=== PATIENT | male | born 1955 | race Hispanic/Latino ===

== ENCOUNTER 2022-07-20 08:41 | Inpatient (IN) | payer BC, OTHER, SELFPAY ==
[2022-07-20] MEDS ORDERED: ONDANSETRON 4 MG/2 ML VIAL ONE ×2 (09:17→18:50)
[2022-07-20] MEDS ORDERED: NA CHLORIDE 0.9% 1,000 ML ONE ×2 (09:17→15:22)
[2022-07-20 09:20] LABS: Absolute Lymphocytes (CBC) 0.5 K/uL (0.7-4.9); Hematocrit 33.8 % (39.6-49.0); Lymphocytes % 5.3 % (15.3-44.8); MCV 87.6 fL (80-100); MPV 8.5 fL (7.6-11.3); RBC Red Blood Cell Count 3.86 M/uL (4.33-5.43)
[2022-07-20 09:36] LABS: Bilirubin Total 0.7 mg/dL (0.2-1.0); Potassium 5.1 mmol/L (3.5-5.1); Protein, Total 5.8 g/dL (6.4-8.2)
[2022-07-20] MEDS ORDERED: NA CHLORIDE 0.9% 500 ML ONE (09:49)
[2022-07-20] MEDS ORDERED: AMLODIPINE 10 MG TAB ONE (10:11)
--- NOTE | 2022-07-20 10:21 | RAD REPORT ---
EXAM DESCRIPTION: CTChest Abd Pelvis Wo Con - 07/20/2022 10:02 am CLINICAL HISTORY: fall, rib pain, back pain COMPARISON: CT CHEST ABD PELVIS WO CONT dated 09/20/2007 TECHNIQUE: CT of the chest, abdomen, and pelvis was performed. All CT scans are performed using dose optimization technique as appropriate and may include automated exposure control or mA/KV adjustment according to patient size. FINDINGS: Thorax: Chest Wall: No abnormal mass Lungs: Nodular airspace disease in the superior segment of the left lower lobe. Likely atelectasis as a result of the fusion. Pleura: Small to moderate right pleural effusion. Kari/Mediastinum: No lymphadenopathy. Aorta/Pulmonary Arteries: Unremarkable Heart: Normal size. Multi-vessel coronary artery disease. Small pericardial effusion. Abdomen/Pelvis: Liver: No acute abnormality or suspicious lesions. Biliary: Cholelithiasis. Distended gallbladder. Stomach: No significant focal abnormality. Duodenum: No significant focal abnormality. Pancreas: No significant abnormality. Spleen: No significant abnormality. Adrenal: No suspicious lesions. Kidney/ureter: No hydronephrosis. No renal calculi. Atrophic igiugig kidneys. Right upper pole renal l esion which is likely a cyst. Right iliac fossa renal transplant. No hydronephrosis. Retroperitoneum: No retroperitoneal adenopathy. Vascular: No aneurysm. Advanced atherosclerosis. Bowel: Liquid contents within the rectum.. Peritoneum: No ascites or free air. Bladder: Grossly unremarkable. Reproductive: No masses identified. Bones: No acute fracture. Other: n/a IMPRESSION: 1. No evidence of significant trauma to the chest abdomen, or pelvis. 2. Small to moderate right pleural effusion and likely underlying atelectasis. Very mild nodularity i n the superior segment of the left lower lobe could reflect mild pneumonia or pneumonitis. 3. Distended gallbladder with cholelithiasis but no definite evidence of acute cholecystitis. Could c orrelate with LFTs.
[2022-07-20 10:22] LABS: SARS-COV-2 RT PCR NEGATIVE (NEGATIVE)
--- NOTE | 2022-07-20 11:59 | EDPHYS ---
Physician Documentation [facility] Name: Rg Benavides Jr Age: 66 yrs Sex: Male : 1955 Arrival Date: 07/20/2022 Time: 08:47 Bed 6 Private MD: ED Physician Jeison Rodriguez HPI: 07/20 08:54 This 66 yrs old Male presents to ER via Unassigned with complaints of Diarrhea.rn 08:54 The patient presents to the emergency department with diarrhea. Onset: The rn symptoms/episode began/occurred last night. Possible causes: bowel prep for colonoscopy today. The symptoms are aggravated by bowel prep The symptoms are alleviated by nothing. Associated signs and symptoms: Pertinent positives: diarrhea, nausea, weakness. Severity of symptoms: At their worst the symptoms were moderate in the emergency department the symptoms are unchanged. The patient has not experienced similar symptoms in the past. The patient has not recently seen a physician. Pt reports diarrhea that began last night after starting bowel prep, generalized weakness and fatigue. Denies feeling ill prior to starting bowel prep. NO blood in stool. States was scheduled for colonoscopy today at [facility], was being done for anemia of unknown origin. Pt with hx of kidney cancer and kidney transplant. . Historical: - Allergies: 08:55 PENICILLINS; kc6 08:55 Vancomycin; kc6 - Home Meds: 09:56 pantoprazole 40 mg oral TbEC [Active]; insulin aspart [Active]; tresiba [Active]; kc6 acyclovir 200 mg oral cap [Active]; allopurinol 100 mg oral tab [Active]; amlodipine 10 mg oral tab [Active]; atorvastatin 10 mg oral tab [Active]; furosemide 40 mg oral tab [Active]; mycophenolate [Active]; prednisone 5 mg oral tab [Active]; tacrolimus 1 mg oral cap [Active]; - PMHx: 08:55 Diabetes mellitus; kc6 09:56 Hypertensive disorder; hyperlipidemia; kc6 - PSHx: 09:56 right kidney removal; kc6 - Immunization history:: Client reports receiving the 2nd dose of the Covid vaccine, Flu vaccine is not up to date. - Social history:: Smoking status: Patient denies any tobacco usage or history of. - Family history:: not pertinent. - Hospitalizations: : No recent hospitalization is reported. ROS: 08:54 Constitutional: Negative for fever, chills, and weight loss, Eyes: Negative for injury, rn pain, redness, and discharge, Cardiovascular: Negative for chest pain, palpitations, and edema, Respiratory: Negative for shortness of breath, cough, wheezing, and pleuritic chest pain, Abdomen/GI: + nausea and diarrhea Back: Negative for injury and pain, MS/Extremity: Negative for injury and deformity, Skin: Negative for injury, rash, and discoloration, Neuro: + generalized weakness Exam: 08:54 Constitutional: Thin male, tremulous Head/Face: Normocephalic, atraumatic. ENT: dry rn MM Cardiovascular: Regular rate and rhythm. No pulse deficits. Respiratory: + mild tachypnea, no retractions Abdomen/GI: soft, non-tender, non-distended Skin: Warm, dry MS/ Extremity: Pulses equal, no cyanosis. Stool down left leg. Neuro: Awake and alert, GCS 15 15:39 ECG was reviewed by the Attending Physician. rn Vital Signs: 08:52 BP 213 / 96; Pulse 81; Resp 22 S; Temp 97.9(O); Pulse Ox 97% on R/A; Weight 63.5 kg kc6 (R); Height 5 ft. 10 in. (177.80 cm) (R); Pain 0/10; 09:15 BP 220 / 80; Pulse 71; Resp 15 S; Pulse Ox 94% on R/A; Pain 0/10; kc6 10:15 BP 196 / 74; Pulse 69; Resp 18 S; Pulse Ox 92% on R/A; kc6 11:37 BP 219 / 100; Pulse 76; Resp 25; Pulse Ox 95% on R/A; ld1 12:37 BP 183 / 68; Pulse 69; Resp 17 S; Pulse Ox 96% on R/A; kc6 13:30 BP 182 / 69; Pulse 67; Resp 18 S; Pulse Ox 96% on R/A; kc6 08:52 Body Mass Index 20.09 (63.50 kg, 177.80 cm) kc6 MDM: 08:47 Patient medically screened. rn 11:05 ED course: states was vomiting last week, CT shows questionable pneumonitis. 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 They are speaking with his doctors at [facility] and we will discuss again. . 11:56 Differential diagnosis: viral gastroenteritis, gastroenteritis, diarrhea from colon rn prep, volume depletion, aspiration, pneumonia, covid, flu, kidney failure. Data reviewed: vital signs, nurses notes, lab test result(s). 11:57 Consideration of Admission/Observation Patient was admitted/placed on observation. rn Escalation of care including admission/observation considered. Independent interpretation of the following test(s) in the Emergency Department. Historians other than the Patient: Spouse/Significant Other: Most of history from spouse and family. Counseling: I had a detailed discussion with the patient and/or guardian regarding: the historical points, exam findings, and any diagnostic results supporting the discharge/admit diagnosis, lab results, radiology results, the need for further work-up and treatment in the hospital. Response to treatment: the patient's symptoms have mildly improved after treatment, and as a result, I will admit patient. ED course: Pt still very weak, spouse spoke with kidney doctor at [facility], does not want patient transferred to [facility], recommends admission with abx for possible aspiration, fluids, and then can f/u for another colonoscopy and EGD.. 17:12 ED course: Pt since arrival has been awake, answering all of my questions was alert and rn oriented to person/place/situation. Pt dehydrated and somnolent but answering all of my questions entire visit.. 07/20 08:48 Order name: CBC with Diff rn 07/20 08:48 Order name: CMP rn 07/20 08:48 Order name: Lipase rn 07/20 08:48 Order name: COVID-19/FLU A+B rn 07/20 09:22 Order name: CBC with Automated Diff; Complete Time: 09:32 EDMS 07/20 09:36 Order name: Comprehensive Metabolic Panel; Complete Time: 09:43 EDMS 07/20 09:36 Order name: Lipase; Complete Time: 09:43 EDMS 07/20 10:22 Order name: COVID-19/FLU A+B; Complete Time: 10:40 EDMS 07/20 15:38 Order name: Phosphorus; Complete Time: 17:11 EDMS 07/20 15:38 Order name: Creatine Phosphokinase; Complete Time: 17:11 EDMS 07/20 15:38 Order name: NT PRO-BNP; Complete Time: 17:11 EDMS 14 15:38 Order name: T4 Free; Complete Time: 17:11 EDMS 14 15:38 Order name: Magnesium; Complete Time: 17:11 EDMS 14 15:38 Order name: Thyroid Stimulating Hormone; Complete Time: 17:11 EDMS 14 08:48 Order name: IV Saline Lock; Complete Time: 08:58 rn 07/20 09:44 Order name: CT Chest Abdomen Pelvis W/O Contrast rn 07/20 10:12 Order name: Diet Ada 1800 García; Complete Time: 10:12 aa5 07/20 10:21 Order name: CT; Complete Time: 10:40 EDMS 02 11:57 Order name: EKG; Complete Time: 11:57 rn 07/20 15:23 Order name: CT; Complete Time: 17:11 EDMS 07/20 16:40 Order name: Ammonia; Complete Time: 17:11 EDMS 07/20 17:06 Order name: Glucose, Ancillary Testing; Complete Time: 17:11 EDMS 07/20 21:41 Order name: Glucose, Ancillary Testing EDMS 07/20 23:45 Order name: ABG Arterial Blood Gas EDMS 07/20 08:48 Order name: Labs collected and sent; Complete Time: 09:12 rn 14 08:48 Order name: Cardiac monitoring; Complete Time: 08:58 rn 14 08:48 Order name: O2 Sat Monitoring; Complete Time: 08:58 rn 07/20 11:57 Order name: EKG - Nurse/Tech; Complete Time: 12:24 rn EC:39 Rate is 70 beats/min. Rhythm is regular. QRS [place] is Normal. TN interval is prolonged rn at 250 msec. QRS interval is normal. QT interval is normal. No Q waves. T waves are Normal. No ST changes noted. Clinical impression: 1st degree heart block. Interpreted by me. Reviewed by me. Administered Medications: 09:18 Drug: Zofran (Ondansetron) 4 mg Route: IVP; Site: right antecubital; kc6 10:18 Follow up: Response: No adverse reaction; Nausea is decreased kc6 09:19 Drug: NS 0.9% 1000 ml Route: IV; Rate: 1 bolus; Site: right antecubital; kc6 10:19 Follow up: Response: No adverse reaction; IV Status: Completed infusion; IV Intake: kc6 1000ml 09:47 Drug: NS 0.9% 500 ml Route: IV; Rate: bolus; Site: right antecubital; ld1 10:47 Follow up: Response: No adverse reaction; IV Status: Completed infusion; IV Intake: kc6 500ml 10:09 Drug: amLODIPine 10 mg Route: PO; kc6 11:09 Follow up: Response: No adverse reaction kc6 12:39 Drug: Clindamycin 600 mg Route: IVPB; Infused Over: 30 mins; Site: right antecubital; kc6 13:00 Follow up: Response: No adverse reaction; IV Status: Completed infusion; IV Intake: [id number] 13:38 Drug: LevaQUIN (levofloxacin) 500 mg Volume: 100 ml; Route: IVPB; Infused Over: 60 kc6 mins; Site: right antecubital; 07/21 07:35 Follow up: Response: No adverse reaction; IV Status: Completed infusion; IV Intake: kc6 100ml Disposition Summary: 07/20/22 11:59 Hospitalization Ordered Hospitalization Status: Observation rn Provider: Jacob Mercedes rn Condition: Stable rn Problem: new rn Symptoms: have improved rn Bed/Room Type: Standard rn Location: Telemetry/MedSurg (observation)(07/21/22 00:19) cg Room Assignment: [facility](07/21/22 00:19) Diagnosis - Diarrhea, unspecified rn - Muscle weakness (generalized) rn - Dehydration rn - Acute interstitial pneumonitis rn Forms: - Medication Reconciliation Form rn - SBAR form rn Signatures: Dispatcher [employer] EDJeison Myrick MD MD rn Garcia, Cindy RN RN Olivia Cota RN RN [id number] Camilla Tanner RN RN Rosy Good, RN RN kc6 Corrections: (The following items were deleted from the chart) 07/20 14:20 11:59 Telemetry/MedSurg (observation) lala turcios 14:20 11:59 rn karolina 07/21 00:19 07/20 14:20 [facility] ER HOLD [email or web address] cg 07/21 00:19 07/20 14:20 ERHOLD- jlMaegan cg
--- NOTE | 2022-07-20 11:59 | ER ---
Nurse's Notes [facility] Name: Rg Benavides Jr Age: 66 yrs Sex: Male : 1955 Arrival Date: 07/20/2022 Time: 08:47 Bed 6 Private MD: Diagnosis: Diarrhea, unspecified;Muscle weakness (generalized);Dehydration;Acute interstitial pneumonitis Presentation: 07/20 08:52 Chief complaint: EMS states: client [facility] this morning at kc6 1030 for a colonoscopy. stated diarrhea with the bowel prep and has just not "felt right". Coronavirus screen: Vaccine status: Patient reports receiving the 2nd dose of the covid vaccine. At this time, the client does not indicate any symptoms associated with coronavirus-19. Ebola Screen: No symptoms or risks identified at this time. Initial Sepsis Screen: Does the patient meet any 2 criteria? No. Patient's initial sepsis screen is negative. Does the patient have a suspected source of infection? No. Patient's initial sepsis screen is negative. Risk Assessment: Do you want to hurt yourself or someone else? Patient reports no desire to harm self or others. Onset of symptoms was July 20, 2022. 08:52 Method Of Arrival: EMS: [facility] 08:52 Acuity: EVARISTO 3 kc6 Triage Assessment: 08:55 General: Appears in no apparent distress. uncomfortable, Behavior is calm, cooperative, kc6 appropriate for age. Pain: Denies pain. EENT: No signs and/or symptoms were reported regarding the EENT system. Neuro: Asif Agitation-Sedation Scale (RASS): 0 - Alert and Calm Level of Consciousness is awake, alert, obeys commands, Oriented to person, place, Appropriate for age. Cardiovascular: Capillary refill < 3 seconds. Respiratory: Airway is patent Trachea midline Respiratory effort is even, unlabored, Respiratory pattern is regular, symmetrical. GI: Abdomen is flat, non-distended, Bowel sounds present X 4 quads. Reports diarrhea, nausea, vomiting, Patient currently denies abdominal pain. : No signs and/or symptoms were reported regarding the genitourinary system. Derm: No signs and/or symptoms reported regarding the dermatologic system. Skin is intact, Skin is dry, Skin is pale, Skin temperature is warm. Musculoskeletal: No signs and/or symptoms reported regarding the musculoskeletal system. Circulation, motion, and sensation intact. Capillary refill < 3 seconds, Range of motion: intact in all extremities. Historical: - Allergies: 08:55 PENICILLINS; kc6 08:55 Vancomycin; kc6 - Home Meds: 09:56 pantoprazole 40 mg oral TbEC [Active]; insulin aspart [Active]; tresiba [Active]; kc6 acyclovir 200 mg oral cap [Active]; allopurinol 100 mg oral tab [Active]; amlodipine 10 mg oral tab [Active]; atorvastatin 10 mg oral tab [Active]; furosemide 40 mg oral tab [Active]; mycophenolate [Active]; prednisone 5 mg oral tab [Active]; tacrolimus 1 mg oral cap [Active]; - PMHx: 08:55 Diabetes mellitus; kc6 09:56 Hypertensive disorder; hyperlipidemia; kc6 - PSHx: 09:56 right kidney removal; kc6 - Immunization history:: Client reports receiving the 2nd dose of the Covid vaccine, Flu vaccine is not up to date. - Social history:: Smoking status: Patient denies any tobacco usage or history of. - Family history:: not pertinent. - Hospitalizations: : No recent hospitalization is reported. Screenin:58 [facility] ED Fall Risk Assessment (Adult) History of falling in the last 3 months, kc6 including since admission No falls in past 3 months (0 pts) Confusion or Disorientation No (0 pts) Intoxicated or Sedated No (0 pts) Impaired Gait No (0 pts) Mobility Assist Device Used No (0 pt) Altered Elimination No (0 pt) Score/Fall Risk Level 0 - 2 = Low Risk Oriented to surroundings, Maintained a safe environment, Educated pt \\T\\ family on fall prevention, incl call for assistance when getting out of bed, Assessed \\T\\ reinforced patient's understanding of fall precautions, Hourly rounding (assess needs \\T\\ fall precautionary measures) done. Abuse screen: Denies threats or abuse. Denies injuries from another. Nutritional screening: No deficits noted. Tuberculosis screening: No symptoms or risk factors identified. Assessment: 08:52 Reassessment: please see triage assessment. [facility] 09:52 Reassessment: Patient appears in no apparent distress at this time. No changes from [facility] previously documented assessment. Patient and/or family updated on plan of care and expected duration. Pain level reassessed. 10:52 Reassessment: Patient appears in no apparent distress at this time. No changes from kc6 previously documented assessment. Patient and/or family updated on plan of care and expected duration. Pain level reassessed. 11:52 Reassessment: Patient appears in no apparent distress at this time. Patient and/or kc6 family updated on plan of care and expected duration. Pain level reassessed. 12:52 Reassessment: Patient appears in no apparent distress at this time. No changes from kc6 previously documented assessment. Patient and/or family updated on plan of care and expected duration. Pain level reassessed. 13:00 Reassessment: please see [facility] for further charting. kc6 17:00 Reassessment: Pt family reporting pt is altered - "not normal for him, he doesn't know ld1 who we are or what is going on. He woke up this morning different and extremely confused. He stopped taking eliquis on Tuesday prior to the bowel prep." Called Dr. Mercedes, ordered MRI. Dr. Mercedes aware of situation. 17:15 Reassessment: Pt displaying confusion, incontinent, unable to answer orientation ld1 questions, does not recognize family. Notified Dr. Mercedes of confusion. 17:15 General: Appears in no apparent distress. comfortable, slender, Behavior is calm. ld1 Neuro: Level of Consciousness is awake, confused, Oriented to none. Cardiovascular: Capillary refill < 3 seconds Patient's skin is warm and dry. Rhythm is sinus rhythm. Respiratory: Airway is patent Respiratory effort is even, unlabored. GI: Last BM at 18:43. Vital Signs: 08:52 BP 213 / 96; Pulse 81; Resp 22 S; Temp 97.9(O); Pulse Ox 97% on R/A; Weight 63.5 kg kc6 (R); Height 5 ft. 10 in. (177.80 cm) (R); Pain 0/10; 09:15 BP 220 / 80; Pulse 71; Resp 15 S; Pulse Ox 94% on R/A; Pain 0/10; kc6 10:15 BP 196 / 74; Pulse 69; Resp 18 S; Pulse Ox 92% on R/A; kc6 11:37 BP 219 / 100; Pulse 76; Resp 25; Pulse Ox 95% on R/A; ld1 12:37 BP 183 / 68; Pulse 69; Resp 17 S; Pulse Ox 96% on R/A; kc6 13:30 BP 182 / 69; Pulse 67; Resp 18 S; Pulse Ox 96% on R/A; kc6 08:52 Body Mass Index 20.09 (63.50 kg, 177.80 cm) kc6 ED Course: 08:47 Patient arrived in ED. rn 08:47 Jeison Rodriguez MD is Attending Physician. rn 08:52 Rsoy Levy RN is Primary Nurse. kc6 08:55 Triage completed. kc6 08:55 Arm band placed on. kc6 08:58 Patient has correct armband on for positive identification. Bed in low position. Call kc6 light in reach. Side rails up X2. Adult w/ patient. 08:58 Maintain EMS IV. Dressing intact. Good blood return noted. Site clean \\T\\ dry. Gauge \\T\\ larry 6 site: 20G LAC. 09:18 CBC with Diff Sent. kc6 09:18 COVID-19/FLU A+B Sent. kc6 09:18 CMP Sent. kc6 09:18 Lipase Sent. kc6 09:19 Inserted saline lock: 20 gauge in right antecubital area, using aseptic technique. kc6 Blood collected. 11:58 Jacob Mercedes MD is Hospitalizing Provider. rn 12:32 EKG done, by ED staff. tm3 14:18 No provider procedures requiring assistance completed. Patient admitted, IV remains in kc6 place. 18:37 Cleaned of incontinence. Linen changed. ld1 19:22 Primary Nurse role handed off by Rosy Levy, NAJMA mw2 Administered Medications: 09:18 Drug: Zofran (Ondansetron) 4 mg Route: IVP; Site: right antecubital; kc6 10:18 Follow up: Response: No adverse reaction; Nausea is decreased kc6 09:19 Drug: NS 0.9% 1000 ml Route: IV; Rate: 1 bolus; Site: right antecubital; kc6 10:19 Follow up: Response: No adverse reaction; IV Status: Completed infusion; IV Intake: kc6 1000ml 09:47 Drug: NS 0.9% 500 ml Route: IV; Rate: bolus; Site: right antecubital; ld1 10:47 Follow up: Response: No adverse reaction; IV Status: Completed infusion; IV Intake: kc6 500ml 10:09 Drug: amLODIPine 10 mg Route: PO; kc6 11:09 Follow up: Response: No adverse reaction kc6 12:39 Drug: Clindamycin 600 mg Route: IVPB; Infused Over: 30 mins; Site: right antecubital; kc6 13:00 Follow up: Response: No adverse reaction; IV Status: Completed infusion; IV Intake: [id number] 13:38 Drug: LevaQUIN (levofloxacin) 500 mg Volume: 100 ml; Route: IVPB; Infused Over: 60 kc6 mins; Site: right antecubital; 07/21 07:35 Follow up: Response: No adverse reaction; IV Status: Completed infusion; IV Intake: kc6 100ml Medication: 07/20 14:19 VIS not applicable for this client. kc6 Intake: 10:19 IV: 1000ml; Total: 1000ml. kc6 10:47 IV: 500ml; Total: 1500ml. kc6 13:00 IV: 50ml; Total: 1550ml. kc6 07/21 07:35 IV: 100ml; Total: 1650ml. kc6 Outcome: 07/20 11:59 Decision to Hospitalize by Provider. rn 14:18 Admitted to ER Hold. Please see [facility] for further documentation. kc6 14:18 Condition: stable 14:18 Instructed on the need for admit. 07/21 02:29 Patient left the ED. jb4 Signatures: Luiz Rodgers tm3 Jeison Rodriguez MD MD rn Bryson, James, RN RN jb4 Ana Rosa Rodríguez mw2 Camilla Tanner RN RN ld1 Rosy Levy RN RN kc6 Corrections: (The following items were deleted from the chart) 07/20 09:53 08:55 GI: Abdomen is flat, non-distended, Bowel sounds present X 4 quads. Reports kc6 diarrhea, Patient currently denies abdominal pain, nausea, vomiting, kc6 09:53 08:55 Derm: No signs and/or symptoms reported regarding the dermatologic system. Skin kc6 is intact, Skin is pink, warm \\T\\ dry. kc6
[2022-07-20] MEDS ORDERED: CLINDAMYCIN 600MG/D5W 50 ML IV ONE (12:30)
[2022-07-20] MEDS ORDERED: Levofloxacin500mg IV 500 MG/100 ML BAG IV ONE (12:31)
[2022-07-20] MEDS ORDERED: ALBUTEROL 2.5 MG/3 ML NEB SOL NEB PRN (14:24)
[2022-07-20] MEDS ORDERED: SODIUM CHLORIDE 0.9% 10ML INJ IV PRN (14:29)
[2022-07-20] MEDS ORDERED: GLUCAGON 1 MG/VIAL IM PRN (14:30)
--- NOTE | 2022-07-20 14:31 | P.HP ---
Certification for Inpatient Patient admitted to: Inpatient With expected LOS: >2 Midnights Patient will require the following post-hospital care: None Practitioner: I am a practitioner with admitting privileges, knowledge of patient current condition, hospital course, and medical plan of care. Services: Services provided to patient in accordance with Admission requirements found in Title 42 Section 412.3 of the Code of Federal Regulations <Liliana Arizmendi - Last Filed: 07/20/22 18:31> Patient History Date of Service: 07/20/22 Reason for admission: N\V\D, AMS History of Present Illness: Patient is a 66-year-old male with a past medical history significant for DM 2, GERD, gout, HLD, kidney transplant, hypertension who presents with complaint of nausea, vomiting and diarrhea. Patient is currently alert and oriented x1, confused and unable to provide any history. Per family report patient has been having symptoms of intermittent nausea, vomiting and diarrhea for a long time now.. 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 Recently patient started having poor appetite and has lost significant amount of weight. His hemoglobin also dropped and patient's GI doctor wanted to perform a colonoscopy for further assessment. Family reported that patient started bowel prep 2 days ago and was unable to complete the regimen due to nausea, vomiting and diarrhea. Patient was also noted to be very weak and fatigued. Family also reported that patient has been having iron infusion in the last couple of months. No other signs and symptoms reported. Symptoms are aggravated or relieved by nothing. Patient was brought to the hospital for medical evaluation. - Past Medical/Surgical History -: DM 2 -: History of kidney transplant -: GERD -: HLD -: HTN -: GOUT Past Surgical History: Unable to obtain - Family History Family History: Reviewed- Non-Contributory - Social History Smoking Status: Unknown if ever smoked Alcohol use: No CD- Drugs: No Caffeine use: No Place of Residence: Home <IsrachadLiliana matute Jared - Last Filed: 07/20/22 18:31> Date of Service: 07/20/22 <Jacob Mercedes - Last Filed: 07/20/22 22:14> Allergies Penicillins Allergy (Verified 07/20/22 14:24) Itching/Hives/Rash vancomycin Allergy (Verified 07/20/22 14:24) Itching/Hives/Rash Review of Systems is unable to be obtained (Unable to obtain. Patient confused.) <KyleighLiliana Jared - Last Filed: 07/20/22 18:31> Physical Examination - Physical Exam General: Alert, Oriented x1, Cooperative, Mild distress, Confused HEENT: Atraumatic, PERRLA, Mucous membr. moist/pink, EOMI, Sclerae nonicteric Neck: Supple, 2+ carotid pulse no bruit, No LAD, Without JVD or thyroid abnormality Respiratory: Diminished Cardiovascular: No edema, Regular rate/rhythm, Normal S1 S2 Capillary refill: <2 Seconds Gastrointestinal: Hypoactive, Non-distended, No tenderness Musculoskeletal: No clubbing, No swelling, No contractures, No tenderness Integumentary: No rashes, No breakdown, No significant lesion Neurological: Normal speech, Normal tone, Normal affect Lymphatics: No axilla or inguinal lymphadenopathy - Studies Laboratory Data (last 24 hrs) 07/20/22 09:10: Sodium 137, Potassium 5.1, BUN 47 H, Creatinine 3.31 H, Glucose 131 H, Total Bilirubin 0.7, AST 10 L, ALT 11 L, Alkaline Phosphatase 111, Lipase 43 L 07/20/22 09:10: WBC 9.10, Hgb 11.0 L, Hct 33.8 L, Plt Count 257 <Liliana Arizmendi - Last Filed: 07/20/22 18:31> - Studies Laboratory Data (last 24 hrs) 07/20/22 09:10: Phosphorus 4.0, Magnesium 2.1 07/20/22 09:10: Sodium 137, Potassium 5.1, BUN 47 H, Creatinine 3.31 H, Glucose 131 H, Total Bilirubin 0.7, AST 10 L, ALT 11 L, Alkaline Phosphatase 111, Lipase 43 L 07/20/22 09:10: WBC 9.10, Hgb 11.0 L, Hct 33.8 L, Plt Count 257 <Jacob Mercedes - Last Filed: 07/20/22 22:14> Assessment and Plan - Plan --ENMA on CKD 3. Nephrology consulted. Further management per equal opportunity assistant. --Acute encephalopathy. Likely secondary to pneumonia. CT head unremarkable for any acute intracranial abnormality. MRI brain pending for further evaluation. -- Pneumonia. Continue antibiotics, neb treatment with albuterol \Atrovent and O2 therapy as needed. --Dehydration. Likely secondary to fluid losses. Further management per equal opportunity assistant. --DM2. BS monitoring with sliding scale insulin. --History of kidney transplant. Continue home medications. --Hypertension. Poorly controlled. We will allow permissive hypertension pending resolution of MRI Brain. Continue hydralazine as needed for SBP greater than 180 mmHg. --Nausea\vomiting. Antiemetics on board. Continue supportive care. --Diarrhea. Family reports longstanding intermittent diarrhea. Stool studies pending to rule out any infectious process. Continue supportive care. -- Gout. Continue home medication. --GERD. Continue Protonix. --DVT prophylaxis with heparin subQ Discharge Plan: Home Plan to discharge in: Greater than 2 days - Advance Directives Does patient have a Living Will: No Does patient have a Durable POA for Healthcare: No - Code Status/Comfort Care Code Status Assessed: Yes Physician Review: Patient Assessed, Agree with Above Assessment and Plan Critical Care: No <Liliana Arizmendi - Last Filed: 07/20/22 18:31> Physician Review: Patient Assessed, Agree with Above Assessment and Plan Physician Review Additional Text: Correction - CKD IV not ENMA. Has multiple outpatient creatinine readings of 4+. Also, tacrolimus level ordered to evaluate other causes of encephalopathy. <Jacob Mercedes - Last Filed: 07/20/22 22:14>
[2022-07-20] MEDS ORDERED: D10W 250 ML BAG IV PRN (14:34)
[2022-07-20] MEDS ORDERED: ALBUTEROL 2.5 MG/3 ML NEB SOL NEB SCH (15:00)
[2022-07-20] MEDS: ASPIRIN 81 MG CHEWABLE TABLET PO SCH (15:00)
[2022-07-20] MEDS ORDERED: NA CHLORIDE 0.9% 1,000 ML IV SCH (15:00)
[2022-07-20] MEDS ORDERED: predniSONE 10 MG TAB ONE (15:22)
[2022-07-20] MEDS ORDERED: ASPIRIN 81 MG CHEWABLE TABLET ONE (15:22)
--- NOTE | 2022-07-20 15:22 | RAD REPORT ---
EXAM DESCRIPTION: CT - Head Brain Wo Cont - 07/20/2022 3:14 pm CLINICAL HISTORY: AMS Fall, trauma, head injury COMPARISON: No comparisons TECHNIQUE: All CT scans are performed using dose optimization technique as appropriate and may inclu de automated exposure control or mA/KV adjustment according to patient size. FINDINGS: No intracranial hemorrhage, hydrocephalus or extra-axial fluid collection.Mild brain atrop hy is present.No areas of brain edema or evidence of midline shift. Vertebral atherosclerosis. The paranasal sinuses and mastoids are clear. The calvarium is intact. IMPRESSION: No acute intracranial abnormality.
[2022-07-20] MEDS: predniSONE 5 MG TAB PO SCH (15:30)
[2022-07-20 15:37] LABS: Magnesium 2.1 mg/dL (1.6-2.4)
[2022-07-20 15:38] LABS: Thyroid Stimulating Hormone 6.46 uIU/mL (0.358-3.740)
[2022-07-20] MEDS ORDERED: HYDROCODONE/APAP 5/325 MG TAB ONE (16:04)
[2022-07-20] MEDS: HYDROCODONE/APAP 5/325 MG TAB PO PRN (16:04)
[2022-07-20] MEDS: INSULIN -REGULAR HUMAN 50 UNIT/0.5 ML ML SQ SCH ×2 (16:30→21:00)
[2022-07-20] MEDS: PANTOPRAZOLE 40 MG INJ IVP SCH (17:00)
[2022-07-20] MEDS: AZITHROMYCIN IV 500 MG in NA CHLORIDE 0.9% 250 ML IVPB SCH (17:00)
--- NOTE | 2022-07-20 17:14 | P.CNS ---
Date of Consult: 07/20/22 Reason for Consult: CKD Requesting Physician: Jacob Mercedes Chief Complaint: AMS History of Present Illness: 66 yo HM CKD presented to the ER with moderate to severe, worsening AMS with associated weakness. He started a bowel prep on Tuesday for a colonoscopy that was scheduled for today. He had a fall yesterday afternoon at home but then seemed to be reasonably well the rest of the evening. He did not take his Eliquis yesterday. His found him this morning in a contracted and weakened state soiled with diarrhea. He was seen and examined in the ER. He is unable to proved an adequate HPI/ ROS. His family states that he is not himself and usually knows his medications well. +Urine output He had a kidney transplant in 2008. His current renal transplant is slowly failing but he has plans for another kidney transplant. The colonoscopy was in preparation for another renal transplant. The patient's daughter reports his serum creatinine has been running in the 4s. 08:54 This 66 yrs old Male presents to ER via Unassigned with complaints of Diarrhea.rn 08:54 The patient presents to the emergency department with diarrhea. Onset: The rn symptoms/episode began/occurred last night. Possible causes: bowel prep for colonoscopy today. The symptoms are aggravated by bowel prep The symptoms are alleviated by nothing. Associated signs and symptoms: Pertinent positives: diarrhea, nausea, weakness. Severity of symptoms: At their worst the symptoms were moderate in the emergency department the symptoms are unchanged. The patient has not experienced similar symptoms in the past. The patient has not recently seen a physician. Pt reports diarrhea that began last night after starting bowel prep, generalized weakness and fatigue. Denies feeling ill prior to starting bowel prep. NO blood in stool. States was scheduled for colonoscopy today at [facility] [place], was being done for anemia of unknown origin. Pt with hx of kidney cancer and kidney transplant. . Allergies Penicillins Allergy (Verified 07/20/22 14:24) Itching/Hives/Rash vancomycin Allergy (Verified 07/20/22 14:24) Itching/Hives/Rash Home medications list reviewed: Yes - Past Medical/Surgical History Diabetic: Yes -: CKD IV -: Kidney Transplant 2008 -: HTN -: DM II -: CAD/ PAD -: Afib - Social History Place of Residence: Home Review of Systems 10-point ROS is otherwise unremarkable General: Weakness Gastrointestinal: No Distention Neurological: Confusion Physical Examination Temp Pulse Resp BP Pulse Ox 65 16 184/75 H 97 07/20/22 16:00 07/20/22 16:00 07/20/22 16:00 07/20/22 16:00 General: In no apparent distress, Cooperative HEENT: Atraumatic Neck: Supple Respiratory: Clear to auscultation bilaterally Cardiovascular: No edema, Regular rate/rhythm Gastrointestinal: Soft and benign, Non-distended Musculoskeletal: No clubbing, No contractures Integumentary: No rashes, No cyanosis Neurological: Abnormal speech, Abnormal affect Laboratory Data (last 24 hrs) 07/20/22 09:10: Phosphorus 4.0, Magnesium 2.1 07/20/22 09:10: Sodium 137, Potassium 5.1, BUN 47 H, Creatinine 3.31 H, Glucose 131 H, Total Bilirubin 0.7, AST 10 L, ALT 11 L, Alkaline Phosphatase 111, Lipase 43 L 07/20/22 09:10: WBC 9.10, Hgb 11.0 L, Hct 33.8 L, Plt Count 257 Imagings Data: EXAM DESCRIPTION: CT - Head Brain Wo Cont - 07/20/2022 3:14 pm CLINICAL HISTORY: AMS Fall, trauma, head injury COMPARISON: No comparisons TECHNIQUE: All CT scans are performed using dose optimization technique as appropriate and may include automated exposure control or mA/KV adjustment according to patient size. FINDINGS: No intracranial hemorrhage, hydrocephalus or extra-axial fluid collection.Mild brain atrophy is present.No areas of brain edema or evidence of midline shift. Vertebral atherosclerosis. The paranasal sinuses and mastoids are clear. The calvarium is intact. IMPRESSION: No acute intracranial abnormality. EXAM DESCRIPTION: CTChest Abd Pelvis Wo Con - 07/20/2022 10:02 am CLINICAL HISTORY: fall, rib pain, back pain COMPARISON: CT CHEST ABD PELVIS WO CONT dated 09/20/2007 TECHNIQUE: CT of the chest, abdomen, and pelvis was performed. All CT scans are performed using dose optimization technique as appropriate and may include automated exposure control or mA/KV adjustment according to patient size. FINDINGS: Thorax: Chest Wall: No abnormal mass Lungs: Nodular airspace disease in the superior segment of the left lower lobe. Likely atelectasis as a result of the fusion. Pleura: Small to moderate right pleural effusion. Kari/Mediastinum: No lymphadenopathy. Aorta/Pulmonary Arteries: Unremarkable Heart: Normal size. Multi-vessel coronary artery disease. Small pericardial e ffusion. Abdomen/Pelvis: Liver: No acute abnormality or suspicious lesions. Biliary: Cholelithiasis. Distended gallbladder. Stomach: No significant focal abnormality. Duodenum: No significant focal abnormality. Pancreas: No significant abnormality. Spleen: No significant abnormality. Adrenal: No suspicious lesions. Kidney/ureter: No hydronephrosis. No renal calculi. Atrophic [place] kidneys. Right upper pole renal lesion which is likely a cyst. Right iliac fossa renal transplant. No hydronephrosis. Retroperitoneum: No retroperitoneal adenopathy. Vascular: No aneurysm. Advanced atherosclerosis. Bowel: Liquid contents within the rectum.. Peritoneum: No ascites or free air. Bladder: Grossly unremarkable. Reproductive: No masses identified. Bones: No acute fracture. Other: n/a IMPRESSION: 1. No evidence of significant trauma to the chest abdomen, or pelvis. 2. Small to moderate right pleural effusion and likely underlying atelectasis. Very mild nodularity in the superior segment of the left lower lobe could reflect mild pneumonia or pneumonitis. 3. Distended gallbladder with cholelithiasis but no definite evidence of acute cholecystitis. Could correlate with LFTs. Conclusions/Impression: CKD IV Renal Transplant 2008 -No NSAIDs -Start gentle IVF -Check tacrolimus level -Check UA -Restart Prednisone and Mycophenolate Hyperkalemia -Gentle IVF -Renal diet HTN with CKD -Hydralazine IV prn -Start Amlodipine 5mg BID DM II with CKD -RISS Anemia in chronic illness -Monitor H&H Toxic Metabolic Encephalopathy -CT Head negative for acute change -Brain MRI pending CAD PAD/ Atherosclerosis of aorta Paroxysmal Afib -Restart Eliquis -Check echocardiogram Thank you kindly for the consultation
[2022-07-20] MEDS ORDERED: PANTOPRAZOLE 40 MG INJ ONE (18:20)
[2022-07-20] MEDS ORDERED: AZITHROMYCIN 500 MG INJ IVPB ONE (18:20)
[2022-07-20] MEDS ORDERED: NA CHLORIDE 0.9% 250 ML ONE (18:21)
[2022-07-20] MEDS ORDERED: HYDRALAZINE HCL 20 MG/ML VIAL IV PRN ×2 (18:22→18:25)
[2022-07-20] MEDS: ONDANSETRON 4 MG/2 ML VIAL IV PRN (18:47)
[2022-07-20] MEDS: IPRATROPIUM BROM 0.5MG/2.5ML NEB SCH (20:00)
[2022-07-20] MEDS: NACHLORIDE 0.45% 1,000 ML IV SCH (20:00)
[2022-07-20] MEDS: ALBUTEROL 2.5 MG/3 ML NEB SOL NEB SCH (20:00)
[2022-07-20] MEDS: CEFTRIAXONE 1,000 MG in NA CHLORIDE 0.9% 50 ML IVPB SCH (20:00)
[2022-07-20] MEDS: HEPARIN 5000 UNIT/ML 1 ML VIAL SQ SCH (21:00)
[2022-07-20] MEDS: AMLODIPINE 5 MG TAB PO SCH (21:00)
[2022-07-20] MEDS ORDERED: HEPARIN 5000 UNIT/ML 1 ML VIAL ONE (21:38)
[2022-07-20] MEDS ORDERED: CEFTRIAXONE 1000 MG/VIAL ONE (21:38)
[2022-07-20] MEDS ORDERED: NA CHLORIDE 0.9% 100 ML ONE (21:39)
[2022-07-20] MEDS ORDERED: NACHLORIDE 0.45% 1,000 ML IV ONE (21:43)
--- NOTE | 2022-07-20 22:43 | P.PN ---
Date of Service: 07/20/22 Planned on starting mycophenolate 250 mg p.o. twice daily tonight as recommended by nephrology although patient still with encephalopathy, is disoriented and failed bedside swallow screen. We will need to hold oral medications tonight. Tacrolimus level sent off. Patient may require Dobbhoff if mentation does not improve overnight. MRI brain ordered. Neurological exam nonfocal.
[2022-07-20 23:42] LABS: Blood Gas Oxyhemoglobin 82.7 % (94-97); Blood O2 Saturation 85.6 % (92-98.5)
[2022-07-21] MEDS: ALBUTEROL 2.5 MG/3 ML NEB SOL NEB SCH ×2 (02:00→08:00)
[2022-07-21] MEDS ORDERED: levETIRAcetam 1,000 MG in NA CHLORIDE 0.9% 100 ML IV ONE (02:41)
[2022-07-21] MEDS ORDERED: NA CHLORIDE 0.9% 100 ML ONE (02:58)
[2022-07-21] MEDS ORDERED: LEVETIRACETAM 500 MG/5 ML VIAL IV ONE (03:02)
[2022-07-21] MEDS: IPRATROPIUM BROM 0.5MG/2.5ML NEB SCH ×2 (03:10→08:00)
[2022-07-21 04:10] LABS: Absolute Lymphocytes (CBC) 0.3 K/uL (0.7-4.9); Hematocrit 31.3 % (39.6-49.0); Lymphocytes % 3.8 % (15.3-44.8); MCV 88.4 fL (80-100); MPV 9.1 fL (7.6-11.3); RBC Red Blood Cell Count 3.54 M/uL (4.33-5.43)
[2022-07-21 04:48] LABS: Potassium 5.3 mmol/L (3.5-5.1); Thyroid Stimulating Hormone 3.66 uIU/mL (0.358-3.740)
[2022-07-21 04:57] LABS: Blood Morphology Comment NOTED (NOT SEEN); Platelet Estimate ADEQ
[2022-07-21 05:07] LABS: Arterial Blood Carboxyhemoglob 1.7 % (0-1.5); Blood Gas Oxyhemoglobin 85.3 % (94-97); Blood O2 Saturation 88.1 % (92-98.5)
[2022-07-21] MEDS: INSULIN -REGULAR HUMAN 50 UNIT/0.5 ML ML SQ SCH ×4 (07:30→21:00)
--- NOTE | 2022-07-21 07:52 | RAD REPORT ---
EXAM DESCRIPTION: RADChest Single View07/21/2022 5:40 am CLINICAL HISTORY: eval poss pneumonia/aspiration COMPARISON: CHEST PA AND LAT 2 VIEW dated 09/20/2007; Chest Abd Pelvis Wo Con dated 07/20/2022 TECHNIQUE: Single AP view of the chest. FINDINGS: Developing retrocardiac consolidative opacity, as well as patchy opacification in the righ t basal lung. Mildly prominent central interstitium. Right costophrenic angle is not well evaluated g iven superimposition of an extracorporeal structure. No pneumothorax or effusion. The cardiomediastin al contours are unremarkable. IMPRESSION: Bibasilar airspace opacities as above, concerning for underlying pneumonia. Prominence o f the central interstitium could reflect a component of pulmonary edema as well.
[2022-07-21] MEDS: ASPIRIN 81 MG CHEWABLE TABLET PO SCH (07:59)
[2022-07-21] MEDS: AMLODIPINE 5 MG TAB PO SCH ×3 (07:59→22:42)
[2022-07-21] MEDS: predniSONE 5 MG TAB PO SCH (07:59)
[2022-07-21] MEDS ORDERED: LORazepam 2 MG/ML VIAL IV ONE (08:00)
[2022-07-21] MEDS: AZITHROMYCIN IV 500 MG in NA CHLORIDE 0.9% 250 ML IVPB SCH (08:15)
[2022-07-21] MEDS: HEPARIN 5000 UNIT/ML 1 ML VIAL SQ SCH ×2 (08:16→20:46)
[2022-07-21] MEDS: PANTOPRAZOLE 40 MG INJ IVP SCH (08:16)
[2022-07-21] MEDS: CEFTRIAXONE 1,000 MG in NA CHLORIDE 0.9% 50 ML IVPB SCH (08:16)
[2022-07-21] MEDS: NACHLORIDE 0.45% 1,000 ML IV SCH (08:17)
[2022-07-21] MEDS: levETIRAcetam 500 MG in NA CHLORIDE 0.9% 100 ML IV SCH ×2 (08:59→20:45)
[2022-07-21] MEDS ORDERED: ALBUTEROL 2.5 MG/3 ML NEB SOL NEB PRN (09:06)
--- NOTE | 2022-07-21 09:07 | P.PN ---
Subjective Date of Service: 07/21/22 Chief Complaint: AMS Overnight, he had a witnessed tonic-clonic seizure, which lasted for about 4 minutes, with a post-ictal state. He appears more confused this morning compared to yesterday. He has no prior history of seizures. Per family, he was last known normal about 2 days ago. Review of Systems Unremarkable Physical Examination - Vital Signs Temperature: 97.0 F Blood Pressure: 171/78 Pulse: 98 Respirations: 18 Pulse Ox (%): 100 - Physical Exam General: In no apparent distress, Confused HEENT: Atraumatic, Sclerae nonicteric Neck: JVD not distended Respiratory: Diminished, Rhonchi/gurgles Cardiovascular: No edema, Normal pulses, Regular rate/rhythm, No gallops, No rubs, No murmurs Gastrointestinal: Normal bowel sounds, Soft and benign, Non-distended, No tenderness, No rebound, No guarding Musculoskeletal: No clubbing Integumentary: No rashes Neurological: Other (obtunded - unable to perform reliable neurologic exam) - Studies Laboratory Data (last 24 hrs) 07/20/22 09:10: Phosphorus 4.0, Magnesium 2.1 07/20/22 09:10: Sodium 137, Potassium 5.1, BUN 47 H, Creatinine 3.31 H, Glucose 131 H, Total Bilirubin 0.7, AST 10 L, ALT 11 L, Alkaline Phosphatase 111, Lipase 43 L 07/20/22 09:10: WBC 9.10, Hgb 11.0 L, Hct 33.8 L, Plt Count 257 Assessment And Plan - Plan # Acute Toxic Metabolic Encephalopathy with Acute Seizure # Hypertensive Emergency with Acute Encephalopathy Differential diagnoses include, but are not limited to, posterior reversible encephalopathy syndrome (PRES), cerebrovascular accident, and tacrolimus toxicity. - Evaluation thus far: - Labs = Na+ 136, Ca2+ 8.3, CO2 21, Glucose 162, Ammonia 34, BUN 47, Vitamin B12 928, TSH 3.66 - ABG = pH 7.33, PCO2 40.6, PO2 60.2 - Tacrolimus level pending - Blood cultures x 2 drawn - Urinalysis = pending - CT head = " No acute intracranial abnormality." - MRI brain ordered - EEG = pending - Management plan: - Consulted Neurology and spoke with Dr. Arreola - recommendations appreciated - Consulted Nephrology and spoke with Dr. Oneil - recommendations appreciated - Per discussions with Dr. Arreola and Dr. Oneil - will transfer to the ICU and start him on nicardipine drip - Goal SBP 160-180 mmHg, drip to be discontinued if SBP drops <150 mmHg - q4hr neurochecks - Continue levetiracetam for now # Community Acquired Pneumonia - Evaluation thus far: - Does not meet sepsis criteria - Procalcitonin = pending - ABG = pH 7.33, PCO2 40.6, PO2 60.2 - Chest x-ray = "bibasilar airspace opacities as above, concerning for underlying pneumonia. Prominence of the central interstitium could reflect a component of pulmonary edema as well." - CT chest/abdomen/pelvis = "1. No evidence of significant trauma to the chest abdomen, or pelvis. 2. Small to moderate right pleural effusion and likely underlying atelectasis. Very mild nodularity in the superior segment of the left lower lobe could reflect mild pneumonia or pneumonitis. 3. Distended gallbladder with cholelithiasis but no definite evidence of acute cholecystitis. Could correlate with LFTs." - RUQ ultrasound pending - Management plan: - Consulted Respiratory Therapy - Supplemental oxygen to maintain SpO2 > 92% - Ceftriaxone 1 g IV q24hr - Azithromycin 500 mg IV q24hr - Incentive spirometry as tolerated # Chronic Kidney Disease Stage IV of Transplanted Kidney - Nephrology consutled and spoke with Dr. Oneil - recommendations appreciated - Immunosuppressants per Neph - Creatinine = near baseline - Urinalysis = pending - Monitor creatinine and urine output - If worsening, obtain renal ultrasound - Renally dose medications # Type II Diabetes Mellitus - Continue correction scale insulin # Gastroesophageal Reflux Disease - Continue pantoprazole Jacob Mercedes M.D.
--- NOTE | 2022-07-21 10:35 | P.PN ---
Nephrology note (S) Pt remains obtunded, daughters at bedside, report pt last seen in [facility] on Mon. Pt may have had a reported seizure episode overnight. EEG pending. CT head done on admission with no acute intra cranial process reported then. BP have been elevated. (O) Vitals reviewed in the EMR General: Obtunded, chronically ill appearing HEENT: Atraumatic, sclera anicteric, NC present, poor oral dentition Neck: Supple Respiratory: b/l air entry on anterior auscultation, no rhonchi Cardiovascular: No edema, Regular rate/rhythm Gastrointestinal: Soft and benign, Non-distended Musculoskeletal: Muscle mass loss Integumentary: No rashes Neurological: Obtunded, briefly opens eyes partially to physical stimuli, does not follow commands, on tremors or myoclonus noted, no increased spasticity Laboratory Data (last 24 hrs) Reviewed in the EMR Conclusions/Impression: Hx of kidney transplant remotely Transplant CKD IV, progressive it appears since 2014 (prior labs in the EMR) -Will stop IVF as pt hypertensive and chest imaging shows some congestion, PO intake is impaired but will monitor for any signs of water deficit developing Cont home IS regimen until tacrolimus level reported. Urine studies pending. Accelerated HTN -Stop IVF, will diurese gently, will place on Hydralazine IV PRN for SBP > 160 mmHg and employ other IV meds or drips if needed AMS. Seizure unspecified Unclear if related to hypertensive PRES encephalopathy vs other, pt is immunocompromised with his anti rejection regimen. Further w/u per Hospitalist team Hyperkalemia Monitor closely, will employ loop diuretics. Hiram Oneil MD, JOSE
[2022-07-21] MEDS: LABETALOL 20 MG/4ML SYRINGE IV PRN ×2 (11:48→19:50)
[2022-07-21] MEDS: FUROSEMIDE 20 MG/ 2ML VIAL IV SCH ×2 (11:48→20:46)
[2022-07-21] MEDS ORDERED: IPRATROPIUM BROM 0.5MG/2.5ML NEB PRN (12:10)
[2022-07-21] MEDS ORDERED: NICARDIPINE HCL 25 MG in NA CHLORIDE 0.9% 240 ML IV PRN (12:46)
--- NOTE | 2022-07-21 12:59 | EEG ---
CHART: [id number] TEST ID#: [id number] DATE OF STUDY: 07/21/2022 THE EEG WAS RECORDED PORTABLE IN THE PATIENT'S ROOM ON A 17 CHANNEL MACHINE. ELECTRODES WERE APPLIED IN THE USUAL MANNER USING THE INTERNATIONAL 10-20 SYSTEM. THE WAKING BACKGROUND RHYTHM IN THIS RECORD CONSISTS OF POORLY DEVELOPED AND POORLY ORGANIZED WAVES OF 5 HZ., IN A WIDE DISTRIBUTION WHICH DO NOT ATTENUATE NORMALLY WITH EYE OPENING. THERE ARE NO FOCAL OR LATERALIZING FEATURES. NO EPILEPTIFORM ACTIVITY APPEARS. SLEEP DID NOT OCCUR. HYPERVENTILATION WAS NOT PERFORMED. PHOTIC STIMULATION PRODUCED NO DRIVING BILATERALLY. IMPRESSION: THIS IS A MODERATELY ABNORMAL ROUTINE EEG DUE TO THE PRESENCE OF A MODERATELY SLOW AND POORLY EXPRESS BACKGROUND ACTIVITY. THIS IS A NON-SPECIFIC FINDING INDICATING THE PRESENCE OF A MODERATE DIFFUSE DISTURBANCE IN CEREBRAL ACTIVITY. NO EPILEPTIFORM ACTIVITY WAS RECORDED.
[2022-07-21] MEDS ORDERED: Nicardipine in Saline, Iso-Osm 20 MG/200 ML IV.SOLN. IV SCH (13:00)
--- NOTE | 2022-07-21 13:01 | EKG ---
Test Date: 2022-07-20 Test Time: 12:29:48 Timber Sizer: OLIVER MEASUREMENT RESULTS: Intervals: Rate: 70 CA: 250 QRSD: 86 QT: 412 QTc: 444 [place]: P: 82 CA: 250 QRS: 89 T: 58 INTERPRETIVE STATEMENTS: Sinus rhythm with 1st degree AV block Septal infarct, age undetermined Abnormal ECG Compared to ECG 08/24/2006 16:28:17 First degree AV block now present Myocardial infarct finding now present Left ventricular hypertrophy no longer present T-wave abnormality no longer present Possible ischemia no longer present Prolonged QT interval no longer present Electronically Signed On 07-21-22 12:58:59 EVP OPERATIONS by Navi Parmar
--- NOTE | 2022-07-21 13:28 | RAD REPORT ---
EXAM DESCRIPTION: US - Abdomen Exam Limited - 07/21/2022 1:18 pm CLINICAL HISTORY: gallbladder distention on CT COMPARISON: ABDOMINAL EXAM LIMITED dated 09/20/2007; Chest Abd Pelvis Wo Con dated 07/20/2022 FINDINGS: The gallbladder demonstrates shadowing gallstones. The gallbladder is distended. Trace per icholecystic fluid identified. No gallbladder wall thickening. A right pleural effusion is present. T he common bile duct is within normal limits measuring 6 mm. The liver demonstrates no findings of intrahepatic biliary dilatation. IMPRESSION: Cholelithiasis without convincing sonographic evidence of acute cholecystitis. Trace per icholecystic fluid favored to represent ascites rather than as a result of inflammation. Right-sided pleural effusion.
--- NOTE | 2022-07-21 15:06 | RAD REPORT ---
EXAM DESCRIPTION: MRI - Brain Wo Cont - 07/21/2022 2:27 pm CLINICAL HISTORY: AMS - CVA? COMPARISON: No comparisons TECHNIQUE: Sagittal T1-weighted images were obtained along with PD/heavily T2-weighted and T2-FLAIR images. Axial DWI and ADC mapping sequences were also obtained along with coronal heavily T2-weighted images were obtained. FINDINGS: No intracranial hemorrhage, mass or acute infarction. There is no edema or shift of midlin e structures. No extra-axial fluid collections. Signal voids are seen as a normal finding in the steve r intracranial vessels. Mild chronic small vessel ischemic changes. Mastoid air cells and paranasal sinuses are clear. IMPRESSION: No acute intracranial abnormality. Specifically, no evidence of acute infarct.
--- NOTE | 2022-07-21 16:34 | RAD REPORT ---
EXAM DESCRIPTION: CT - Head Brain Wo Cont - 07/21/2022 5:30 am CLINICAL HISTORY: Seizure, Decreased LOC COMPARISON: 07/20/2022 TECHNIQUE: Axial CT of the head obtained from the skull apex to the skull base without contrast. Thi s exam was performed according to our departmental dose-optimization program, which includes automate d exposure control, adjustment of the mA and/or kV according to patient size and/or use of iterative reconstruction technique. Motion artifact. FINDINGS: No acute intracranial hemorrhage identified. No mass, mass effect, shift of the midline, a bnormal extra-axial fluid collection or CT evidence of acute ischemic change identified. The ventricu lar system and sulcal spaces are mildly enlarged compatible with mild cerebral atrophy. Scattered a reas of hypodensity throughout the supratentorial white matter are nonspecific and may be related to chronic small vessel ischemic change. The visualized paranasal sinuses and mastoid air cells are well aerated. No skull fracture identifi ed. Visualized orbits and globes are unremarkable. Atherosclerotic calcification of the intracranial internal carotid and vertebral arteries. IMPRESSION: 1. No definite acute intracranial abnormality by CT criteria. Motion artifact. Electronically signed by: Gavin Soria 07/21/2022 4:47 AM DIVIDEND DEPOSIT VOUCHER CLERK Due to temporary technical issues with the PACS/Fluency reporting system, reports are being signed by the in house radiologists without review as a courtesy to insure prompt reporting. The interpreting radiologist is fully responsible for the content of the report.
--- NOTE | 2022-07-21 22:18 | RAD REPORT ---
EXAM DESCRIPTION: RAD - Abdomen 1 View (KUB) - 07/21/2022 10:10 pm CLINICAL HISTORY: placement COMPARISON: None FINDINGS/IMPRESSION: Weighted feeding tube tip overlies the stomach. Distended small bowel in the up per abdomen. Lung bases are clear. .
--- NOTE | 2022-07-21 22:49 | CON ---
Reason For Consultation: Consultation called because of new-onset seizures. History Of Present Illness: Mr. Benavides is a 66-year-old patient with multiple medical problems inclu ding diabetes mellitus type 1, gastroesophageal reflux disease, gout, chronic kidney failure, hyperte nsion who was admitted to [facility] on 07/20/2022 with nausea, vomiting, diarrhea, and conf usion. The patient's and daughters provided the history. He was somewhat somnolent and difficu lt to arouse. His noted that prior to coming into the hospital, actually the morning before his found him on the floor, as they sleep in separate rooms. His found him apparently on the floor with his arms above the head. He had urinated on himself and he was poorly responsive. Prior to that, the day before he was in his usual state, walking, ambulating without difficulty and communi cating with no problems. He reportedly had ongoing nausea, vomiting, and diarrhea, however. He did have a GI surgery removing part of his duodenum a year previously. Also, he had significant weight l oss and chronic poor appetite. The patient was undergoing bowel prep for further colonoscopy. While in hospital, his said he was brought up to the room and this was last night or early in the mor bhargav. He was observed to suddenly become unresponsive. His head extended, eyes rolled back, and his arms and legs were stiff, and he was making some gurgling sounds. She says that continued for sever al minutes, and he remained very poorly responsive since. However, his daughter has gotten him to op en the eyes and he would say baby doll to her and not much more. He did track her visually, but most of the time would remain in positive verbal stimulation with eyes closed. He would move the right a rm and left leg more spontaneously than the right leg and the left arm. His head CT scan showed no acute ischemic or hemorrhagic change. His brain MRI ruled out the presenc e of any acute ischemic or hemorrhagic findings. A repeat head CT scan also showed no acute intracra nial abnormalities. His electroencephalogram showed moderately slow background without epileptiform discharges. He was given Keppra intravenously and is maintained on 500 mg twice daily. He has not h ad recurrent seizure-like episodes. Past Medical History: As indicated including kidney transplant; gastroesophageal reflux disease; gou t; hypertension; diabetes mellitus which his says is type 1, although notes say type 2. Family History: No history of seizures. Social History: No alcohol, tobacco, or IV drug use. Review of Systems: Cannot be reliably obtained. Allergies: PENICILLIN AND VANCOMYCIN. Physical Examination: Vital Signs: Blood pressure 149/77, pulse 80, respiratory rate 15, temperature 97, oxygen saturation 93-100% on 2 L oxygen via nasal cannula. Weight 143 pounds, height 5 feet 10 inches, BMI 20. Neurologic: Mr. Benavides is lying in bed with eyes closed, but with gentle stimulation of face, the ey es do either open or he forces them close more forcefully by stimulating the face. He did open the e yes and again did say to his daughter, baby doll as he is looking at her. He did move the right arm more to stimulation. The left, not much, but there was a board with an IV in place. He did move his left leg more than the right leg and to light stimulation. His face appears to have a slight decrea se of the right side compared to the left at the nasolabial fold. However, unable to get him to do a smile to assess excursion. His tone appears normal and reflexes are symmetrically depressed. Unabl e to assess his gait. Laboratory Studies: Complete blood count with differential shows white blood cell count 7.6, hemoglo bin 10.4, platelets 213. Arterial blood gas shows pH 7.33, PCO2 40, PO2 is low at 60.2. Sodium 136, potassium 5.3, chloride 106, carbon dioxide 21, BUN 47, creatinine 3.25. His glucose ranged from 11 6 to 162, calcium 8.3. Procalcitonin elevated to 0.62. Ammonia level of 34. TSH normal at 3.66. A ST is 10, ALT 11, alkaline phosphate is 111, magnesium 2.1. Blood level of tacrolimus is spending. COVID-19, and influenza A and B are negative. Urinalysis results pending. Chest x-ray shows bibasil ar airspace opacities concerning for underlying pneumonia. Prominence of central interstitial could reflect component of pulmonary edema. Assessment: Mr. Benavides is a 66-year-old patient with multiple medical problems as noted above who [place] s new onset seizures possibly 2 episodes. His brain MRI is negative for an acute ischemic stroke. H e has no evidence of bleeding as well. The etiology for the possible seizures is unclear. He potent ially has a pneumonia with elevated procalcitonin and chest x-ray suggestive of pneumonia. He has no t had additional seizure-like episodes since being on Keppra 500 mg twice daily. Plan: He may require monitoring on the EEG to help rule out the presence of intermittent episodes, b ut the current EEG shows no evidence of epileptiform activity, just a slow background consistent with moderate encephalopathy. He has possible pneumonia, is treated with antibiotics per primary team in cluding ceftriaxone and azithromycin. He is now in ICU for close monitoring. He will be followed wh ile in hospital. JOSE/KAREN Voice ID: [id number] Report ID: [id number]
[2022-07-22] MEDS: LABETALOL 20 MG/4ML SYRINGE IV PRN (02:41)
[2022-07-22 05:07] LABS: Specific Gravity 1.008 (1.005-1.030); Urine Bacteria None Seen /HPF (<20); Urine Bilirubin NEGATIVE (Negative); Urine Blood Negative (Negative); Urine Clarity Clear (Clear); Urine Color Light-Yellow (Yellow); Urine Glucose NEGATIVE (Negative); Urine Protein 2+ (Negative); Urine RBC <5 /HPF (None Seen); Urine Urobilinogen Normal (Normal)
[2022-07-22 05:07] LABS: Absolute Lymphocytes (CBC) 0.4 K/uL (0.7-4.9); Hematocrit 27.4 % (39.6-49.0); Lymphocytes % 7.7 % (15.3-44.8); MCV 88.6 fL (80-100); MPV 8.6 fL (7.6-11.3); RBC Red Blood Cell Count 3.09 M/uL (4.33-5.43)
[2022-07-22 05:55] LABS: Urine Protein/Creatinine Ratio 5.66 ratio (<0.15)
[2022-07-22] MEDS: INSULIN -REGULAR HUMAN 50 UNIT/0.5 ML ML SQ SCH ×4 (07:30→20:34)
[2022-07-22] MEDS: AMLODIPINE 5 MG TAB PO SCH ×2 (08:49→20:26)
[2022-07-22] MEDS: ASPIRIN 81 MG CHEWABLE TABLET PO SCH (08:49)
[2022-07-22] MEDS: ATORVASTATIN 10 MG TAB PO SCH (08:49)
[2022-07-22] MEDS: CEFTRIAXONE 1,000 MG in NA CHLORIDE 0.9% 50 ML IVPB SCH (08:50)
[2022-07-22] MEDS: AZITHROMYCIN IV 500 MG in NA CHLORIDE 0.9% 250 ML IVPB SCH (08:50)
[2022-07-22] MEDS: PANTOPRAZOLE 40 MG INJ IVP SCH (08:50)
[2022-07-22] MEDS: FUROSEMIDE 20 MG/ 2ML VIAL IV SCH ×2 (08:51→20:25)
[2022-07-22] MEDS: predniSONE 5 MG TAB PO SCH (08:51)
[2022-07-22] MEDS: allopurinoL 100 MG TAB PO SCH (08:51)
[2022-07-22] MEDS: ACYCLOVIR 400 MG TABLET PO SCH (08:51)
[2022-07-22] MEDS: HEPARIN 5000 UNIT/ML 1 ML VIAL SQ SCH ×2 (08:52→20:25)
[2022-07-22] MEDS ORDERED: HOME MED 1 EA UNK (Mycophenolate Mofetil [Cellcept] 500 MG Tablet) PO SCH (09:00)
[2022-07-22] MEDS: MYCOPHENOLATE MOFETIL 500 MG PO SCH ×2 (10:26→20:27)
[2022-07-22] MEDS: levETIRAcetam 500 MG in NA CHLORIDE 0.9% 100 ML IV SCH ×2 (10:27→20:26)
--- NOTE | 2022-07-22 13:06 | P.PN ---
Subjective Date of Service: 07/22/22 Chief Complaint: AMS No acute events overnight. He has had no recurrent episodes of seizures. His nicardipine drip was weaned and his mental status has improved significantly. He is now alert and oriented x 4. He does not remember all the details of what transpired yesterday. Review of Systems 10-point ROS is otherwise unremarkable Neurological: Confusion (improved) Physical Examination - Vital Signs Temperature: 97.9 F Blood Pressure: 185/58 Pulse: 80 Respirations: 16 Pulse Ox (%): 100 - Physical Exam General: Alert, In no apparent distress, Oriented x3 HEENT: Atraumatic, Mucous membr. moist/pink, EOMI, Sclerae nonicteric Neck: JVD not distended Respiratory: Diminished, Rhonchi/gurgles Cardiovascular: No edema, Regular rate/rhythm, Normal S1 S2, No gallops, No rubs, No murmurs Gastrointestinal: Normal bowel sounds, Soft and benign, Non-distended, No tenderness, No rebound, No guarding Musculoskeletal: No clubbing Integumentary: No rashes Neurological: Normal speech, Normal strength at 5/5 x4 extr, Normal tone, S ensation intact, Cranial nerves 3-12 intact, Normal affect Assessment And Plan - Plan # Acute Toxic Metabolic Encephalopathy with Acute Seizure - concern for Posterior Reversible Encephalopathy Syndrome (PRES) - improved # Hypertensive Emergency with Acute Encephalopathy Differential diagnoses include, but are not limited to, posterior reversible encephalopathy syndrome (PRES), cerebrovascular accident, and tacrolimus toxicity. - Evaluation thus far: - Labs = Na+ 136, Ca2+ 8.3, CO2 21, Glucose 162, Ammonia 34, BUN 47, Vitamin B12 928, TSH 3.66 - ABG = pH 7.33, PCO2 40.6, PO2 60.2 - Tacrolimus level pending - Blood cultures x 2 drawn - Urinalysis = unremarkable - CT head = " No acute intracranial abnormality." - MRI brain = "No acute intracranial abnormality. Specifically, no evidence of acute infarct." - EEG = pending - Management plan: - Consulted Neurology and spoke with Dr. Arreola - recommendations apprec iated - Consulted Nephrology and spoke with Dr. Oneil - recommendations appreciated - Per discussions with Dr. Arreola and Dr. Oneil - was transferred to the ICU and start him on nicardipine drip - He has been weaned off, with significant improvement in his mental status - goal SBP for today will be 150-170 mmHg - q4hr neurochecks - Continue levetiracetam for now # Community Acquired Pneumonia - Evaluation thus far: - Does not meet sepsis criteria - Procalcitonin = pending - ABG = pH 7.33, PCO2 40.6, PO2 60.2 - Chest x-ray = "bibasilar airspace opacities as above, concerning for underlying pneumonia. Prominence of the central interstitium could reflect a component of pulmonary edema as well." - CT chest/abdomen/pelvis = "1. No evidence of significant trauma to the chest abdomen, or pelvis. 2. Small to moderate right pleural effusion and likely underlying atelectasis. Very mild nodularity in the superior segment of the left lower lobe could reflect mild pneumonia or pneumonitis. 3. Distended gallbladder with cholelithiasis but no definite evidence of acute cholecystitis. Could correlate with LFTs." - RUQ ultrasound = "cholelithiasis without convincing sonographic evidence of acute cholecystitis. Trace pericholecystic fluid favored to represent ascites rather than as a result of inflammation. 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 Oneil - recommendations appreciated - Immunosuppressants per Neph - Creatinine = near baseline - Urinalysis = unremarkable - Monitor creatinine and urine output - If worsening, obtain renal ultrasound - Renally dose medications # Type II Diabetes Mellitus - Continue correction scale insulin # Gastroesophageal Reflux Disease - Continue pantoprazole Jacob Mercedes M.D.
--- NOTE | 2022-07-22 22:46 | P.PN ---
Date of Service: 07/22/22 Vital Signs Temp Pulse Resp BP Pulse Ox 97.2 F 89 18 166/139 H 100 07/22/22 20:00 07/22/22 22:00 07/22/22 22:00 07/22/22 22:00 07/22/22 22:00 Medications Acetaminophen (Acetaminophen 325 Mg Tablet) 650 mg PO Q6H PRN PRN Reason: TEMP > 100' F Hydrocodone Bitart/Acetaminophen (Hydrocodone/Apap 5/325 Mg Tab) 1 tab PO Q6H PRN PRN Reason: Pain scale 5-7 (Moderate) Last Admin: 07/20/22 16:04 Dose: 1 tab Acyclovir (Acyclovir 400 Mg Tablet) 200 mg PO DAILY [facility] Last Admin: 07/22/22 08:51 Dose: 200 mg Albuterol Sulfate (Albuterol 2.5 Mg/3 Ml Neb Bebe) 2.5 mg NEB [id number] PRN PRN Reason: SHORTNESS OF BREATH Allopurinol (Allopurinol 100 Mg Tab) 200 mg PO DAILY [facility] Last Admin: 07/22/22 08:51 Dose: 200 mg Amlodipine Besylate (Amlodipine 5 Mg Tab) 5 mg PO BID [facility] Last Admin: 07/22/22 20:26 Dose: 5 mg Aspirin (Aspirin 81 Mg Chewable Tablet) 81 mg PO DAILY [facility] Last Admin: 07/22/22 08:49 Dose: 81 mg Atorvastatin Calcium (Atorvastatin 10 Mg Tab) 10 mg PO DAILY [facility] Last Admin: 07/22/22 08:49 Dose: 10 mg Dextrose (D10w 250 Ml Bag) 125 ml IV PRN PRN; Protocol PRN Reason: HYPOGLYCEMIA Furosemide (Furosemide 20 Mg/ 2ml Vial) 20 mg IV BID [facility] Last Admin: 07/22/22 20:25 Dose: 20 mg Glucagon (Glucagon 1 Mg/Vial) 1 mg IM 1X PRN PRN Reason: HYPOGLYCEMIA Heparin Sodium (Porcine) (Heparin 5000 Unit/Ml 1 Ml Vial) 5,000 unit SQ Q12HR [facility] Last Admin: 07/22/22 20:25 Dose: 5,000 unit Home Med (Mycophenolate Mofetil [Cellcept]) 250 mg PO BID [facility] Last Admin: 07/22/22 20:27 Dose: 250 mg Hydralazine HCl (Hydralazine Hcl 20 Mg/Ml Vial) 5 mg IV Q6HP PRN PRN Reason: SBP > 160 Azithromycin 500 mg/ Sodium (Chloride) 250 mls @ 250 mls/hr IVPB DAILY [facility]; Protocol Last Admin: 07/22/22 08:50 Dose: 250 mls Ceftriaxone Sodium 1,000 mg/ (Sodium Chloride) 50 mls @ 100 mls/hr IVPB DAILY [facility]; Protocol Last Admin: 07/22/22 08:50 Dose: 50 mls Levetiracetam 500 mg/ Sodium (Chloride) 105 mls @ 420 mls/hr IV BID [facility] Last Admin: 07/22/22 20:26 Dose: 105 mls Nicardipine HCl 25 mg/ Sodium (Chloride) 250 mls @ 50 mls/hr IV UD PRN; Protocol PRN Reason: BP PARAMETERS Last Admin: 07/21/22 17:06 Dose: 250 mls Insulin Human Regular (Insulin -Regular Human 50 Unit/0.5 Ml Ml) 0 unit SQ ACHS [facility]; Protocol Last Admin: 07/22/22 20:34 Dose: Not Given Ipratropium Teague (Ipratropium Brom 0.5mg/2.5ml) 0.5 mg NEB [id number] PRN PRN Reason: SHORTNESS OF BREATH Labetalol HCl (Labetalol 20 Mg/4ml Syringe) 10 mg IV Q4H PRN PRN Reason: SBP > 160. Hold if HR < 60 Last Admin: 07/22/22 02:41 Dose: 10 mg Ondansetron HCl (Ondansetron 4 Mg/2 Ml Vial) 4 mg IV Q6HP PRN PRN Reason: NAUSEA / VOMITING Last Admin: 07/20/22 18:47 Dose: 4 mg Pantoprazole Sodium (Pantoprazole 40 Mg Inj) 40 mg IVP DAILY [facility]; Protocol Last Admin: 07/22/22 08:50 Dose: 40 mg Prednisone (Prednisone 5 Mg Tab) 5 mg PO DAILY [facility] Last Admin: 07/22/22 08:51 Dose: 5 mg Sodium Chloride (Flush Normal Saline 10 Ml) 10 ml IV BID [facility] Last Admin: 07/22/22 20:26 Dose: 10 ml Sodium Chloride (Sodium Chloride 0.9% 10ml Inj) 10 ml IV UD PRN PRN Reason: Diluant Last Admin: 07/20/22 18:46 Dose: 10 ml Assessment/ Plan: Nephrology No dyspnea No chest pain Improving mental status and appetite No acute events overnight Vitals, medications, blood work and imaging reviewed in the chart. General: In no apparent distress, Cooperative HEENT: Atraumatic Neck: Supple Respiratory: Clear to auscultation bilaterally Cardiovascular: No edema, Regular rate/rhythm Gastrointestinal: Soft and benign, Non-distended Musculoskeletal: No clubbing, No contractures Integumentary: No rashes, No cyanosis Neurological: Abnormal speech, Abnormal affect Laboratory Data (last 24 hrs) 07/20/22 09:10: Phosphorus 4.0, Magnesium 2.1 07/20/22 09:10: Sodium 137, Potassium 5.1, BUN 47 H, Creatinine 3.31 H, Glucose 131 H, Total Bilirubin 0.7, AST 10 L, ALT 11 L, Alkaline Phosphatase 111, Lipase 43 L 07/20/22 09:10: WBC 9.10, Hgb 11.0 L, Hct 33.8 L, Plt Count 257 Imagings Data: EXAM DESCRIPTION: CT - Head Brain Wo Cont - 07/20/2022 3:14 pm CLINICAL HISTORY: AMS Fall, trauma, head injury COMPARISON: No comparisons TECHNIQUE: All CT scans are performed using dose optimization technique as appropriate and may include automated exposure control or mA/KV adjustment according to patient size. FINDINGS: No intracranial hemorrhage, hydrocephalus or extra-axial fluid collection.Mild brain atrophy is present.No areas of brain edema or evidence of midline shift. Vertebral atherosclerosis. The paranasal sinuses and mastoids are clear. The calvarium is intact. IMPRESSION: No acute intracranial abnormality. EXAM DESCRIPTION: CTChest Abd Pelvis Wo Con - 07/20/2022 10:02 am CLINICAL HISTORY: fall, rib pain, back pain COMPARISON: CT CHEST ABD PELVIS WO CONT dated 09/20/2007 TECHNIQUE: CT of the chest, abdomen, and pelvis was performed. All CT scans are performed using dose optimization technique as appropriate and may include automated exposure control or mA/KV adjustment according to patient size. FINDINGS: Thorax: Chest Wall: No abnormal mass Lungs: Nodular airspace disease in the superior segment of the left lower lobe. Likely atelectasis as a result of the fusion. Pleura: Small to moderate right pleural effusion. Kari/Mediastinum: No lymphadenopathy. Aorta/Pulmonary Arteries: Unremarkable Heart: Normal size. Multi-vessel coronary artery disease. Small pericardial effusion. Abdomen/Pelvis: Liver: No acute abnormality or suspicious lesions. Biliary: Cholelithiasis. Distended gallbladder. Stomach: No significant focal abnormality. Duodenum: No significant focal abnormality. Pancreas: No significant abnormality. Spleen: No significant abnormality. Adrenal: No suspicious lesions. Kidney/ureter: No hydronephrosis. No renal calculi. Atrophic [place] kidneys. Right upper pole renal lesion which is likely a cyst. Right iliac fossa renal transplant. No hydronephrosis. Retroperitoneum: No retroperitoneal adenopathy. Vascular: No aneurysm. Advanced atherosclerosis. Bowel: Liquid contents within the rectum.. Peritoneum: No ascites or free air. Bladder: Grossly unremarkable. Reproductive: No masses identified. Bones: No acute fracture. Other: n/a IMPRESSION: 1. No evidence of significant trauma to the chest abdomen, or pelvis. 2. Small to moderate right pleural effusion and likely underlying atelectasis. Very mild nodularity in the superior segment of the left lower lobe could reflect mild pneumonia or pneumonitis. 3. Distended gallbladder with cholelithiasis but no definite evidence of acute cholecystitis. Could correlate with LFTs. Conclusions/Impression: CKD IV with proteinuria Renal Transplant 2008 -No NSAIDs -Tacrolimus level pending -Continue Prednisone and Mycophenolate -Family reports he is supposed to have an ATG injection on Tuesday Hyperkalemia -Renal diet HTN with CKD -Hydralazine IV prn -Start Nifedipine ER 30mg BID DM II with CKD -RISS Anemia in chronic illness -Monitor H&H Toxic Metabolic Encephalopathy suspicious for PRES -CT Head negative for acute change -Brain MRI reviewed CAD PAD/ Atherosclerosis of aorta Paroxysmal Afib
[2022-07-22] MEDS ORDERED: NIFEDIPINE XL 30 MG TABLET PO SCH (23:00)
[2022-07-23 05:31] LABS: Absolute Lymphocytes (CBC) 0.4 K/uL (0.7-4.9); Hematocrit 29.4 % (39.6-49.0); Lymphocytes % 5.8 % (15.3-44.8); MCV 88.1 fL (80-100); RBC Red Blood Cell Count 3.33 M/uL (4.33-5.43)
[2022-07-23 05:44] LABS: Magnesium 2.1 mg/dL (1.6-2.4); Phosphorus 5.7 mg/dL (2.5-4.9); Potassium 5.1 mmol/L (3.5-5.1)
--- NOTE | 2022-07-23 05:55 | P.PN ---
Subjective Date of Service: 07/23/22 Chief Complaint: AMS No acute events overnight. He has had no recurrent episodes of confusion or seizures. He has remained off of the nicardipine drip and was started on nifedipine PO. Plan to downgrade out of ICU to Med/Surg floor this morning. He denies any headaches, visual changes, weakness, numbness/tingling, or any other neurologic symptoms. Review of Systems 10-point ROS is otherwise unremarkable Neurological: Confusion (resolved) Physical Examination - Vital Signs Temperature: 97.0 F Blood Pressure: 174/83 Pulse: 82 Respirations: 16 Pulse Ox (%): 96 Assessment And Plan - Plan - Physical Exam General: Alert, In no apparent distress, Oriented x3 HEENT: Atraumatic, Mucous membr. moist/pink, EOMI, Sclerae nonicteric Neck: JVD not distended Respiratory: Diminished, Faint rhonchi/gurgles Cardiovascular: No edema, Regular rate/rhythm, No murmurs Gastrointestinal: Soft, Non-distended, No tenderness Musculoskeletal: No clubbing Integumentary: No rashes Neurological: Normal speech, Normal strength at 5/5 x4 extr, Sensation intact, Cranial nerves 3-12 intact, Normal affect # Acute Toxic Metabolic Encephalopathy with Acute Seizure - concern for Posterior Reversible Encephalopathy Syndrome (PRES) - improved # Hypertensive Emergency with Acute Encephalopathy Differential diagnoses include, but are not limited to, posterior reversible encephalopathy syndrome (PRES), cerebrovascular accident, and tacrolimus toxicity. - Evaluation thus far: - Labs = Na+ 136, Ca2+ 8.3, CO2 21, Glucose 162, Ammonia 34, BUN 47, Vitamin B12 928, TSH 3.66 - ABG = pH 7.33, PCO2 40.6, PO2 60.2 - Tacrolimus level pending - Blood cultures x 2 drawn - Urinalysis = unremarkable - CT head = " No acute intracranial abnormality." - MRI brain = "No acute intracranial abnormality. Specifically, no evidence of acute infarct." - EEG = "this is a moderately abnormal routine eeg due to the presence of a moderately slow and poorly express background activity. this is a nonspecific finding indicating the presence of a moderate diffuse disturbance in cerebral activity. no epileptiform activity was recorded." - Management plan: - Consulted Neurology and spoke with Dr. Arreola - recommendations appreciated - Consulted Nephrology and spoke with Dr. Oneil - recommendations appreciated - Per discussions with Dr. Arreola and Dr. Oneil - was transferred to the ICU and start him on nicardipine drip - He has been weaned off, with significant improvement in his mental status - goal SBP for today will be 140-160 mmHg - Increased nifedipine from 30 mg to 60 mg - if additional anti- hypertensive is required, will utilize beta-blockers as tolerated - q4hr neurochecks - Continue levetiracetam for now # Community Acquired Pneumonia - Evaluation thus far: - Does not meet sepsis criteria - Procalcitonin = 0.62 - ABG = pH 7.33, PCO2 40.6, PO2 60.2 - Chest x-ray = "bibasilar airspace opacities as above, concerning for underlying pneumonia. Prominence of the central interstitium could reflect a component of pulmonary edema as well." - CT chest/abdomen/pelvis = "1. No evidence of significant trauma to the chest abdomen, or pelvis. 2. Small to moderate right pleural effusion and likely underlying atelectasis. Very mild nodularity in the superior segment of the left lower lobe could reflect mild pneumonia or pneumonitis. 3. Distended gallbladder with cholelithiasis but no definite evidence of acute cholecystitis. Could correlate with LFTs." - RUQ ultrasound = "cholelithiasis without convincing sonographic evidence of acute cholecystitis. Trace pericholecystic fluid favored to represent ascites rather than as a result of inflammation. Right-sided pleural effusion" - Management plan: - General Surgery consulted and notification sent to Dr. 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 Oneil - recommendations appreciated - Immunosuppressants per Neph - Creatinine = near baseline - Urinalysis = unremarkable - Monitor creatinine and urine output - If worsening, obtain renal ultrasound - Renally dose medications # Type II Diabetes Mellitus - Continue correction scale insulin # Gastroesophageal Reflux Disease - Continue pantoprazole # Subclinical Hypothyroidism - TSH 6.46, Free T4 1.24 - Follow-up with PCP Jacob Mercedes M.D.
[2022-07-23] MEDS: INSULIN -REGULAR HUMAN 50 UNIT/0.5 ML ML SQ SCH ×4 (07:30→21:00)
--- NOTE | 2022-07-23 08:24 | P.PN ---
Nephrology note (S) Pt remains in the ICU but off drip(s), mentation back to baseline, denies any acute complaints such as KNOTT, CP, dyspnea. (O) Vitals reviewed in the EMR General: NAD HEENT: Atraumatic, sclera anicteric,off NC, poor oral dentition Neck: Supple Respiratory: b/l air entry on anterior auscultation, no rhonchi Cardiovascular: No edema, Regular rate/rhythm Gastrointestinal: Soft and benign, Non-distended Musculoskeletal: Muscle mass loss Integumentary: No rashes Neurological: Awake, alert, interactive, non focal Laboratory Data (last 24 hrs) Reviewed in the EMR Conclusions/Impression: Hx of kidney transplant remotely ENMA on underlying transplant CKD IV, progressive it appears since 2014 (prior labs in the EMR) -Did stop IVF early on as pt hypertensive and chest imaging showed some congestion. Cr level has bumped up by > 0.5 mg/dl from his presumed baseline, cont to monitor closely Cont home IS regimen until tacrolimus level reported. 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 Accelerated HTN, hypertensive emergency -Improved, now on PO CCB. Will add Labetalol instead of Metoprolol. AMS. Seizure unspecified Likely related to hypertensive PRES encephalopathy, improved, caution with any CANNONEER acting meds Hyperkalemia K at ULN, cont to monitor closely Hyperphosphatemia, start phos binder and target < 4.5 Hiram Oneil MD, JOSE
[2022-07-23] MEDS: AZITHROMYCIN IV 500 MG in NA CHLORIDE 0.9% 250 ML IVPB SCH (08:30)
[2022-07-23] MEDS: PANTOPRAZOLE 40 MG INJ IVP SCH (08:32)
[2022-07-23] MEDS: MYCOPHENOLATE MOFETIL 500 MG PO SCH ×2 (08:36→21:49)
[2022-07-23] MEDS: ATORVASTATIN 10 MG TAB PO SCH (08:36)
[2022-07-23] MEDS: levETIRAcetam 500 MG in NA CHLORIDE 0.9% 100 ML IV SCH ×2 (08:36→21:40)
[2022-07-23] MEDS: CEFTRIAXONE 1,000 MG in NA CHLORIDE 0.9% 50 ML IVPB SCH (08:37)
[2022-07-23] MEDS: ACYCLOVIR 400 MG TABLET PO SCH (08:38)
[2022-07-23] MEDS: HEPARIN 5000 UNIT/ML 1 ML VIAL SQ SCH ×2 (08:38→21:23)
[2022-07-23] MEDS: ASPIRIN 81 MG CHEWABLE TABLET PO SCH (08:38)
[2022-07-23] MEDS: allopurinoL 100 MG TAB PO SCH (08:45)
[2022-07-23] MEDS: predniSONE 5 MG TAB PO SCH (09:00)
[2022-07-23] MEDS ORDERED: NIFEDIPINE XL 30 MG TABLET PO SCH (09:00)
[2022-07-23] MEDS ORDERED: LABETALOL HCL 100 MG TAB PO SCH (09:00)
[2022-07-23] MEDS ORDERED: NIFEDIPINE XL 60 MG TABLET PO SCH (09:00)
[2022-07-23] MEDS ORDERED: AMLODIPINE 5 MG TAB PO SCH (09:00)
[2022-07-23] MEDS ORDERED: Ringers Lactate 500 ML IV ONE (11:27)
[2022-07-23] MEDS ORDERED: Ringers Lactate 1,000 ML IV SCH (12:00)
[2022-07-23] MEDS: SEVELAMER CARBONATE 800 MG TABLET PO SCH ×2 (12:00→17:00)
--- NOTE | 2022-07-23 16:06 | CON ---
Date of Consultation: 07/23/2022 Brief History Of Present Illness: Patient is a 66-year-old male who presents to the [facility] on 07/20/2022 with complaints of diarrhea. He has the symptoms begin prior to his arrival the day before. He had worsening symptoms, worsening pain as well and had been attempting a prep for colonos copy in [facility] for workup of anemia. He does have a history of kidney cancer and a kidne y transplant before in the past. Past Medical History: Includes diabetes, hypertension, hyperlipidemia, kidney cancer. Past Surgical History: Includes nephrectomy and endoscopies. Allergies: PENICILLIN, VANCOMYCIN. Home Medications: Include pantoprazole, insulin, Tresiba, acyclovir, allopurinol, amlodipine, atorva statin, Lasix, mycophenolate, prednisone, tacrolimus. Review of Systems: 10-point review of systems at the time of my exam, other than HPI, denies. Physical Examination: General: He is awake, alert, and oriented. Psychiatric: Appropriate, conversive. HEENT: Normocephalic. Sclerae anicteric. Mucous membranes are moist. Oropharynx clear. Neck: Supple without JVD. Chest: Expansion and excursion. Cardiovascular: Regular rate and rhythm. Pulmonary: Clear to auscultation bilaterally. Abdomen: Soft, nontender, nondistended. There is a well-healed right lower quadrant surgical scar w here a palpable implanted kidney is noted, but the remainder of his examination is unremarkable. It is nontender completely to all examinations. Jacobson sign was negative. Extremities: No clubbing, cyanosis, edema. Skin: Warm and dry. Laboratory Data: Revealed a white blood cell count of 6.0, hemoglobin 9.2, hematocrit 29.4, platelet count was 201. His sodium was 137, potassium 5.1, chloride is 105, carbon dioxide 21, BUN 45, creat inine 3.8, glucose was 112. His T bilirubin on admission was 0.7. AST 10, ALT 11, alkaline phosphat ase 111. His lipase was 43. He had imaging performed, which included an abdominal ultrasound [facility] on 07/21, officially read as cholelithiasis without convincing sonographic evidence of acute chol ecystitis. Trace pericholecystic fluid favored to represent ascites rather than a result of inflamma tion, right-sided pleural effusion. He additionally had a CT chest, abdomen, pelvis on 07/20/2022, o fficially read as no evidence of significant trauma to the chest, abdomen, pelvis; [id number] right pleural effusion; underlying atelectasis; very mild nodularity in the superior segment of the left lower lobe, may reflect pneumonia or pneumonitis; distended gallbladder with cholelithiasis, but no definite evidence of cholecystitis. Assessment And Plan: 1.This is a 66-year-old male who comes in with multiple issues, hypertension in the ICU for mental s tatus change during his admission with no significant improvement. No abdominal pain, but concerning findings on his imaging. As such, we will recommend a HIDA scan, although I feel the likelihood of him having a gallbladder disease is low given his current clinical condition. We will order HIDA sca n to rule out possible biliary tract disease. 2.Continue medical management. 3.I have explained risks, benefits, alternatives of the above stated plan. Patient agrees to procee d as indicated. SERAFIN/KAREN Voice ID: [id number] Report ID: [id number]
--- NOTE | 2022-07-23 18:11 | RAD REPORT ---
EXAM DESCRIPTION: NM - Hepatobiliary System Imagin - 07/23/2022 4:54 pm CLINICAL HISTORY: Gallbladder distention on CT. Evaluate for cholecystitis. COMPARISON: Abdominal ultrasound 07/21/2022. CT chest abdomen pelvis 07/20/2022. TECHNIQUE: The patient was administered approximately 6.0 millicurie Tc99m mebrofenin. Imaging of th e right upper quadrant was performed initially for up to 120 minutes. Given nonvisualization of the g allbladder up to that time point, delayed imaging versus morphine administration were considered, how ever the patient expressed desire to abort imaging, therefore the study was terminated prematurely. FINDINGS: Of note, the patient reported no food intake over the past 24 hours, apart from a small am ount of juice yesterday. There is homogeneous uptake of radiopharmaceutical throughout the liver. There is no delay in visuali zation of the biliary tree or duodenum. Gallbladder was not visualized throughout the study. The patient tolerated the procedure up to the point of imaging termination, without complications. IMPRESSION: Nonvisualization of the gallbladder. The study is indeterminate, as this could be relate d to the somewhat prolonged duration since timing of last food intake, versus obstruction of the cyst ic duct. Normal tracer excretion in the small bowel, confirming patent extrahepatic bile ducts.
[2022-07-23] MEDS: ACETAMINOPHEN 325 MG TABLET PO PRN (19:30)
[2022-07-23] MEDS ORDERED: NA CHLORIDE 0.9% 100 ML ONE (21:26)
[2022-07-23] MEDS ORDERED: LEVETIRACETAM 500 MG/5 ML VIAL IV ONE (21:30)
[2022-07-24 03:14] VITALS: BMI 19.3
[2022-07-24 06:51] LABS: Absolute Lymphocytes (CBC) 0.2 K/uL (0.7-4.9); Hematocrit 25.1 % (39.6-49.0); Lymphocytes % 3.7 % (15.3-44.8); MCV 89.3 fL (80-100); MPV 9.4 fL (7.6-11.3); RBC Red Blood Cell Count 2.81 M/uL (4.33-5.43)
[2022-07-24 07:07] LABS: Magnesium 2.2 mg/dL (1.6-2.4); Phosphorus 6.3 mg/dL (2.5-4.9)
[2022-07-24 07:09] LABS: Potassium 5.7 mmol/L (3.5-5.1)
[2022-07-24] MEDS: INSULIN -REGULAR HUMAN 50 UNIT/0.5 ML ML SQ SCH ×4 (07:30→20:34)
[2022-07-24 07:42] LABS: Burr Cells FEW; Platelet Estimate ADEQ; Target Cells FEW; White Blood Cell Scan OK (OK)
[2022-07-24] MEDS: CEFTRIAXONE 1,000 MG in NA CHLORIDE 0.9% 50 ML IVPB SCH (08:33)
[2022-07-24 08:34] LABS: Potassium 5.9 mmol/L (3.5-5.1)
[2022-07-24 08:34] LABS: Blood Morphology Comment NOTED (NOT SEEN)
[2022-07-24] MEDS: PANTOPRAZOLE 40 MG INJ IVP SCH (08:34)
[2022-07-24] MEDS: AZITHROMYCIN IV 500 MG in NA CHLORIDE 0.9% 250 ML IVPB SCH (08:34)
[2022-07-24] MEDS: HEPARIN 5000 UNIT/ML 1 ML VIAL SQ SCH ×2 (08:34→20:33)
[2022-07-24] MEDS: ACYCLOVIR 400 MG TABLET PO SCH (08:35)
[2022-07-24] MEDS: ASPIRIN 81 MG CHEWABLE TABLET PO SCH (08:35)
[2022-07-24] MEDS: allopurinoL 100 MG TAB PO SCH (08:35)
[2022-07-24] MEDS: MYCOPHENOLATE MOFETIL 500 MG PO SCH ×2 (08:36→20:34)
[2022-07-24] MEDS: predniSONE 5 MG TAB PO SCH (08:36)
[2022-07-24] MEDS: ATORVASTATIN 10 MG TAB PO SCH (08:36)
[2022-07-24] MEDS: levETIRAcetam 500 MG in NA CHLORIDE 0.9% 100 ML IV SCH ×2 (08:37→20:33)
[2022-07-24] MEDS: SEVELAMER CARBONATE 800 MG TABLET PO SCH ×3 (08:46→16:25)
[2022-07-24] MEDS: TACROLIMUS 1 MG PO SCH ×2 (09:17→20:33)
--- NOTE | 2022-07-24 10:40 | RAD REPORT ---
EXAM DESCRIPTION: CT - Head Brain Wo Cont - 07/24/2022 10:32 am CLINICAL HISTORY: reported slureed speech now resolved COMPARISON: Head Brain Wo Cont dated 07/21/2022; Head Brain Wo Cont dated 07/20/2022 TECHNIQUE: All CT scans are performed using dose optimization technique as appropriate and may inclu de automated exposure control or mA/KV adjustment according to patient size. FINDINGS: No intracranial hemorrhage, hydrocephalus or extra-axial fluid collection.No areas of brai n edema or evidence of midline shift. The paranasal sinuses and mastoids are clear. The calvarium is intact. IMPRESSION: No acute intracranial abnormality.
[2022-07-24] MEDS ORDERED: D50W 25 GM/50 ML SYRINGE IV PRN (12:41)
[2022-07-24] MEDS ORDERED: GLUCAGON 1 MG/VIAL IM PRN (12:41)
[2022-07-24] MEDS ORDERED: FUROSEMIDE 40 MG/4 ML VIAL IV ONE (13:00)
[2022-07-24] MEDS ORDERED: INSULIN LISPRO 100 UNIT/1 ML SQ SCH (13:00)
[2022-07-24] MEDS ORDERED: SODIUM ZIRCONIUM CYCLOSILICATE 10 GM/PKT PO ONE (13:00)
[2022-07-24] MEDS ORDERED: D10W 250 ML IV ONE (13:00)
--- NOTE | 2022-07-24 13:12 | P.PN ---
Subjective Date of Service: 07/24/22 Chief Complaint: AMS No acute events overnight. He appears much improved this morning in regards to his mental status. His primary concern today is generalized weakness. Dr. Oden has been in touch with his radiology technologist, Dr. Mcnair, and collectively they have elected to proceed with dialysis. He denies any headaches, visual changes, numbness/tingling, or any other neurologic symptoms. Review of Systems 10-point ROS is otherwise unremarkable General: Weakness (generalized) Neurological: Confusion (improved) Physical Examination - Vital Signs Temperature: 99.8 F Blood Pressure: 130/60 Pulse: 80 Respirations: 20 Pulse Ox (%): 90 Assessment And Plan - Plan - Physical Exam General: Alert, In no apparent distress, Oriented x3 HEENT: Atraumatic, Mucous membr. moist/pink, EOMI, Sclerae nonicteric Neck: JVD not distended Respiratory: Diminished, but clear to auscultation Cardiovascular: No edema, Regular rate/rhythm, No murmurs Gastrointestinal: Soft, Non-distended, No tenderness Musculoskeletal: No clubbing Integumentary: No rashes Neurological: Normal speech, Normal strength at 5/5 x4 extr, Sensation intact, Cranial nerves 3-12 intact, Normal affect # Acute Toxic Metabolic Encephalopathy with Acute Seizure - concern for Posterior Reversible Encephalopathy Syndrome (PRES) - resolved # Hypertensive Emergency with Acute Encephalopathy - Evaluation thus far: - Labs = Na+ 136, Ca2+ 8.3, CO2 21, Glucose 162, Ammonia 34, BUN 47, Vitamin B12 928, TSH 3.66 - ABG = pH 7.33, PCO2 40.6, PO2 60.2 - Tacrolimus level = 5.5 - Blood cultures x 2 drawn - Urinalysis = unremarkable - CT head = " No acute intracranial abnormality." - MRI brain = "No acute intracranial abnormality. Specifically, no evidence of acute infarct." - EEG = "this is a moderately abnormal routine eeg due to the presence of a moderately slow and poorly express background activity. this is a nonspecific finding indicating the presence of a moderate diffuse disturbance in cerebral activity. no epileptiform activity was recorded." - Management plan: - Consulted Neurology and spoke with Dr. Arreola - recommendations appreciated - Consulted Nephrology and spoke with Dr. Oden - recommendations appreciated - q4hr neurochecks - Continue levetiracetam for now # Acute Kidney Injury on Chronic Kidney Disease Stage IV of Transplanted Kidney - Nephrology consulted and spoke with Dr. Oden - recommendations appreciated - Immunosuppressants per Neph - Plan for placement of dialysis catheter on 07/26/2022 - General Surgery consulted and spoke with Dr. Fischer - Creatinine = near baseline - Urinalysis = unremarkable - Renal ultrasound = pending - Monitor creatinine and urine output - Renally dose medications # Community Acquired Pneumonia - Evaluation thus far: - Does not meet sepsis criteria - Procalcitonin = 0.62 - ABG = pH 7.33, PCO2 40.6, PO2 60.2 - Chest x-ray = "bibasilar airspace opacities as above, concerning for underlying pneumonia. Prominence of the central interstitium could reflect a component of pulmonary edema as well." - CT chest/abdomen/pelvis = "1. No evidence of significant trauma to the chest abdomen, or pelvis. 2. Small to moderate right pleural effusion and likely underlying atelectasis. Very mild nodularity in the superior segment of the left lower lobe could reflect mild pneumonia or pneumonitis. 3. Distended gallbladder with cholelithiasis but no definite evidence of acute cholecystitis. Could correlate with LFTs." - RUQ ultrasound = "cholelithiasis without convincing sonographic evidence of acute cholecystitis. Trace pericholecystic fluid favored to represent ascites rather than as a result of inflammation. Right-sided pleural effusion" - HIDA scan = "Nonvisualization of the gallbladder. The study is indeterminate, as this could be related to the somewhat prolonged duration since timing of last food intake, versus obstruction of the cystic duct. Normal tracer excretion in the small bowel, confirming patent extrahepatic bile ducts." - General Surgery consulted and spoke with Dr. Fischer - recommendations appreciated - Management plan: - Consulted Respiratory Therapy - Supplemental oxygen to maintain SpO2 > 92% - Ceftriaxone 1 g IV q24hr - Azithromycin 500 mg IV q24hr - Incentive spirometry as tolerated # Type II Diabetes Mellitus - Continue correction scale insulin # Gastroesophageal Reflux Disease - Continue pantoprazole # Subclinical Hypothyroidism - TSH 6.46, Free T4 1.24 - Follow-up with PCP Jacob Mercedes M.D.
[2022-07-24 15:40] LABS: Potassium 5.3 mmol/L (3.5-5.1)
--- NOTE | 2022-07-24 16:56 | PN ---
Subjective: The patient is seen in room 203 on second floor at [facility], [place]. The patient is alert, awake, surrounded by several family members including his a nd other family members. The patient is able to answer questions. He does seem to be somewhat slow and looks tired, but he is alert, mentating well and answering questions appropriately. He states th at he has not been eating and drinking well for several days. Appetite is very poor. Food tastes po or as well. The patient does not seem to have any nausea, vomiting. Did have stroke-like symptoms, but seems like he had encephalopathy earlier with blood pressure being really high. Objective: Vital Signs: Blood pressure currently seems to be in reasonable control with last readin g of about 130/60, pulse are 80, respirations are 14 and comfortable, O2 sats are between 90-99% and stable. The patient's O2 saturation comes up when he takes deep breath. Lungs: Clear to auscultation with decreased breath sounds and few crackles at the very bases. Abdomen: Soft. Extremities: Reveal no edema. Heart: Sounds do seem to be irregular at times, question if he has some ectopic beats. Laboratory Data: Reviewed. Labs showed WBC count of 5.0, hemoglobin 7.8, hematocrit 25.1, platelet count of 169. Chemistries show potassium at 5.9, sodium at 137. Potassium earlier was 5.7, chloride is 106, bicarb is 17, BUN is 46, creatinine is 4.42, glucose is 109. Urine did not show any signifi cant blood or nitrites or leukocyte estrace, RBCs and WBCs were less than 5. There were no squamous cells seen. This was done on July 22. Medications: Chart reviewed. The patient has been on Tylenol. He has been on hydrocodone for pain p.r.n., for scale of pain greater than 5 on acyclovir. Has been on Prograf in the past and prednison e, atorvastatin, aspirin, allopurinol, albuterol inhalers, also on labetalol, has been on hydralazine , has been on Keppra, nifedipine, pantoprazole, sevelamer. Assessment And Plan: The patient with significant acute kidney injury with some mild shortness of br eath, but no edema, but some crackles in the lungs. Has not been eating and drinking well. The aura ent came in with high blood pressures and had lower blood pressures required some fluids. Currently, the blood pressure is reasonably controlled. The patient's creatinine has now gone up to 4 range. His potassium is high. He has metabolic acidosis. His hemoglobin is low at about 7.8. At this poin t, hyperkalemia is a concern. We will go ahead and give him half an ampule of D50. If that is not a vailable and cannot be found in the ER, we would consider giving him D10 with 250 cc to get some dext manolo in him and then give him insulin at about 2 units. If he gets D50, we will use about 3 units of insulin. I have discussed this with the nurse and we are looking for D50. If we do not get that, w e will do D10. Lokelma 10 g x1, bicarb 1 ampule push, Lasix of 40 mg IV x1. We will repeat lab work again at about 3:00 p.m. to check for BMP with target of getting the potassium below 5.5. I have di scussed dialysis options with the patient in detail. Also spoke with Dr. Moore, the patient's nep hrologist in [place]. The patient and the family are agreeable to initiating dialysis day 1-[address] Fischer has had visited with the patient as well. He does place PD catheters as well at his hospital. The plan so far is stabilizing in the patient over the weekend, keeping him n. p.o. tomorrow evening. On Tuesday, patient can then go for a PD catheter and the CBC placement. Then , he can start dialysis with CBC while awaiting training for the PD, once the PD catheter is settled, given his post transplant status, Dr. Fischer states he will evaluate the patient for successful ope rative placement of PD catheter. If for any reason, that is an issue, he would let us know. At this point, patient is looking comfortable. The main concern is to get his potassium in the reasonable r yina for which we have ordered the medications listed above. /KAREN Voice ID: [id number] Report ID: [id number]
[2022-07-25] MEDS: LABETALOL 20 MG/4ML SYRINGE IV PRN ×2 (00:21→04:45)
[2022-07-25 04:16] LABS: Hematocrit 25.4 % (39.6-49.0)
[2022-07-25 04:35] LABS: Potassium 4.8 mmol/L (3.5-5.1)
[2022-07-25] MEDS: HYDRALAZINE HCL 20 MG/ML VIAL IV PRN ×3 (06:38→20:01)
[2022-07-25] MEDS: INSULIN -REGULAR HUMAN 50 UNIT/0.5 ML ML SQ SCH ×4 (07:30→21:00)
[2022-07-25] MEDS: levETIRAcetam 500 MG in NA CHLORIDE 0.9% 100 ML IV SCH ×2 (09:20→20:01)
[2022-07-25] MEDS: CEFTRIAXONE 1,000 MG in NA CHLORIDE 0.9% 50 ML IVPB SCH (09:21)
[2022-07-25] MEDS: AZITHROMYCIN IV 500 MG in NA CHLORIDE 0.9% 250 ML IVPB SCH (09:21)
[2022-07-25] MEDS: PANTOPRAZOLE 40 MG INJ IVP SCH (09:22)
[2022-07-25] MEDS: predniSONE 5 MG TAB PO SCH (09:22)
[2022-07-25] MEDS: ASPIRIN 81 MG CHEWABLE TABLET PO SCH (09:22)
[2022-07-25] MEDS: ACYCLOVIR 400 MG TABLET PO SCH (09:23)
[2022-07-25] MEDS: SEVELAMER CARBONATE 800 MG TABLET PO SCH ×3 (09:23→17:23)
[2022-07-25] MEDS: ATORVASTATIN 10 MG TAB PO SCH (09:24)
[2022-07-25] MEDS: allopurinoL 100 MG TAB PO SCH (09:25)
[2022-07-25] MEDS: HEPARIN 5000 UNIT/ML 1 ML VIAL SQ SCH (09:25)
[2022-07-25] MEDS: TACROLIMUS 1 MG PO SCH ×2 (09:25→20:01)
[2022-07-25] MEDS: MYCOPHENOLATE MOFETIL 500 MG PO SCH ×2 (09:27→20:01)
[2022-07-25] MEDS: ACETAMINOPHEN 325 MG TABLET PO PRN (09:34)
--- NOTE | 2022-07-25 10:52 | P.PN ---
Subjective Date of Service: 07/25/22 Chief Complaint: AMS No acute events overnight. He states that he had three loose bowel movement yesterday. It appears the overnight team sent stool studies (culture & sensitivities, fecal leukocytes, ova & parasites). He appears very well clinically. He displays some generalized weakness - will consult PT. Plan is for dialysis catheter placement tomorrow. He denies any headaches, visual changes, numbness/tingling, or any other neurologic symptoms. Review of Systems 10-point ROS is otherwise unremarkable Gastrointestinal: Diarrhea Physical Examination - Vital Signs Temperature: 98.1 F Blood Pressure: 184/76 Pulse: 79 Respirations: 20 Pulse Ox (%): 99 Assessment And Plan - Plan - Physical Exam General: Alert, In no apparent distress, Oriented x3 HEENT: Atraumatic, Mucous membr. moist/pink, Sclerae nonicteric Neck: JVD not distended Respiratory: Diminished, but clear to auscultation Cardiovascular: No edema, Regular rate/rhythm, No murmurs Gastrointestinal: Soft, Non-distended, No tenderness Musculoskeletal: No clubbing Integumentary: No rashes Neurological: Normal speech, Normal strength at 5/5 x4 extr, Sensation intact, Cranial nerves 3-12 intact, Normal affect # Acute Toxic Metabolic Encephalopathy with Acute Seizure - concern for Posterior Reversible Encephalopathy Syndrome (PRES) - resolved # Hypertensive Emergency with Acute Encephalopathy - Evaluation thus far: - Labs = Na+ 136, Ca2+ 8.3, CO2 21, Glucose 162, Ammonia 34, BUN 47, Vitamin B12 928, TSH 3.66 - ABG = pH 7.33, PCO2 40.6, PO2 60.2 - Tacrolimus level = 5.5 - Blood cultures x 2 drawn - Urinalysis = unremarkable - CT head = " No acute intracranial abnormality." - MRI brain = "No acute intracranial abnormality. Specifically, no evidence of acute infarct." - EEG = "this is a moderately abnormal routine eeg due to the presence of a moderately slow and poorly express background activity. this is a nonspecific finding indicating the presence of a moderate diffuse disturbance in cerebral activity. no epileptiform activity was recorded." - Management plan: - Consulted Neurology and spoke with Dr. Arreola - recommendations appreciated - Consulted Nephrology and spoke with Dr. Oden - recommendations appreciated - q4hr neurochecks - Continue levetiracetam for now # Acute Kidney Injury on Chronic Kidney Disease Stage IV of Transplanted Kidney - Nephrology consulted and spoke with Dr. Oden - recommendations appreciated - Immunosuppressants per Neph - Plan for placement of dialysis catheter on 07/26/2022 - General Surgery consulted and spoke with Dr. Fischer - Creatinine = near baseline - Urinalysis = unremarkable - Renal ultrasound = pending - Monitor creatinine and urine output - Renally dose medications # Community Acquired Pneumonia - Evaluation thus far: - Does not meet sepsis criteria - Procalcitonin = 0.62 - ABG = pH 7.33, PCO2 40.6, PO2 60.2 - Chest x-ray = "bibasilar airspace opacities as above, concerning for underlying pneumonia. Prominence of the central interstitium could reflect a component of pulmonary edema as well." - CT chest/abdomen/pelvis = "1. No evidence of significant trauma to the chest abdomen, or pelvis. 2. Small to moderate right pleural effusion and likely underlying atelectasis. Very mild nodularity in the superior segment of the left lower lobe could reflect mild pneumonia or pneumonitis. 3. Distended gallbladder with cholelithiasis but no definite evidence of acute cholecystitis. Could correlate with LFTs." - RUQ ultrasound = "cholelithiasis without convincing sonographic evidence of acute cholecystitis. Trace pericholecystic fluid favored to represent ascites rather than as a result of inflammation. Right-sided pleural effusion" - HIDA scan = "Nonvisualization of the gallbladder. The study is indeterminate, as this could be related to the somewhat prolonged duration since timing of last food intake, versus obstruction of the cystic duct. Normal tracer excretion in the small bowel, confirming patent extrahepatic bile ducts." - General Surgery consulted and spoke with Dr. Fischer - recommendations appreciated - Management plan: - Consulted Respiratory Therapy - Supplemental oxygen to maintain SpO2 > 92% - Ceftriaxone 1 g IV q24hr - Azithromycin 500 mg IV q24hr - Incentive spirometry as tolerated # Type II Diabetes Mellitus - Continue correction scale insulin # Gastroesophageal Reflux Disease - Continue pantoprazole # Subclinical Hypothyroidism - TSH 6.46, Free T4 1.24 - Follow-up with PCP Jacob Mercedes M.D.
[2022-07-25] MEDS: DRISDOL (VITAMIN D=ERGOCALCIFEROL) 50000 UNIT CAP PO SCH (12:56)
--- NOTE | 2022-07-25 14:56 | PN ---
Subjective: Mr. Benavides is a 66-year-old, seen in room 203. The patient's family members are with jer dalal, including his . The patient is alert, able to communicate with me. States he is feeling very weak and tired overall. His appetite is very poor. He is not appreciating the taste of the food an d is therefore not wanting or being able to eat. His heart rate is slightly irregular with possibili ty of ectopic beats, does not seem to be exactly irregularly irregular, but does seem to have some ir regularity to it with some ectopic beats. He is otherwise doing well. Objective: Vital Signs: His blood pressure has been coming up a little bit. Vitals are relatively stable except for blood pressure being slightly on the higher side 184/76. His pulse is between 70-8 0 with some irregularity. His respirations are around 14. He is breathing comfortably with O2 sats between 95% to 100% on room air. Lungs: Clear anteriorly. Abdomen: Soft. Extremities: Do not reveal any significant edema. Laboratory Data: Reviewed. Labs show somewhat of an improvement compared to yesterday when it comes to potassium. His labs show hemoglobin of 8.2, hematocrit of 25.4, somewhat of an improvement gene red to yesterday when it was down to 7.8 hemoglobin. His chemistry shows sodium 138, potassium is im proved further from 5.3 down to 4.8, chloride is 105, bicarb is improved up to 19, BUN is 46, creatin ine is 4.52, glucose is at 136%. His GFR based on the 4.52 creatinine is around 14 mL per minute. H is calcium is about 8.1. Medications: Reviewed. The patient is currently on p.r.n. hydrocodone. He is on a low dose Zovirax . He is on allopurinol 200 mg. He is on atorvastatin. He has gotten azithromycin and ceftriaxone. Currently on hydralazine p.r.n. 5 mg and nifedipine 60 mg b.i.d. I have just started his metoprolol at 25 mg b.i.d. with parameters to hold for systolic blood pressure less than 120 and pulse less roc n 60. The patient is on low dose prednisone as well. Assessment And Plan: The patient with significant renal disease progressing at this point, will bene fit from dialysis. He seems to have some uremic symptoms including poor appetite, poor taste in his mouth, feeling weak, tired, and fatigued. His heart rate is relatively stable at about 80 with some irregularity. Also has blood pressure now going up between 150 and 180 systolic. We will go ahead a nd start low dose metoprolol with parameters. I have also discussed with the nursing staff and with the hospitalist. Consider getting Cardiology involved as well. Dr. Fischer is on board, plan is to keep him n.p.o. tonight and move forward with the procedures tomorrow for dialysis catheter insertion and possibility of PD catheter placement if surgeon deems fit to do that as well. The dialysis cath eter post placement, the patient can start with low dose dialysis and when further stabilize, can go to full dialysis while awaiting PD training and transition to PD. I have discussed all this with the patient and family. They are in agreement with the plan. Risks and benefits counseled. /KAREN Voice ID: [id number] Report ID: [id number]
[2022-07-25] MEDS ORDERED: HYDRALAZINE HCL 20 MG/ML VIAL IV ONE (16:17)
[2022-07-25] MEDS: METOPROLOL TAR 25 MG TAB PO SCH (17:23)
[2022-07-25] MEDS: HYDROCODONE/APAP 5/325 MG TAB PO PRN (18:12)
[2022-07-25] MEDS: HYDRALAZINE HCL 25 MG TABLET PO SCH (18:37)
[2022-07-26] MEDS: HYDRALAZINE HCL 20 MG/ML VIAL IV PRN ×2 (00:20→03:50)
[2022-07-26] MEDS: ONDANSETRON 4 MG/2 ML VIAL IV PRN (03:30)
[2022-07-26] MEDS ORDERED: ACETAMINOPHEN 500 MG TAB PO ONE (03:48)
[2022-07-26] MEDS ORDERED: ACETAMINOPHEN 500 MG TAB ONE (03:54)
[2022-07-26] MEDS: METOPROLOL TAR 25 MG TAB PO SCH ×2 (05:45→17:37)
[2022-07-26] MEDS: PANTOPRAZOLE 40MG TABLET PO SCH ×2 (06:30→10:16)
[2022-07-26] MEDS ORDERED: PANTOPRAZOLE 40MG TABLET PO SCH (06:30)
[2022-07-26 06:36] LABS: Absolute Lymphocytes (CBC) 0.4 K/uL (0.7-4.9); Hematocrit 28.2 % (39.6-49.0); Lymphocytes % 6.3 % (15.3-44.8); MCV 87.8 fL (80-100); MPV 9.1 fL (7.6-11.3); RBC Red Blood Cell Count 3.21 M/uL (4.33-5.43)
[2022-07-26 06:47] LABS: Potassium 4.3 mmol/L (3.5-5.1)
[2022-07-26] MEDS ORDERED: LIDOCAINE 2% MPF 5 ML VIAL ONE (07:17)
[2022-07-26] MEDS ORDERED: dexAMETHasone 4 MG/ML VIAL ONE (07:17)
[2022-07-26] MEDS ORDERED: ONDANSETRON 4 MG/2 ML VIAL ONE (07:17)
[2022-07-26] MEDS ORDERED: FENTANYL CITR 100 MCG/2 ML ONE (07:17)
[2022-07-26] MEDS ORDERED: propofoL 200 MG/20 ML VIAL IV ONE (07:17)
[2022-07-26] MEDS ORDERED: ROCURONIUM 50 MG/5 ML VIAL IV ONE (07:24)
[2022-07-26] MEDS: INSULIN -REGULAR HUMAN 50 UNIT/0.5 ML ML SQ SCH ×4 (07:30→21:00)
--- NOTE | 2022-07-26 07:53 | RAD REPORT ---
EXAM DESCRIPTION: US - Renal Ultrasound-Complete - 07/25/2022 11:58 pm CLINICAL HISTORY: Renal disease/abdominal pain COMPARISON: None. FINDINGS: The right kidney measures 9 cm with an increased echotexture. A 1.6 centimeters cyst The left kidney measures 7 cm with an increased echotexture. Hydronephrosis is not seen. No gross abnormality of bladder is noted The transplant kidney right pelvis measures 10 centimeters with a normal echotexture. No hydronephros is IMPRESSION: Unremarkable ultrasound transplant kidney.
[2022-07-26] MEDS: predniSONE 5 MG TAB PO SCH (09:00)
--- NOTE | 2022-07-26 09:49 | P.PN ---
Date of Service: 07/26/22 Vital Signs Temp Pulse Resp BP Pulse Ox 97.4 F 65 17 188/66 H 95 07/26/22 08:00 07/26/22 08:00 07/26/22 08:00 07/26/22 08:00 07/26/22 08:00 Medications Acetaminophen (Acetaminophen 325 Mg Tablet) 650 mg PO Q6H PRN PRN Reason: TEMP > 100' F Last Admin: 07/25/22 09:34 Dose: 650 mg Hydrocodone Bitart/Acetaminophen (Hydrocodone/Apap 5/325 Mg Tab) 1 tab PO Q6H PRN PRN Reason: Pain scale 5-7 (Moderate) Last Admin: 07/25/22 18:12 Dose: 1 tab Acyclovir (Acyclovir 400 Mg Tablet) 200 mg PO DAILY [facility] Last Admin: 07/25/22 09:23 Dose: 200 mg Albuterol Sulfate (Albuterol 2.5 Mg/3 Ml Neb Bebe) 2.5 mg NEB [id number] PRN PRN Reason: SHORTNESS OF BREATH Allopurinol (Allopurinol 100 Mg Tab) 200 mg PO DAILY [facility] Last Admin: 07/25/22 09:25 Dose: 200 mg Aspirin (Aspirin 81 Mg Chewable Tablet) 81 mg PO DAILY [facility] Last Admin: 07/25/22 09:22 Dose: 81 mg Atorvastatin Calcium (Atorvastatin 10 Mg Tab) 10 mg PO DAILY [facility] Last Admin: 07/25/22 09:24 Dose: 10 mg Dextrose (D10w 250 Ml Bag) 125 ml IV PRN PRN; Protocol PRN Reason: HYPOGLYCEMIA Ergocalciferol (Drisdol (Vitamin D=Ergocalciferol) 79230 Unit Cap) 50,000 unit PO Q7D@0900 [facility] Last Admin: 07/25/22 12:56 Dose: 50,000 unit Glucagon (Glucagon 1 Mg/Vial) 1 mg IM 1X PRN PRN Reason: HYPOGLYCEMIA Heparin Sodium (Porcine) (Heparin 5000 Unit/Ml 1 Ml Vial) 5,000 unit SQ Q12HR [facility] Last Admin: 07/25/22 09:25 Dose: 5,000 unit Home Med (Mycophenolate Mofetil [Cellcept]) 250 mg PO BID [facility] Last Admin: 07/25/22 20:01 Dose: 250 mg Home Med (Tacrolimus [Tacrolimus]) 2 mg PO BID [facility] Last Admin: 07/25/22 20:01 Dose: 2 mg Hydralazine HCl (Hydralazine Hcl 20 Mg/Ml Vial) 5 mg IV Q6HP PRN PRN Reason: SBP > 160 - IF LABETALOL INEFF Last Admin: 07/26/22 03:50 Dose: 5 mg Hydralazine HCl (Hydralazine Hcl 25 Mg Tablet) 25 mg PO TID [facility] Last Admin: 07/25/22 18:37 Dose: 25 mg Azithromycin 500 mg/ Sodium (Chloride) 250 mls @ 250 mls/hr IVPB DAILY [facility]; Protocol Last Admin: 07/25/22 09:21 Dose: 250 mls Ceftriaxone Sodium 1,000 mg/ (Sodium Chloride) 50 mls @ 100 mls/hr IVPB DAILY [facility]; Protocol Last Admin: 07/25/22 09:21 Dose: 50 mls Levetiracetam 500 mg/ Sodium (Chloride) 105 mls @ 420 mls/hr IV BID [facility] Last Admin: 07/25/22 20:01 Dose: 105 mls Insulin Human Regular (Insulin -Regular Human 50 Unit/0.5 Ml Ml) 0 unit SQ ACHS [facility]; Protocol Last Admin: 07/25/22 21:00 Dose: Not Given Ipratropium [place] (Ipratropium Brom 0.5mg/2.5ml) 0.5 mg NEB [id number] PRN PRN Reason: SHORTNESS OF BREATH Metoprolol Tartrate (Metoprolol Tar 25 Mg Tab) 25 mg PO BID 6AM 6PM [facility] Last Admin: 07/26/22 05:45 Dose: 25 mg Nifedipine (Nifedipine Xl 60 Mg Tablet) 60 mg PO BID [facility] Last Admin: 07/23/22 08:33 Dose: 60 mg Ondansetron HCl (Ondansetron 4 Mg/2 Ml Vial) 4 mg IV Q6HP PRN PRN Reason: NAUSEA / VOMITING Last Admin: 07/26/22 03:30 Dose: 4 mg [facility]oprazole S[facility] ([facility] Admin: 07/26/22 06:30 Dose: Not Given Prednisone (Prednisone 5 Mg Tab) 5 mg PO DAILY [facility] Last Admin: 07/25/22 09:22 Dose: 5 mg Sevelamer Carbonate (Sevelamer Carbonate 800 Mg Tablet) 800 mg PO TIDWM [facility] Last Admin: 07/25/22 17:23 Dose: 800 mg Sodium Chloride (Flush Normal Saline 10 Ml) 10 ml IV BID [facility] Last Admin: 07/25/22 20:01 Dose: 10 ml Assessment/ Plan: Nephrology No dyspnea No chest pain Poor appetite with nausea Hypertension overnight with bradycardia Did not sleep well Vitals, medications, blood work and imaging reviewed in the chart. General: In no apparent distress, Cooperative HEENT: Atraumatic Neck: Supple Respiratory: Clear to auscultation bilaterally Cardiovascular: No edema, Regular rate/rhythm Gastrointestinal: Soft and benign, Non-distended Musculoskeletal: No clubbing, No contractures Integumentary: No rashes, No cyanosis Neurological: Abnormal speech, Abnormal affect Laboratory Data (last 24 hrs) 07/20/22 09:10: Phosphorus 4.0, Magnesium 2.1 07/20/22 09:10: Sodium 137, Potassium 5.1, BUN 47 H, Creatinine 3.31 H, Glucose 131 H, Total Bilirubin 0.7, AST 10 L, ALT 11 L, Alkaline Phosphatase 111, Lipase 43 L 07/20/22 09:10: WBC 9.10, Hgb 11.0 L, Hct 33.8 L, Plt Count 257 Imagings Data: EXAM DESCRIPTION: CT - Head Brain Wo Cont - 07/20/2022 3:14 pm CLINICAL HISTORY: AMS Fall, trauma, head injury COMPARISON: No comparisons TECHNIQUE: All CT scans are performed using dose optimization technique as appropriate and may include automated exposure control or mA/KV adjustment according to patient size. FINDINGS: No intracranial hemorrhage, hydrocephalus or extra-axial fluid collection.Mild brain atrophy is present.No areas of brain edema or evidence of midline shift. Vertebral atherosclerosis. The paranasal sinuses and mastoids are clear. The calvarium is intact. IMPRESSION: No acute intracranial abnormality. EXAM DESCRIPTION: CTChest Abd Pelvis Wo Con - 07/20/2022 10:02 am CLINICAL HISTORY: fall, rib pain, back pain COMPARISON: CT CHEST ABD PELVIS WO CONT dated 09/20/2007 TECHNIQUE: CT of the chest, abdomen, and pelvis was performed. All CT scans are performed using dose optimization technique as appropriate and may include automated exposure control or mA/KV adjustment according to patient size. FINDINGS: Thorax: Chest Wall: No abnormal mass Lungs: Nodular airspace disease in the superior segment of the left lower lobe. Likely atelectasis as a result of the fusion. Pleura: Small to moderate right pleural effusion. Kari/Mediastinum: No lymphadenopathy. Aorta/Pulmonary Arteries: Unremarkable Heart: Normal size. Multi-vessel coronary artery disease. Small pericardial effusion. Abdomen/Pelvis: Liver: No acute abnormality or suspicious lesions. Biliary: Cholelithiasis. Distended gallbladder. Stomach: No significant focal abnormality. Duodenum: No significant focal abnormality. Pancreas: No significant abnormality. Spleen: No significant abnormality. Adrenal: No suspicious lesions. Kidney/ureter: No hydronephrosis. No renal calculi. Atrophic [place] kidneys. Right upper pole renal lesion which is likely a cyst. Right iliac fossa renal transplant. No hydronephrosis. Retroperitoneum: No retroperitoneal adenopathy. Vascular: No aneurysm. Advanced atherosclerosis. Bowel: Liquid contents within the rectum.. Peritoneum: No ascites or free air. Bladder: Grossly unremarkable. Reproductive: No masses identified. Bones: No acute fracture. Other: n/a IMPRESSION: 1. No evidence of significant trauma to the chest abdomen, or pelvis. 2. Small to moderate right pleural effusion and likely underlying atelectasis. Very mild nodularity in the superior segment of the left lower lobe could reflect mild pneumonia or pneumonitis. 3. Distended gallbladder with cholelithiasis but no definite evidence of acute cholecystitis. Could correlate with LFTs. Conclusions/Impression: CKD IV/V with proteinuria Renal Transplant 2008 -No NSAIDs -Continue Tacrolimus and Mycophenolate -Increase Prednisone 10mg daily -Plan to initiate dialysis due to possible uremic symptoms -Plan for PD and HD CVC Hyperkalemia -Renal diet HTN with CKD -Hydralazine IV prn -Increase Nifedipine ER 90mg BID -Continue Hydralazine DM II with CKD -RISS Moderate malnutrition with debility and anorexia -Start Nepro -Start MVI -PT as tolerated Anemia in chronic illness -Monitor H&H -Retacrit MWF Toxic Metabolic Encephalopathy suspicious for PRES -CT Head negative for acute change -Brain MRI reviewed CAD PAD/ Atherosclerosis of aorta Paroxysmal Afib complicated by bradycardia -Cardiology to evaluate
[2022-07-26] MEDS ORDERED: NIFEDIPINE XL 30 MG TABLET PO ONE (09:50)
[2022-07-26] MEDS: HYDRALAZINE HCL 25 MG TABLET PO SCH ×3 (10:14→21:36)
[2022-07-26] MEDS: allopurinoL 100 MG TAB PO SCH (10:15)
[2022-07-26] MEDS: AZITHROMYCIN IV 500 MG in NA CHLORIDE 0.9% 250 ML IVPB SCH (10:15)
[2022-07-26] MEDS: ATORVASTATIN 10 MG TAB PO SCH (10:16)
[2022-07-26] MEDS: SEVELAMER CARBONATE 800 MG TABLET PO SCH ×3 (10:16→17:38)
[2022-07-26] MEDS: ACYCLOVIR 400 MG TABLET PO SCH (10:17)
[2022-07-26] MEDS: ASPIRIN 81 MG CHEWABLE TABLET PO SCH (10:17)
[2022-07-26] MEDS: MYCOPHENOLATE MOFETIL 500 MG PO SCH ×2 (10:18→21:37)
[2022-07-26] MEDS: levETIRAcetam 500 MG in NA CHLORIDE 0.9% 100 ML IV SCH ×2 (10:18→21:36)
[2022-07-26] MEDS: TACROLIMUS 1 MG PO SCH ×2 (10:20→21:40)
[2022-07-26] MEDS: CEFTRIAXONE 1,000 MG in NA CHLORIDE 0.9% 50 ML IVPB SCH (10:54)
[2022-07-26] MEDS: EPOETIN ALFA 10,000 UNIT/ML VIAL SQ SCH (10:57)
[2022-07-26] MEDS ORDERED: predniSONE 10 MG TAB PO ONE (12:00)
[2022-07-26] MEDS: MULTIVITAMINS,THERAPEUT 1 TAB PO SCH (12:35)
[2022-07-26] MEDS: NEPRO SHAKE 237 ML CAN PO SCH ×2 (14:21→21:00)
--- NOTE | 2022-07-26 20:20 | CON ---
Date of Consultation: 07/26/2022 Reason For Consultation: Atrial fibrillation management. History Of Present Illness: This is a 66-year-old male with advanced kidney disease, admitted due to generalized weakness and there are plans for dialysis. He has chronic atrial fibrillation and used to be on Eliquis. Has diabetes, hypertension, and he is status post kidney transplant about 17 years ago that has failed. Denies having any chest pain or shortness of breath. Past Medical History: As outlined above in the HPI. Medications: Refer reconciliation sheet for detailed list. Allergies: PENICILLIN, VANCOMYCIN. Family History: No premature coronary artery disease or cancer. Social History: Does not smoke or drink. Does not use any drugs. Review of Systems: All systems reviewed and they were negative except mentioned in HPI. Physical Examination: Vital Signs: Temperature is 97.4, heart rate 65, breathing at 17, blood pressure is 169/59, saturati ng 95% on room air. General: Pleasant elderly male, in no apparent distress. Head and Neck: Pupils are equal, reactive to light. Intact eye movements. No JVD. No cervical lym phadenopathy. Neck: Supple. Thyroid is not enlarged. Lungs: Clear to auscultation bilaterally. No rhonchi, wheezing, or crackles. No accessory muscle u se. Heart: Irregularly irregular. No extra sounds. Abdomen: Soft, nontender. Bowel sounds positive. No organomegaly. No masses or hernia. No rigidi ty or rebound. Extremities: No clubbing, cyanosis. Intact pulses. Skin: No rash noted. Neurologic: Alert, awake, oriented x3. No acute focal deficits appreciated. Investigations: BUN 43, creatinine 4.37. Assessment/recommendation: 1.Atrial fibrillation, rate is controlled. Continue metoprolol and Eliquis. 2.Elevated NT-proBNP is likely due to renal failure, however, obtain echo to evaluate cardiac functi on. 3.Hypertension. Blood pressure is still elevated. He is on Procardia 90 mg twice a day and metopro lol. I recommend to switch metoprolol to Coreg at 6.25 mg twice a day that should allow better blood pressure control comparing to metoprolol. 4.End-stage renal disease and he is about start dialysis. Patient from the cardiac standpoint appea rs stable. We will sign off on the case. SR/MODL Voice ID: [id number] Report ID: [id number]
[2022-07-26] MEDS: DOCUSATE NA 100 MG CAP PO SCH (21:36)
[2022-07-27 05:58] LABS: Absolute Lymphocytes (CBC) 0.1 K/uL (0.7-4.9); Hematocrit 30.3 % (39.6-49.0); Lymphocytes % 2.3 % (15.3-44.8); MCV 88.4 fL (80-100); MPV 8.9 fL (7.6-11.3); RBC Red Blood Cell Count 3.43 M/uL (4.33-5.43)
[2022-07-27 05:59] LABS: RBC Red Blood Cell Count 3.46 M/uL (4.33-5.43)
[2022-07-27 06:04] LABS: Protime INR 0.89
[2022-07-27 06:15] LABS: Magnesium 2.3 mg/dL (1.6-2.4)
[2022-07-27 06:17] LABS: AST/SGOT 6 U/L (15-37); Albumin 2.5 g/dL (3.4-5.0); Alkaline Phosphatase 85 U/L (45-117); BUN Blood Urea Nitrogen 46 mg/dL (7-18); Bicarbonate 20 mmol/L (21-32); Bilirubin Total 0.4 mg/dL (0.2-1.0); Glomerular Filtration Rate 13 ml/min (=/>90); Glucose Level 140 mg/dL (74-106); Magnesium 2.2 mg/dL (1.6-2.4); Phosphorus 6.2 mg/dL (2.5-4.9); Potassium 5.3 mmol/L (3.5-5.1); Protein, Total 5.3 g/dL (6.4-8.2); Sodium Level 137 mmol/L (136-145)
[2022-07-27 06:21] LABS: ALT/SGPT < 10 U/L (16-61)
[2022-07-27] MEDS: METOPROLOL TAR 25 MG TAB PO SCH ×2 (06:31→17:05)
[2022-07-27 07:21] LABS: Hepatitis B Core Ab, Total Nonreactive (Nonreactive); Hepatitis B Surface Ab - Quant < 3.10 mIU/mL (<8.0); Hepatitis B surface AG Interp. Nonreactive (Nonreactive); Hepatitis C Virus Ab Nonreactive (Nonreactive)
[2022-07-27] MEDS: INSULIN -REGULAR HUMAN 50 UNIT/0.5 ML ML SQ SCH ×4 (07:30→21:00)
[2022-07-27] MEDS ORDERED: NS 0.9% VIAL 0 ML ONE (07:40)
[2022-07-27] MEDS ORDERED: NA CHLORIDE 0.9% 50 ML ONE (07:41)
[2022-07-27] MEDS ORDERED: BUPIVACAINE 0.25% PF 30 ML VIAL ONE (07:41)
[2022-07-27] MEDS ORDERED: BUPIVACAINE 0.5% PF 10 ML VIAL ONE (07:41)
[2022-07-27] MEDS ORDERED: HEPARIN 5000 UNIT/ML 1 ML VIAL ONE (07:41)
[2022-07-27] MEDS ORDERED: HEPARIN 500 UNIT/5 ML SYR IV ONE (07:42)
[2022-07-27] MEDS: SEVELAMER CARBONATE 800 MG TABLET PO SCH ×3 (08:00→17:06)
[2022-07-27] MEDS: ASPIRIN 81 MG CHEWABLE TABLET PO SCH (08:29)
[2022-07-27] MEDS: predniSONE 10 MG TAB PO SCH (08:29)
[2022-07-27] MEDS: DOCUSATE NA 100 MG CAP PO SCH ×2 (08:29→22:38)
[2022-07-27] MEDS: HEPARIN 5000 UNIT/ML 1 ML VIAL SQ SCH ×2 (08:30→21:00)
[2022-07-27] MEDS: MULTIVITAMINS,THERAPEUT 1 TAB PO SCH (08:31)
[2022-07-27] MEDS: MYCOPHENOLATE MOFETIL 500 MG PO SCH ×2 (08:31→22:39)
[2022-07-27] MEDS: ATORVASTATIN 10 MG TAB PO SCH (08:31)
[2022-07-27] MEDS: allopurinoL 100 MG TAB PO SCH (08:31)
[2022-07-27] MEDS: TACROLIMUS 1 MG PO SCH ×2 (08:31→22:38)
[2022-07-27] MEDS: ACYCLOVIR 400 MG TABLET PO SCH (08:31)
[2022-07-27] MEDS: NEPRO SHAKE 237 ML CAN PO SCH ×3 (08:31→21:00)
[2022-07-27 08:51] LABS: Anisocytosis SLIGHT; Blood Morphology Comment NOTED (NOT SEEN); Platelet Estimate ADEQ; Poikilocytosis SLIGHT; White Blood Cell Scan OK (OK)
--- NOTE | 2022-07-27 08:54 | RAD REPORT ---
EXAM DESCRIPTION: RAD - Chest Single View - 07/27/2022 5:21 am CLINICAL HISTORY: R/O TB and for placement of dialysis cath Chest pain. COMPARISON: Abdomen 1 View (KUB) dated 07/21/2022; Chest Single View dated 07/21/2022; CHEST PA AND LA T 2 VIEW dated 09/20/2007 FINDINGS: Portable technique limits examination quality. There is a significant airspace opacity involving the right lung with right pleural effusion. The hea rt is moderately enlarged. The left lung is grossly clear.Due to the degree of consolidated pattern o n the right, tuberculosis cannot be effectively excluded on this study.
[2022-07-27] MEDS: HYDRALAZINE HCL 25 MG TABLET PO SCH ×3 (09:13→22:38)
[2022-07-27] MEDS: levETIRAcetam 500 MG in NA CHLORIDE 0.9% 100 ML IV SCH ×2 (09:13→22:37)
[2022-07-27] MEDS: AZITHROMYCIN IV 500 MG in NA CHLORIDE 0.9% 250 ML IVPB SCH (09:14)
[2022-07-27] MEDS: CEFTRIAXONE 1,000 MG in NA CHLORIDE 0.9% 50 ML IVPB SCH (09:14)
[2022-07-27] MEDS ORDERED: NA CHLORIDE 0.9% 1,000 ML ONE ×2 (10:12→10:13)
[2022-07-27] MEDS ORDERED: propofoL 200 MG/20 ML VIAL IV ONE (10:40)
[2022-07-27] MEDS ORDERED: FENTANYL CITR 100 MCG/2 ML ONE (10:40)
[2022-07-27] MEDS ORDERED: dexAMETHasone 10 MG/ML VIAL ONE (10:40)
[2022-07-27] MEDS ORDERED: MIDAZOLAM HCL 2 MG/2 ML INJ ONE (10:40)
[2022-07-27] MEDS ORDERED: LIDOCAINE 2% MPF 5 ML VIAL ONE (10:41)
[2022-07-27] MEDS ORDERED: ONDANSETRON 4 MG/2 ML VIAL ONE (10:41)
[2022-07-27] MEDS ORDERED: ROCURONIUM 50 MG/5 ML VIAL IV ONE ×2 (10:41→12:05)
[2022-07-27] MEDS ORDERED: NS 0.9% VIAL 20 ML ONE (11:16)
[2022-07-27] MEDS ORDERED: EPHEDRINE SULF 50 MG/ML VIAL ONE (11:32)
[2022-07-27] MEDS ORDERED: SUGAMMADEX SODIUM 200 MG/2 ML VIAL IV ONE (12:06)
--- NOTE | 2022-07-27 12:30 | RAD REPORT ---
EXAM DESCRIPTION: RAD - Fluoroscopy <1 Hour - 07/27/2022 12:20 pm CLINICAL HISTORY: DIALYSIS CATH COMPARISON: None available. FINDINGS: Three Images were sent to PACS, documenting needle positions during an image guided dialys is catheter placement procedure. No radiologist was available for the procedure, nor will any image i nterpretation he provided. Please refer to the procedural report for additional details. Fluoroscopy time: 32.7 seconds IMPRESSION: Documentation of fluoroscopy utilization as above.
--- NOTE | 2022-07-27 12:39 | P.OP ---
Preoperative diagnosis: Need for Dialysis Postoperative diagnosis: Need for Dialysis Primary procedure: Placement of RIGHT internal jugular Tunnelled HD catheter Secondary procedure: flouroscopic and ultrasound guidance Other procedure(s): Laparoscopic placement of Tunnelled Peritoneal Dialysis Catheter Anesthesia: GETA + Local Estimated blood loss: <10cc Specimen: none Findings: flouoscopy confirmed position, 950cc returned of 1 liter of saline Complications: None Implants: Russell Double cuffed PD catheter, 19cm Hemosplit catheter Transferred to: Recovery Room Condition: Good
--- NOTE | 2022-07-27 13:43 | RAD REPORT ---
EXAM DESCRIPTION: RADChest Single View07/27/2022 1:28 pm CLINICAL HISTORY: S/P TUNNELED HD CATH INSERTION COMPARISON: Chest Single View dated 07/27/2022; Abdomen 1 View (KUB) dated 07/21/2022; Chest Single Vi ew dated 07/21/2022; CHEST PA AND LAT 2 VIEW dated 09/20/2007 TECHNIQUE: Portable AP view of the chest. FINDINGS: Right perihilar and basal airspace opacification, with a layering effusion that has slight ly improved since the prior exam. No pneumothorax. Right IJ dialysis catheter has been placed, with t ip present at the level of the superior cavoatrial junction. Left lung remains clear apart from mild prominence of the central vascular markings. No pneumothorax. The cardiomediastinal contours are unre markable. IMPRESSION: Right IJ dialysis catheter as above. Stable right perihilar/ basilar opacification, which could reflect atelectasis or airspace disease. A component of underlying edema cannot be entirely excluded. Improving right pleural effusion.
--- NOTE | 2022-07-27 14:41 | OP ---
Date of Procedure: 07/27/2022 Surgeon: Robson Fischer MD, Preoperative Diagnosis: Need for dialysis. Postoperative Diagnosis: Need for dialysis. Procedures Performed: 1. Placement of right internal jugular tunneled hemodialysis catheter using ultrasound and fluoroscopic guidance. 2. Laparoscopic placement of peritoneal tunneled dialysis catheter. Anesthesia: General endotracheal local with 0.25% Marcaine. Estimated Blood Loss: Less than 2 cc. Specimen: None. Findings: Fluoroscopy confirmed position and 950 cc of 1 L of peritoneal fluid returned. Complications: None. Implants: 1. Merit double-cuffed peritoneal dialysis catheter. 2. A 19 cm HemoSplit catheter. Disposition: The patient was transferred to the recovery room good condition. Procedure In Detail: After informed consent was obtained, the patient was brought to the operating room, prepped and draped in the usual sterile fashion after adequate anesthesia was achieved. The patient was placed in steep Trendelenburg position and under ultrasound guidance, I cannulated the right internal jugular vein on the first attempt using a microintroducer set. I then advanced a microwire into the internal jugular and into the confluence of the superior vena cava. At this point, a small moi incision was made overlying the insertion site. An introducer sheath was placed, which was 5-German. At this point, the inner microwire was removed after confirmation of position using fluoroscopic. At this point, the standard wire was advanced and under fluoroscopic guidance confirmed position of the SVC once again. The introducer sheath remained in place at this point. I then anesthetized the tract on the chest wall and tunneling the catheter brought out through the insertion site after a stab incision was made. I then introduced the cuff into the midportion in the infraclavicular position. I then performed sequential dilatation using Seldinger technique and fluoroscopic guidance over the wire, into the internal jugular and inserted the catheter without evidence of complication. It was found to be at the confluence of the SVC. At this point, the wire was removed and the catheter was advanced after the introducer sheath was placed. Fluoroscopy confirmed the position of the catheter. I then flushed and saeid back dark red nonpulsatile blood quite easily, flushed with saline until completely clear, and then added heparin super flush at this point. Position was then confirmed once again with fluoroscopy in the OR. At this point, I secured the catheter to the chest wall and sterile dressing placed over top. I then turned my attention to the peritoneal aspect. The patient remained prepped and draped in the usual sterile fashion. I made a left upper quadrant incision and inserted a 5 mm 0-degree optical trocar in the abdomen without evidence of complication. Insufflation was obtained to 15 mmHg at this time. There was no injury to vital structure upon entry into the abdomen. I then had pre-stenciled the patient from placement of Merit double-cuffed peritoneal dialysis catheter. I made an incision overlying the pre-stencil portion and inserted the introducer sheath at a 45-degree angle and placed toward the patient's Coccyx. I then performed a dilation of the sheath and advanced the catheter using the introducer sheath into the true pelvis and it was in good position at this point with the cuff placed in the rectus sheath at this point. The inner cannula was removed and the sheath was completely withdrawn at this point. I tested and the catheter flushed quite easily. The radiopaque stripe remained posterior with a gentle curve of the catheter in the true pelvis. I then attached the catheter passer and following the pre-stencil mahi, I anesthetized the tract and brought the catheter out through a left upper side demarcation. At this point, the catheter was brought out and was functioning quite well. I hooked up the cap at the endpoint at this point and infused 1 L of saline and after de-sufflating the abdomen, 950 cc of fluid was returned quite easily at this point. I then re- insufflated the abdomen, inspected the area 1 last time. Additional trocar was placed in the right upper quadrant to help with the catheter positioned to keep in the true pelvis prior to infusion of saline and it was found to be in good position at this point. I then removed the trocar under direct vision, desufflated the abdomen under direct visualization without evidence of complication. All skin edges were then copiously irrigated and closed with a 4- 0 Monocryl in a running fashion. Dermabond placed over top. The patient tolerated the procedure well without evidence of complication and transferred to PACU in good condition. All counts were correct at the end of the case. SERAFIN/KAREN Voice ID: [id number] Report ID: [id number]
[2022-07-27] MEDS: FENTANYL CITR 100 MCG/2 ML IV PRN (17:52)
--- NOTE | 2022-07-27 17:56 | P.PN ---
Subjective Date of Service: 07/26/22 Chart has been reviewed. Events of the last 24 hours have been noted. Patient was scheduled to get dialysis access catheter but he had eaten because his sugars were low. Patient has a renal transplant that has failed. Spoke to his physicians at [facility] and they concurred with dialysis. We will continue with hemodialysis and will have patient follow-up as an outpatient. Review of Systems 10-point ROS is otherwise unremarkable Physical Examination - Vital Signs Temperature: 97.0 F Blood Pressure: 143/68 Pulse: 80 Respirations: 16 Pulse Ox (%): 97 - Physical Exam General: Alert, In no apparent distress, Oriented x3 HEENT: Atraumatic, PERRLA, EOMI Neck: Supple, JVD not distended Respiratory: Clear to auscultation bilaterally, Normal air movement Cardiovascular: Regular rate/rhythm, Normal S1 S2 Gastrointestinal: Normal bowel sounds, Soft and benign, Non-distended, No tenderness Musculoskeletal: No clubbing, No swelling, No tenderness Neurological: Sensation intact, Cranial nerves 3-12 intact - Studies Medications List Reviewed: Yes Assessment & Plan - Problems (Diagnosis) (1) ESRD (end stage renal disease) Current Visit: Yes Status: Acute (2) S/P kidney transplant Current Visit: Yes Status: Acute (3) Anemia, chronic renal failure Current Visit: Yes Status: Acute (4) Hyperkalemia Current Visit: Yes Status: Acute - Plan Plan: 1. Hemodialysis per nephrology 2. Monitor blood sugars closely 3. Monitor potassium level 4. Strict blood pressure control 5. Continue with physical therapy 6. GI DVT prophylaxis Discharge Plan: Home Plan to discharge in: Greater than 2 days - Advance Directives Does patient have a Living Will: No Does patient have a Durable POA for Healthcare: No Physician Review: Patient Assessed, Agree with Above Assessment and Plan Critical Care: No Time Spent Managing PTS Care (In Minutes): 35
--- NOTE | 2022-07-27 17:57 | P.PN ---
Date of Service: 07/27/22 Subjective Patient scheduled for hemodialysis access catheter and peritoneal access catheter as well. Continue with hemodialysis and arrange for outpatient hemodialysis. Outpatient follow-up with transplant surgery. Review of Systems 10-point ROS is otherwise unremarkable Physical Examination - Vital Signs Reviewed - Physical Exam General: Alert, In no apparent distress, Oriented x3 Respiratory: Clear to auscultation bilaterally, Normal air movement Cardiovascular: Regular rate/rhythm, Normal S1 S2 Gastrointestinal: Normal bowel sounds, Soft and benign, Non-distended, No tenderness Musculoskeletal: No clubbing, No swelling, No tenderness Neurological: Sensation intact, Cranial nerves 3-12 intact Assessment & Plan - Problems (Diagnosis) (1) ESRD (end stage renal disease) Current Visit: Yes Status: Acute (2) S/P kidney transplant Current Visit: Yes Status: Acute (3) Anemia, chronic renal failure Current Visit: Yes Status: Acute (4) Hyperkalemia Current Visit: Yes Status: Acute - Plan Plan of care as mentioned below: 1. HD per nephrology 2. Monitor blood sugars closely 3. Monitor potassium level 4. Strict blood pressure control 5. Continue with physical therapy 6. Monitor volume status closely 7. Hgb stable 8. GI DVT prophylaxis
[2022-07-27] MEDS ORDERED: NA CHLORIDE 0.9% 1,000 ML IV PRN (18:03)
[2022-07-27] MEDS ORDERED: MANNITOL 25% 12.5 GM/50 ML VIAL IV PRN (18:03)
[2022-07-27] MEDS ORDERED: ALBUMIN HUMAN 25% 50 ML IV SCH (19:00)
--- NOTE | 2022-07-27 20:54 | P.PN ---
Date of Service: 07/27/22 Vital Signs Temp Pulse Resp BP Pulse Ox 97.0 F 80 16 143/68 H 97 07/27/22 17:55 07/27/22 17:55 07/27/22 17:55 07/27/22 17:55 07/27/22 17:55 Medications Acetaminophen (Acetaminophen 325 Mg Tablet) 650 mg PO Q6H PRN PRN Reason: TEMP > 100' F Last Admin: 07/25/22 09:34 Dose: 650 mg Acyclovir (Acyclovir 400 Mg Tablet) 200 mg PO DAILY [facility] Last Admin: 07/27/22 08:31 Dose: Not Given Albuterol Sulfate (Albuterol 2.5 Mg/3 Ml Neb Bebe) 2.5 mg NEB [id number] PRN PRN Reason: SHORTNESS OF BREATH Allopurinol (Allopurinol 100 Mg Tab) 200 mg PO DAILY [facility] Last Admin: 07/27/22 08:31 Dose: Not Given Aspirin (Aspirin 81 Mg Chewable Tablet) 81 mg PO DAILY [facility] Last Admin: 07/27/22 08:29 Dose: Not Given Atorvastatin Calcium (Atorvastatin 10 Mg Tab) 10 mg PO DAILY [facility] Last Admin: 07/27/22 08:31 Dose: Not Given Dextrose (D10w 250 Ml Bag) 125 ml IV PRN PRN; Protocol PRN Reason: HYPOGLYCEMIA Docusate Sodium (Docusate Na 100 Mg Cap) 100 mg PO BID [facility] Last Admin: 07/27/22 08:29 Dose: Not Given Enteral Nutritional Formula (Nepro Shake 237 Ml Can) 240 ml PO TID [facility] Last Admin: 07/27/22 15:26 Dose: 240 ml Epoetin David (Epoetin David 10,000 Unit/Ml Vial) 10,000 unit SQ MoWeFr@1700 [facility] Last Admin: 07/26/22 10:57 Dose: 10,000 unit Ergocalciferol (Drisdol (Vitamin D=Ergocalciferol) 54268 Unit Cap) 50,000 unit PO Q7D@0900 [facility] Last Admin: 07/25/22 12:56 Dose: 50,000 unit Fentanyl Citrate (Fentanyl Citr 100 Mcg/2 Ml) 25 mcg IV Q8H PRN PRN Reason: Pain scale 8-10 (Severe) Last Admin: 07/27/22 17:52 Dose: 25 mcg Glucagon (Glucagon 1 Mg/Vial) 1 mg IM 1X PRN PRN Reason: HYPOGLYCEMIA Heparin Sodium (Porcine) (Heparin 5000 Unit/Ml 1 Ml Vial) 5,000 unit SQ Q12HR [facility] Last Admin: 07/27/22 08:30 Dose: Not Given Heparin Sodium (Porcine) (Heparin 1,000 Unit/Ml Vial) 4,000 unit IV EVERY HD PRN PRN Reason: FOR DIALYSIS CATHETER CARE Heparin Sodium (Porcine) (Heparin 1,000 Unit/Ml Vial) 6,000 unit IV EVERY HD PRN PRN Reason: AFTER EACH Home Med (Mycophenolate Mofetil [Cellcept]) 250 mg PO BID [facility] Last Admin: 07/27/22 08:31 Dose: Not Given Home Med (Tacrolimus [Tacrolimus]) 2 mg PO BID [facility] Last Admin: 07/27/22 08:31 Dose: Not Given Hydralazine HCl (Hydralazine Hcl 20 Mg/Ml Vial) 5 mg IV Q6HP PRN PRN Reason: SBP > 160 - IF LABETALOL INEFF Last Admin: 07/26/22 03:50 Dose: 5 mg Hydralazine HCl (Hydralazine Hcl 25 Mg Tablet) 25 mg PO TID [facility] Last Admin: 07/27/22 15:26 Dose: 25 mg Azithromycin 500 mg/ Sodium (Chloride) 250 mls @ 250 mls/hr IVPB DAILY [facility]; Protocol Last Admin: 07/27/22 09:14 Dose: 250 mls Ceftriaxone Sodium 1,000 mg/ (Sodium Chloride) 50 mls @ 100 mls/hr IVPB DAILY [facility]; Protocol Last Admin: 07/27/22 09:14 Dose: 50 mls Levetiracetam 500 mg/ Sodium (Chloride) 105 mls @ 420 mls/hr IV BID [facility] Last Admin: 07/27/22 09:13 Dose: 105 mls Sodium Chloride (Ns 1000 Ml Ivbag) 1,000 mls @ 0 mls/hr IV .Q0M PRN; Protocol PRN Reason: Priming and BP support at HD Stop: 07/27/22 23:59 Albumin Human (Albumin 25%) 50 mls @ 100 mls/hr IV EVERY HD [facility] Insulin Human Regular (Insulin -Regular Human 50 Unit/0.5 Ml Ml) 0 unit SQ ACHS [facility]; Protocol Last Admin: 07/27/22 15:26 Dose: Not Given Ipratropium [place] (Ipratropium Brom 0.5mg/2.5ml) 0.5 mg NEB [id number] PRN PRN Reason: SHORTNESS OF BREATH Mannitol (Mannitol 25% 12.5 Gm/50 Ml Vial) 12.5 gm IV EVERY HD PRN PRN Reason: PRN FOR BP SUPPORT AT HD Metoprolol Tartrate (Metoprolol Tar 25 Mg Tab) 25 mg PO BID 6AM 6PM [facility] Last Admin: 07/27/22 17:05 Dose: 25 mg Nifedipine (Nifedipine Xl 90 Mg Tablet) 90 mg PO BID [facility] Ondansetron HCl (Ondansetron 4 Mg/2 Ml Vial) 4 mg IV Q6HP PRN PRN Reason: NAUSEA / VOMITING Last Admin: 07/26/22 03:30 Dose: 4 mg Pantoprazole Sodium (Pantoprazole 40mg Tablet) 40 mg PO DAILYAC [facility] Last Admin: 07/26/22 10:16 Dose: 40 mg Prednisone (Prednisone 10 Mg Tab) 10 mg PO DAILY [facility] Last Admin: 07/27/22 08:29 Dose: Not Given Sevelamer Carbonate (Sevelamer Carbonate 800 Mg Tablet) 800 mg PO TIDWM [facility] Last Admin: 07/27/22 17:06 Dose: 800 mg Sodium Chloride (Flush Normal Saline 10 Ml) 10 ml IV BID [facility] Last Admin: 07/27/22 09:15 Dose: 10 ml Vitamin B Complex/Vit C/Folic Acid (Multivitamins,Therapeut 1 Tab) 1 tab PO DAILY [facility] Last Admin: 07/27/22 08:31 Dose: Not Given Assessment/ Plan: Nephrology No dyspnea No chest pain No acute events overnight Vitals, medications, blood work and imaging reviewed in the chart. General: In no apparent distress, Cooperative HEENT: Atraumatic Neck: Supple Respiratory: Clear to auscultation bilaterally Cardiovascular: No edema, Regular rate/rhythm Gastrointestinal: Soft and benign, Non-distended Musculoskeletal: No clubbing, No contractures Integumentary: No rashes, No cyanosis Neurological: Abnormal speech, Abnormal affect Laboratory Data (last 24 hrs) 07/20/22 09:10: Phosphorus 4.0, Magnesium 2.1 07/20/22 09:10: Sodium 137, Potassium 5.1, BUN 47 H, Creatinine 3.31 H, Glucose 131 H, Total Bilirubin 0.7, AST 10 L, ALT 11 L, Alkaline Phosphatase 111, Lipase 43 L 07/20/22 09:10: WBC 9.10, Hgb 11.0 L, Hct 33.8 L, Plt Count 257 Imagings Data: EXAM DESCRIPTION: CT - Head Brain Wo Cont - 07/20/2022 3:14 pm CLINICAL HISTORY: AMS Fall, trauma, head injury COMPARISON: No comparisons TECHNIQUE: All CT scans are performed using dose optimization technique as appropriate and may include automated exposure control or mA/KV adjustment according to patient size. FINDINGS: No intracranial hemorrhage, hydrocephalus or extra-axial fluid collection.Mild brain atrophy is present.No areas of brain edema or evidence of midline shift. Vertebral atherosclerosis. The paranasal sinuses and mastoids are clear. The calvarium is intact. IMPRESSION: No acute intracranial abnormality. EXAM DESCRIPTION: CTChest Abd Pelvis Wo Con - 07/20/2022 10:02 am CLINICAL HISTORY: fall, rib pain, back pain COMPARISON: CT CHEST ABD PELVIS WO CONT dated 09/20/2007 TECHNIQUE: CT of the chest, abdomen, and pelvis was performed. All CT scans are performed using dose optimization technique as appropriate and may include automated exposure control or mA/KV adjustment according to patient size. FINDINGS: Thorax: Chest Wall: No abnormal mass Lungs: Nodular airspace disease in the superior segment of the left lower lobe. Likely atelectasis as a result of the fusion. Pleura: Small to moderate right pleural effusion. Kari/Mediastinum: No lymphadenopathy. Aorta/Pulmonary Arteries: Unremarkable Heart: Normal size. Multi-vessel coronary artery disease. Small pericardial effusion. Abdomen/Pelvis: Liver: No acute abnormality or suspicious lesions. Biliary: Cholelithiasis. Distended gallbladder. Stomach: No significant focal abnormality. Duodenum: No significant focal abnormality. Pancreas: No significant abnormality. Spleen: No significant abnormality. Adrenal: No suspicious lesions. Kidney/ureter: No hydronephrosis. No renal calculi. Atrophic robinson kidneys. Right upper pole renal lesion which is likely a cyst. Right iliac fossa renal transplant. No hydronephrosis. Retroperitoneum: No retroperitoneal adenopathy. Vascular: No aneurysm. Advanced atherosclerosis. Bowel: Liquid contents within the rectum.. Peritoneum: No ascites or free air. Bladder: Grossly unremarkable. Reproductive: No masses identified. Bones: No acute fracture. Other: n/a IMPRESSION: 1. No evidence of significant trauma to the chest abdomen, or pelvis. 2. Small to moderate right pleural effusion and likely underlying atelectasis. Very mild nodularity in the superior segment of the left lower lobe could reflect mild pneumonia or pneumonitis. 3. Distended gallbladder with cholelithiasis but no definite evidence of acute cholecystitis. Could correlate with LFTs. Conclusions/Impression: CKD V with proteinuria/ ESRD Renal Transplant 2008 -No NSAIDs -Continue Tacrolimus and Mycophenolate -Continue Prednisone 10mg daily -CVC placed today -HD initiated 07-27-22 due to ESRD Hyperkalemia -Renal diet -Acute HD HTN with CKD -Hydralazine IV prn -Continue Nifedipine ER 90mg BID -Continue Hydralazine DM II with CKD -RISS Moderate malnutrition with debility and anorexia -Continue Nepro -Continue MVI -PT as tolerated Anemia in chronic illness -Monitor H&H -Retacrit MWF Toxic Metabolic Encephalopathy suspicious for PRES -CT Head negative for acute change -Brain MRI reviewed CAD PAD/ Atherosclerosis of aorta Paroxysmal Afib complicated by bradycardia -Cardiology prn
[2022-07-27] MEDS: NIFEDIPINE XL 90 MG TABLET PO SCH (22:40)
[2022-07-27] MEDS ORDERED: HYDROCODONE/APAP 7.5/325 MG TAB PO ONE (22:47)
[2022-07-28] MEDS: FENTANYL CITR 100 MCG/2 ML IV PRN ×2 (03:02→21:34)
[2022-07-28 05:36] LABS: Absolute Lymphocytes (CBC) 0.4 K/uL (0.7-4.9); Hematocrit 29.7 % (39.6-49.0); Lymphocytes % 7.2 % (15.3-44.8); MCV 88.6 fL (80-100); MPV 8.6 fL (7.6-11.3); RBC Red Blood Cell Count 3.35 M/uL (4.33-5.43)
[2022-07-28 05:51] LABS: ALT/SGPT < 10 U/L (16-61); AST/SGOT 6 U/L (15-37); Albumin 2.1 g/dL (3.4-5.0); Alkaline Phosphatase 75 U/L (45-117); BUN Blood Urea Nitrogen 33 mg/dL (7-18); Bicarbonate 26 mmol/L (21-32); Bilirubin Total 0.2 mg/dL (0.2-1.0); Glomerular Filtration Rate 16 ml/min (=/>90); Glucose Level 113 mg/dL (74-106); Potassium 4.4 mmol/L (3.5-5.1); Protein, Total 4.5 g/dL (6.4-8.2); Sodium Level 138 mmol/L (136-145)
[2022-07-28] MEDS: METOPROLOL TAR 25 MG TAB PO SCH ×2 (06:45→17:49)
[2022-07-28] MEDS: PANTOPRAZOLE 40MG TABLET PO SCH (06:45)
[2022-07-28] MEDS: INSULIN -REGULAR HUMAN 50 UNIT/0.5 ML ML SQ SCH ×4 (07:30→21:00)
[2022-07-28] MEDS: ATORVASTATIN 10 MG TAB PO SCH (10:03)
[2022-07-28] MEDS: allopurinoL 100 MG TAB PO SCH (10:03)
[2022-07-28] MEDS: ASPIRIN 81 MG CHEWABLE TABLET PO SCH (10:04)
[2022-07-28] MEDS: SEVELAMER CARBONATE 800 MG TABLET PO SCH ×3 (10:04→17:49)
[2022-07-28] MEDS: MULTIVITAMINS,THERAPEUT 1 TAB PO SCH (10:04)
[2022-07-28] MEDS: HYDRALAZINE HCL 25 MG TABLET PO SCH ×3 (10:04→21:00)
[2022-07-28] MEDS: DOCUSATE NA 100 MG CAP PO SCH ×2 (10:04→21:52)
[2022-07-28] MEDS: NIFEDIPINE XL 90 MG TABLET PO SCH ×2 (10:04→21:51)
[2022-07-28] MEDS: predniSONE 10 MG TAB PO SCH (10:04)
[2022-07-28] MEDS: AZITHROMYCIN IV 500 MG in NA CHLORIDE 0.9% 250 ML IVPB SCH (10:05)
[2022-07-28] MEDS: CEFTRIAXONE 1,000 MG in NA CHLORIDE 0.9% 50 ML IVPB SCH (10:05)
[2022-07-28] MEDS: ACYCLOVIR 400 MG TABLET PO SCH (10:05)
[2022-07-28] MEDS: levETIRAcetam 500 MG in NA CHLORIDE 0.9% 100 ML IV SCH ×2 (10:06→21:52)
[2022-07-28] MEDS: HEPARIN 5000 UNIT/ML 1 ML VIAL SQ SCH ×2 (10:10→21:52)
[2022-07-28] MEDS: TACROLIMUS 1 MG PO SCH ×2 (10:11→21:53)
[2022-07-28] MEDS: MYCOPHENOLATE MOFETIL 500 MG PO SCH ×2 (10:11→21:53)
[2022-07-28] MEDS: NEPRO SHAKE 237 ML CAN PO SCH ×3 (10:12→21:00)
--- NOTE | 2022-07-28 10:45 | P.PN ---
Nephrology note (S) Pt reports tolerating initiation of dialysis, reports fatigue but no dyspnea or abd pain or nausea. Is passing gas, reports having a BM. (O) Vitals reviewed in the EMR General: NAD HEENT: Atraumatic, sclera anicteric,off NC Neck: Supple, RT IJ TDC Respiratory: b/l air entry on anterior auscultation, no rhonchi Cardiovascular: No edema, Regular rate/rhythm Gastrointestinal: Soft and benign, Non-distended, PD catheter with dressing in LLQ Musculoskeletal: Muscle mass loss Integumentary: No rashes Neurological: Awake, alert, interactive, non focal Laboratory Data (last 24 hrs) Reviewed in the EMR Conclusions/Impression: Hx of kidney transplant remotely [facility] on underlying transplant CKD IV, otherwise progressive it appears since 2014 (prior labs in the EMR) Significant proteinuria/macroalbuminuria noted on spot urine testing 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 Initiated dialysis in the setting of his low GFR state and hyperkalemia/acidosis over the weekend, repeat HD today. 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 Will gradually lower BP as he did have hypotensive episode last week AMS. Seizure unspecified Likely related to hypertensive PRES encephalopathy, improved, caution with any INFORMATICS PHYSICIAN LIAISON acting meds Hyperkalemia Resolved post HD Hiram Oneil MD, JOSE
[2022-07-28] MEDS: EPOETIN ALFA 10,000 UNIT/ML VIAL SQ SCH (17:50)
[2022-07-28] MEDS: ONDANSETRON 4 MG/2 ML VIAL IV PRN (21:35)
[2022-07-29] MEDS: METOPROLOL TAR 25 MG TAB PO SCH ×2 (06:00→16:57)
[2022-07-29 06:30] LABS: Absolute Lymphocytes (CBC) 0.2 K/uL (0.7-4.9); Hematocrit 28.9 % (39.6-49.0); Lymphocytes % 2.8 % (15.3-44.8); MCV 88.9 fL (80-100); MPV 9.1 fL (7.6-11.3); RBC Red Blood Cell Count 3.25 M/uL (4.33-5.43)
[2022-07-29] MEDS: PANTOPRAZOLE 40MG TABLET PO SCH (06:44)
[2022-07-29 06:50] LABS: AST/SGOT 9 U/L (15-37); Albumin 2.1 g/dL (3.4-5.0); Alkaline Phosphatase 73 U/L (45-117); BUN Blood Urea Nitrogen 23 mg/dL (7-18); Bicarbonate 24 mmol/L (21-32); Bilirubin Total 0.3 mg/dL (0.2-1.0); Glomerular Filtration Rate 20 ml/min (=/>90); Glucose Level 198 mg/dL (74-106); Potassium 4.3 mmol/L (3.5-5.1); Protein, Total 4.6 g/dL (6.4-8.2); Sodium Level 136 mmol/L (136-145)
[2022-07-29 06:52] LABS: ALT/SGPT < 10 U/L (16-61)
[2022-07-29] MEDS: INSULIN -REGULAR HUMAN 50 UNIT/0.5 ML ML SQ SCH ×4 (07:30→21:00)
[2022-07-29] MEDS: TACROLIMUS 1 MG PO SCH ×2 (09:00→21:00)
[2022-07-29] MEDS: HYDRALAZINE HCL 25 MG TABLET PO SCH ×2 (09:00→13:52)
[2022-07-29] MEDS: CEFTRIAXONE 1,000 MG in NA CHLORIDE 0.9% 50 ML IVPB SCH (09:28)
[2022-07-29] MEDS: AZITHROMYCIN IV 500 MG in NA CHLORIDE 0.9% 250 ML IVPB SCH (09:28)
[2022-07-29] MEDS: levETIRAcetam 500 MG in NA CHLORIDE 0.9% 100 ML IV SCH ×2 (09:28→22:00)
[2022-07-29] MEDS: MYCOPHENOLATE MOFETIL 500 MG PO SCH ×2 (09:29→22:00)
[2022-07-29] MEDS: ATORVASTATIN 10 MG TAB PO SCH (09:31)
[2022-07-29] MEDS: ACYCLOVIR 400 MG TABLET PO SCH (09:31)
[2022-07-29] MEDS: DOCUSATE NA 100 MG CAP PO SCH ×2 (09:31→22:01)
[2022-07-29] MEDS: predniSONE 10 MG TAB PO SCH (09:31)
[2022-07-29] MEDS: SEVELAMER CARBONATE 800 MG TABLET PO SCH ×3 (09:31→16:57)
[2022-07-29] MEDS: MULTIVITAMINS,THERAPEUT 1 TAB PO SCH (09:32)
[2022-07-29] MEDS: allopurinoL 100 MG TAB PO SCH (09:32)
[2022-07-29] MEDS: NIFEDIPINE XL 90 MG TABLET PO SCH ×2 (09:32→21:00)
[2022-07-29] MEDS: ASPIRIN 81 MG CHEWABLE TABLET PO SCH (09:32)
[2022-07-29] MEDS: HEPARIN 5000 UNIT/ML 1 ML VIAL SQ SCH ×2 (09:32→22:00)
[2022-07-29] MEDS: NEPRO SHAKE 237 ML CAN PO SCH ×3 (09:33→21:00)
--- NOTE | 2022-07-29 20:33 | P.PN ---
Date of Service: 07/29/22 Vital Signs Temp Pulse Resp BP Pulse Ox 97.6 F 72 16 121/66 98 07/29/22 16:00 07/29/22 16:57 07/29/22 16:00 07/29/22 16:57 07/29/22 16:00 Medications Acetaminophen (Acetaminophen 325 Mg Tablet) 650 mg PO Q6H PRN PRN Reason: TEMP > 100' F Last Admin: 07/25/22 09:34 Dose: 650 mg Acyclovir (Acyclovir 400 Mg Tablet) 200 mg PO DAILY [facility] Last Admin: 07/29/22 09:31 Dose: 200 mg Albuterol Sulfate (Albuterol 2.5 Mg/3 Ml Neb Bebe) 2.5 mg NEB [id number] PRN PRN Reason: SHORTNESS OF BREATH Allopurinol (Allopurinol 100 Mg Tab) 200 mg PO DAILY [facility] Last Admin: 07/29/22 09:32 Dose: 200 mg Aspirin (Aspirin 81 Mg Chewable Tablet) 81 mg PO DAILY [facility] Last Admin: 07/29/22 09:32 Dose: 81 mg Atorvastatin Calcium (Atorvastatin 10 Mg Tab) 10 mg PO DAILY [facility] Last Admin: 07/29/22 09:31 Dose: 10 mg Dextrose (D10w 250 Ml Bag) 125 ml IV PRN PRN; Protocol PRN Reason: HYPOGLYCEMIA Docusate Sodium (Docusate Na 100 Mg Cap) 100 mg PO BID [facility] Last Admin: 07/29/22 09:31 Dose: 100 mg Enteral Nutritional Formula (Nepro Shake 237 Ml Can) 240 ml PO TID [facility] Last Admin: 07/29/22 13:52 Dose: Not Given Epoetin David (Epoetin David 10,000 Unit/Ml Vial) 10,000 unit SQ MoWeFr@1700 [facility] Last Admin: 07/28/22 17:50 Dose: 10,000 unit Ergocalciferol (Drisdol (Vitamin D=Ergocalciferol) 88093 Unit Cap) 50,000 unit PO Q7D@0900 [facility] Last Admin: 07/25/22 12:56 Dose: 50,000 unit Fentanyl Citrate (Fentanyl Citr 100 Mcg/2 Ml) 25 mcg IV Q8H PRN PRN Reason: Pain scale 8-10 (Severe) Last Admin: 07/28/22 21:34 Dose: 25 mcg Glucagon (Glucagon 1 Mg/Vial) 1 mg IM 1X PRN PRN Reason: HYPOGLYCEMIA Heparin Sodium (Porcine) (Heparin 5000 Unit/Ml 1 Ml Vial) 5,000 unit SQ Q12HR [facility] Last Admin: 07/29/22 09:32 Dose: 5,000 unit Heparin Sodium (Porcine) (Heparin 1,000 Unit/Ml Vial) 4,000 unit IV EVERY HD PRN PRN Reason: FOR DIALYSIS CATHETER CARE Last Admin: 07/27/22 22:02 Dose: 4,000 unit Heparin Sodium (Porcine) (Heparin 1,000 Unit/Ml Vial) 6,000 unit IV EVERY HD PRN PRN Reason: AFTER EACH Home Med (Mycophenolate Mofetil [Cellcept]) 250 mg PO BID [facility] Last Admin: 07/29/22 09:29 Dose: 250 mg Home Med (Tacrolimus [Tacrolimus]) 2 mg PO BID [facility] Last Admin: 07/29/22 09:00 Dose: 2 mg Hydralazine HCl (Hydralazine Hcl 20 Mg/Ml Vial) 5 mg IV Q6HP PRN PRN Reason: SBP > 160 - IF LABETALOL INEFF Last Admin: 07/26/22 03:50 Dose: 5 mg Azithromycin 500 mg/ Sodium (Chloride) 250 mls @ 250 mls/hr IVPB DAILY [facility]; Protocol Last Admin: 07/29/22 09:28 Dose: 250 mls Ceftriaxone Sodium 1,000 mg/ (Sodium Chloride) 50 mls @ 100 mls/hr IVPB DAILY [facility]; Protocol Last Admin: 07/29/22 09:28 Dose: 50 mls Levetiracetam 500 mg/ Sodium (Chloride) 105 mls @ 420 mls/hr IV BID [facility] Last Admin: 07/29/22 09:28 Dose: 105 mls Albumin Human (Albumin 25%) 50 mls @ 100 mls/hr IV EVERY HD [facility] Insulin Human Regular (Insulin -Regular Human 50 Unit/0.5 Ml Ml) 0 unit SQ ACHS [facility]; Protocol Last Admin: 07/29/22 16:30 Dose: Not Given Ipratropium [place] (Ipratropium Brom 0.5mg/2.5ml) 0.5 mg NEB [id number] PRN PRN Reason: SHORTNESS OF BREATH Mannitol (Mannitol 25% 12.5 Gm/50 Ml Vial) 12.5 gm IV EVERY HD PRN PRN Reason: PRN FOR BP SUPPORT AT HD Metoprolol Tartrate (Metoprolol Tar 25 Mg Tab) 25 mg PO BID 6AM 6PM [facility] Last Admin: 07/29/22 16:57 Dose: 25 mg Nifedipine (Nifedipine Xl 90 Mg Tablet) 90 mg PO BID [facility] Last Admin: 07/29/22 09:32 Dose: 90 mg Ondansetron HCl (Ondansetron 4 Mg/2 Ml Vial) 4 mg IV Q6HP PRN PRN Reason: NAUSEA / VOMITING Last Admin: 07/28/22 21:35 Dose: 4 mg Pantoprazole Sodium (Pantoprazole 40mg Tablet) 40 mg PO DAILYAC [facility] Last Admin: 07/29/22 06:44 Dose: 40 mg Prednisone (Prednisone 10 Mg Tab) 10 mg PO DAILY [facility] Last Admin: 07/29/22 09:31 Dose: 10 mg Sevelamer Carbonate (Sevelamer Carbonate 800 Mg Tablet) 800 mg PO TIDWM [facility] Last Admin: 07/29/22 16:57 Dose: 800 mg Sodium Chloride (Flush Normal Saline 10 Ml) 10 ml IV BID [facility] Last Admin: 07/29/22 09:00 Dose: 10 ml Vitamin B Complex/Vit C/Folic Acid (Multivitamins,Therapeut 1 Tab) 1 tab PO DAILY [facility] Last Admin: 07/29/22 09:32 Dose: 1 tab Assessment/ Plan: Nephrology No dyspnea No chest pain Fatigue and weakness No acute events overnight Vitals, medications, blood work and imaging reviewed in the chart. General: In no apparent distress, Cooperative HEENT: Atraumatic Neck: Supple Respiratory: Clear to auscultation bilaterally Cardiovascular: No edema, Regular rate/rhythm Gastrointestinal: Soft and benign, Non-distended Musculoskeletal: No clubbing, No contractures Integumentary: No rashes, No cyanosis Neurological: Abnormal speech, Abnormal affect Laboratory Data (last 24 hrs) 07/20/22 09:10: Phosphorus 4.0, Magnesium 2.1 07/20/22 09:10: Sodium 137, Potassium 5.1, BUN 47 H, Creatinine 3.31 H, Glucose 131 H, Total Bilirubin 0.7, AST 10 L, ALT 11 L, Alkaline Phosphatase 111, Lipase 43 L 07/20/22 09:10: WBC 9.10, Hgb 11.0 L, Hct 33.8 L, Plt Count 257 Imagings Data: EXAM DESCRIPTION: CT - Head Brain Wo Cont - 07/20/2022 3:14 pm CLINICAL HISTORY: AMS Fall, trauma, head injury COMPARISON: No comparisons TECHNIQUE: All CT scans are performed using dose optimization technique as appropriate and may include automated exposure control or mA/KV adjustment according to patient size. FINDINGS: No intracranial hemorrhage, hydrocephalus or extra-axial fluid collection.Mild brain atrophy is present.No areas of brain edema or evidence of midline shift. Vertebral atherosclerosis. The paranasal sinuses and mastoids are clear. The calvarium is intact. IMPRESSION: No acute intracranial abnormality. EXAM DESCRIPTION: CTChest Abd Pelvis Wo Con - 07/20/2022 10:02 am CLINICAL HISTORY: fall, rib pain, back pain COMPARISON: CT CHEST ABD PELVIS WO CONT dated 09/20/2007 TECHNIQUE: CT of the chest, abdomen, and pelvis was performed. All CT scans are performed using dose optimization technique as appropriate and may include automated exposure control or mA/KV adjustment according to patient size. FINDINGS: Thorax: Chest Wall: No abnormal mass Lungs: Nodular airspace disease in the superior segment of the left lower lobe. Likely atelectasis as a result of the fusion. Pleura: Small to moderate right pleural effusion. Kari/Mediastinum: No lymphadenopathy. Aorta/Pulmonary Arteries: Unremarkable Heart: Normal size. Multi-vessel coronary artery disease. Small pericardial effusion. Abdomen/Pelvis: Liver: No acute abnormality or suspicious lesions. Biliary: Cholelithiasis. Distended gallbladder. Stomach: No significant focal abnormality. Duodenum: No significant focal abnormality. Pancreas: No significant abnormality. Spleen: No significant abnormality. Adrenal: No suspicious lesions. Kidney/ureter: No hydronephrosis. No renal calculi. Atrophic [place] kidneys. Right upper pole renal lesion which is likely a cyst. Right iliac fossa renal transplant. No hydronephrosis. Retroperitoneum: No retroperitoneal adenopathy. Vascular: No aneurysm. Advanced atherosclerosis. Bowel: Liquid contents within the rectum.. Peritoneum: No ascites or free air. Bladder: Grossly unremarkable. Reproductive: No masses identified. Bones: No acute fracture. Other: n/a IMPRESSION: 1. No evidence of significant trauma to the chest abdomen, or pelvis. 2. Small to moderate right pleural effusion and likely underlying atelectasis. Very mild nodularity in the superior segment of the left lower lobe could reflect mild pneumonia or pneumonitis. 3. Distended gallbladder with cholelithiasis but no definite evidence of acute cholecystitis. Could correlate with LFTs. Conclusions/Impression: CKD V with proteinuria/ ESRD Renal Transplant 2008 -No NSAIDs -Continue Tacrolimus and Mycophenolate -Continue Prednisone 10mg daily -HD initiated 07-27-22 due to ESRD Hyperkalemia -Renal diet HTN with CKD -Hydralazine IV prn -Continue Nifedipine ER 90mg BID -Hold Hydralazine DM II with CKD -RISS Moderate malnutrition with debility and anorexia -Continue Nepro -Continue MVI -PT as tolerated Anemia in chronic illness -Monitor H&H -Retacrit MWF Toxic Metabolic Encephalopathy suspicious for PRES -CT Head negative for acute change -Brain MRI reviewed CAD PAD/ Atherosclerosis of aorta Paroxysmal Afib complicated by bradycardia -Cardiology prn
--- NOTE | 2022-07-30 00:11 | P.PN ---
Date of Service: 07/28/22 Subjective tolerating HD; possible SNF per family; will get PT evaluation Review of Systems 10-point ROS is otherwise unremarkable Physical Examination - Vital Signs Reviewed - Physical Exam General: Alert, In no apparent distress, Oriented x3 Respiratory: Clear to auscultation bilaterally, Normal air movement Cardiovascular: Regular rate/rhythm, Normal S1 S2 Gastrointestinal: Normal bowel sounds, Soft and benign, Non-distended, No tenderness Musculoskeletal: No clubbing, No swelling, No tenderness Neurological: Sensation intact, Cranial nerves 3-12 intact Assessment & Plan - Problems (Diagnosis) (1) ESRD (end stage renal disease) Current Visit: Yes Status: Acute (2) S/P kidney transplant Current Visit: Yes Status: Acute (3) Anemia, chronic renal failure Current Visit: Yes Status: Acute (4) Hyperkalemia Current Visit: Yes Status: Acute - Plan Plan of care as mentioned below: 1. Hemodialysis per nephrology 2. Monitor blood sugars closely 3. Monitor potassium level 4. Strict blood pressure control 5. Continue with physical therapy 6. GI DVT prophylaxis
--- NOTE | 2022-07-30 00:11 | P.PN ---
Date of Service: 07/29/22 Subjective Continues to improve. Clinical condition is stable. Chronic get patient out of bed to ambulate with physical therapy but he is really weak. Did talk to him about going to a senior living facility and initially he was agreeable. However, he has changed his mind and he wants to go home with home health. I did explain to him that the only way that happens is if he is able to start ambulating while he is here at the hospital. If he is unable to then he will still need to go to rehab as he will not be safe to discharge home unless his has much more assistance. Review of Systems 10-point ROS is otherwise unremarkable Physical Examination - Vital Signs Reviewed - Physical Exam General: Alert, In no apparent distress, Oriented x3 Respiratory: Clear to auscultation bilaterally, Normal air movement Cardiovascular: Regular rate/rhythm, Normal S1 S2 Gastrointestinal: Normal bowel sounds, Soft and benign, Non-distended, No tenderness Musculoskeletal: No clubbing, No swelling, No tenderness Neurological: Sensation intact, Cranial nerves 3-12 intact Assessment & Plan - Problems (Diagnosis) (1) ESRD (end stage renal disease) Current Visit: Yes Status: Acute (2) S/P kidney transplant Current Visit: Yes Status: Acute (3) Anemia, chronic renal failure Current Visit: Yes Status: Acute (4) Hyperkalemia Current Visit: Yes Status: Acute - Plan Plan of care as mentioned below: 1. Hemodialysis per nephrology 2. Strict blood sugar control continue monitoring electrolytes closely 3. Monitor labs 4. Strict blood pressure control 5. Continue with physical therapy 6. GI DVT prophylaxis
[2022-07-30 04:09] LABS: Absolute Lymphocytes (CBC) 0.3 K/uL (0.7-4.9); Hematocrit 26.9 % (39.6-49.0); Lymphocytes % 4.8 % (15.3-44.8); MCV 88.3 fL (80-100); MPV 9.2 fL (7.6-11.3); RBC Red Blood Cell Count 3.05 M/uL (4.33-5.43)
[2022-07-30 04:20] LABS: Potassium 4.2 mmol/L (3.5-5.1)
[2022-07-30] MEDS: PANTOPRAZOLE 40MG TABLET PO SCH (05:07)
[2022-07-30] MEDS: METOPROLOL TAR 25 MG TAB PO SCH ×2 (05:07→16:58)
[2022-07-30] MEDS: INSULIN -REGULAR HUMAN 50 UNIT/0.5 ML ML SQ SCH ×4 (07:30→21:58)
[2022-07-30] MEDS: TACROLIMUS 1 MG PO SCH ×2 (09:00→21:00)
[2022-07-30] MEDS: AZITHROMYCIN IV 500 MG in NA CHLORIDE 0.9% 250 ML IVPB SCH (09:25)
[2022-07-30] MEDS: SEVELAMER CARBONATE 800 MG TABLET PO SCH ×3 (09:26→16:58)
[2022-07-30] MEDS: predniSONE 10 MG TAB PO SCH (09:26)
[2022-07-30] MEDS: ACYCLOVIR 400 MG TABLET PO SCH (09:26)
[2022-07-30] MEDS: ATORVASTATIN 10 MG TAB PO SCH (09:26)
[2022-07-30] MEDS: NIFEDIPINE XL 90 MG TABLET PO SCH (09:26)
[2022-07-30] MEDS: allopurinoL 100 MG TAB PO SCH (09:27)
[2022-07-30] MEDS: ASPIRIN 81 MG CHEWABLE TABLET PO SCH (09:27)
[2022-07-30] MEDS: MULTIVITAMINS,THERAPEUT 1 TAB PO SCH (09:27)
[2022-07-30] MEDS: MYCOPHENOLATE MOFETIL 500 MG PO SCH ×2 (09:27→21:55)
[2022-07-30] MEDS: DOCUSATE NA 100 MG CAP PO SCH ×2 (09:27→21:54)
[2022-07-30] MEDS: levETIRAcetam 500 MG in NA CHLORIDE 0.9% 100 ML IV SCH ×2 (09:29→21:54)
[2022-07-30] MEDS: HEPARIN 5000 UNIT/ML 1 ML VIAL SQ SCH ×2 (09:29→21:53)
[2022-07-30] MEDS: CEFTRIAXONE 1,000 MG in NA CHLORIDE 0.9% 50 ML IVPB SCH (09:30)
[2022-07-30] MEDS: NEPRO SHAKE 237 ML CAN PO SCH ×3 (09:30→21:00)
--- NOTE | 2022-07-30 12:03 | P.PN ---
Nephrology note (S) Pt reports weakness, only able to briefly stand and take a few small steps yesterday, felt lightheaded and dizzy. Appetite low, tolerating HD. Orthostatic vitals requested with PT just earlier and was positive, pt unable to stand for very long (O) Vitals reviewed in the EMR General: NAD HEENT: Atraumatic, sclera anicteric,off NC Neck: Supple, RT IJ TDC Respiratory: b/l air entry on anterior auscultation, no rhonchi Cardiovascular: No edema, Regular rate/rhythm Gastrointestinal: Soft and benign, Non-distended, PD catheter with dressing in LLQ Musculoskeletal: Muscle mass loss Integumentary: No rashes Neurological: Awake, alert, interactive, non focal Laboratory Data (last 24 hrs) Reviewed in the EMR Conclusions/Impression: Hx of kidney transplant remotely [facility] on underlying transplant CKD IV, otherwise progressive it appears since 2014 (prior labs in the EMR) Significant proteinuria/macroalbuminuria noted on spot urine testing 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 Initiated dialysis in the setting of his low GFR state and hyperkalemia/acidosis over the weekend, last HD Tue. 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 Seizure unspecified Likely related to hypertensive PRES encephalopathy, improved, caution with any ASSEMBLER PIANO acting meds Hyperkalemia Resolved post HD Hiram Oneil MD, JOSE
[2022-07-30] MEDS ORDERED: NA CHLORIDE 0.9% 250 ML IV ONE (12:15)
[2022-07-30] MEDS: EPOETIN ALFA 10,000 UNIT/ML VIAL SQ SCH (16:59)
[2022-07-30] MEDS: NIFEDIPINE XL 60 MG TABLET PO SCH (21:54)
[2022-07-31] MEDS: METOPROLOL TAR 25 MG TAB PO SCH ×2 (06:01→17:34)
[2022-07-31] MEDS: PANTOPRAZOLE 40MG TABLET PO SCH (06:01)
[2022-07-31] MEDS: INSULIN -REGULAR HUMAN 50 UNIT/0.5 ML ML SQ SCH ×4 (07:30→20:36)
[2022-07-31] MEDS: NEPRO SHAKE 237 ML CAN PO SCH ×3 (09:00→20:37)
[2022-07-31] MEDS: TACROLIMUS 1 MG PO SCH ×2 (09:00→20:35)
[2022-07-31] MEDS ORDERED: FUROSEMIDE 40 MG TABLET PO SCH (09:00)
[2022-07-31] MEDS: predniSONE 10 MG TAB PO SCH (09:44)
[2022-07-31] MEDS: SEVELAMER CARBONATE 800 MG TABLET PO SCH ×3 (09:44→17:34)
[2022-07-31] MEDS: NIFEDIPINE XL 60 MG TABLET PO SCH ×2 (09:44→20:36)
[2022-07-31] MEDS: ACYCLOVIR 400 MG TABLET PO SCH (09:45)
[2022-07-31] MEDS: allopurinoL 100 MG TAB PO SCH (09:45)
[2022-07-31] MEDS: DOCUSATE NA 100 MG CAP PO SCH ×2 (09:45→20:36)
[2022-07-31] MEDS: ASPIRIN 81 MG CHEWABLE TABLET PO SCH (09:45)
[2022-07-31] MEDS: MULTIVITAMINS,THERAPEUT 1 TAB PO SCH (09:46)
[2022-07-31] MEDS: AZITHROMYCIN IV 500 MG in NA CHLORIDE 0.9% 250 ML IVPB SCH (09:46)
[2022-07-31] MEDS: ATORVASTATIN 10 MG TAB PO SCH (09:46)
[2022-07-31] MEDS: CEFTRIAXONE 1,000 MG in NA CHLORIDE 0.9% 50 ML IVPB SCH (09:46)
[2022-07-31] MEDS: levETIRAcetam 500 MG in NA CHLORIDE 0.9% 100 ML IV SCH ×2 (09:47→20:35)
[2022-07-31] MEDS: MYCOPHENOLATE MOFETIL 500 MG PO SCH ×2 (09:47→20:34)
[2022-07-31] MEDS: HEPARIN 5000 UNIT/ML 1 ML VIAL SQ SCH ×2 (10:13→20:37)
[2022-07-31] MEDS ORDERED: HYDROCODONE/APAP 10/325 TAB PO PRN (12:23)
--- NOTE | 2022-07-31 15:20 | P.PN ---
Nephrology note (S) Pt seen on HD, tolerating session, no UF being performed, supine BP is not low (O) Vitals reviewed in the EMR General: NAD HEENT: Atraumatic, sclera anicteric,off NC Neck: Supple, RT IJ TDC Respiratory: b/l air entry on anterior auscultation, no rhonchi Cardiovascular: No edema, Regular rate/rhythm Gastrointestinal: Soft and benign, Non-distended, PD catheter with dressing in LLQ Musculoskeletal: Muscle mass loss Integumentary: No rashes Neurological: Awake, alert, interactive, non focal Laboratory Data (last 24 hrs) Reviewed in the EMR Conclusions/Impression: Hx of kidney transplant remotely ENMA on underlying transplant CKD IV, otherwise progressive it appears since 2014 (prior labs in the EMR) Significant proteinuria/macroalbuminuria noted on spot urine testing 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 Initiated dialysis in the setting of his low GFR state and hyperkalemia/acidosis over the weekend, last HD Tue. 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
[2022-08-01] MEDS: HYDRALAZINE HCL 20 MG/ML VIAL IV PRN ×2 (04:24→16:28)
[2022-08-01] MEDS: PANTOPRAZOLE 40MG TABLET PO SCH (07:00)
[2022-08-01] MEDS: METOPROLOL TAR 25 MG TAB PO SCH ×2 (07:00→18:02)
[2022-08-01] MEDS: INSULIN -REGULAR HUMAN 50 UNIT/0.5 ML ML SQ SCH ×4 (07:30→20:47)
[2022-08-01] MEDS: TACROLIMUS 1 MG PO SCH ×2 (09:00→20:49)
[2022-08-01] MEDS: NEPRO SHAKE 237 ML CAN PO SCH ×3 (09:00→20:47)
[2022-08-01] MEDS: ACYCLOVIR 400 MG TABLET PO SCH (09:05)
[2022-08-01] MEDS: SEVELAMER CARBONATE 800 MG TABLET PO SCH ×3 (09:06→17:43)
[2022-08-01] MEDS: ASPIRIN 81 MG CHEWABLE TABLET PO SCH (09:06)
[2022-08-01] MEDS: NIFEDIPINE XL 60 MG TABLET PO SCH ×2 (09:06→20:42)
[2022-08-01] MEDS: predniSONE 10 MG TAB PO SCH (09:06)
[2022-08-01] MEDS: DOCUSATE NA 100 MG CAP PO SCH ×2 (09:06→20:43)
[2022-08-01] MEDS: DRISDOL (VITAMIN D=ERGOCALCIFEROL) 50000 UNIT CAP PO SCH (09:06)
[2022-08-01] MEDS: ATORVASTATIN 10 MG TAB PO SCH (09:06)
[2022-08-01] MEDS: allopurinoL 100 MG TAB PO SCH (09:06)
[2022-08-01] MEDS: MULTIVITAMINS,THERAPEUT 1 TAB PO SCH (09:06)
[2022-08-01] MEDS: CEFTRIAXONE 1,000 MG in NA CHLORIDE 0.9% 50 ML IVPB SCH (09:07)
[2022-08-01] MEDS: levETIRAcetam 500 MG in NA CHLORIDE 0.9% 100 ML IV SCH ×2 (09:07→20:43)
[2022-08-01] MEDS: MYCOPHENOLATE MOFETIL 500 MG PO SCH ×2 (09:07→20:49)
[2022-08-01] MEDS: AZITHROMYCIN IV 500 MG in NA CHLORIDE 0.9% 250 ML IVPB SCH (09:08)
[2022-08-01] MEDS: HEPARIN 5000 UNIT/ML 1 ML VIAL SQ SCH ×2 (09:23→20:43)
[2022-08-01] MEDS ORDERED: ALBUTEROL 2.5 MG/3 ML NEB SOL NEB PRN ×2 (09:59→10:00)
[2022-08-01] MEDS ORDERED: FUROSEMIDE 40 MG/4 ML VIAL IV ONE (17:02)
--- NOTE | 2022-08-01 17:33 | P.PN ---
Date of Service: 07/30/22 Subjective No new changes. Patient still really weak and he states he gets lightheaded whenever physical therapy gets him up. He is not really that willing to participate aggressively with physical therapy. Working on discharging home with home health. Review of Systems 10-point ROS is otherwise unremarkable Physical Examination - Vital Signs Reviewed - Physical Exam General: Alert, In no apparent distress, Oriented x3 Respiratory: Clear to auscultation bilaterally, Normal air movement Cardiovascular: Regular rate/rhythm, Normal S1 S2 Gastrointestinal: Normal bowel sounds, Soft and benign, Non-distended, No tenderness Musculoskeletal: No clubbing, No swelling, No tenderness Neurological: Sensation intact, Cranial nerves 3-12 intact Assessment & Plan - Problems (Diagnosis) (1) ESRD (end stage renal disease) Current Visit: Yes Status: Acute (2) S/P kidney transplant Current Visit: Yes Status: Acute (3) Anemia, chronic renal failure Current Visit: Yes Status: Acute (4) Hyperkalemia Current Visit: Yes Status: Acute - Plan Plan of care as mentioned below: 1. Hemodialysis per nephrology; Arranged for outpatient hemodialysis at clinic 2. Strict Blood pressure and blood sugar control 3. Monitor labs day of HD 4. Failed transplant; immunosuppressants on hold 5. Continue with physical therapy; would benefit from PT at home or SNF placement 6. GI DVT prophylaxis
--- NOTE | 2022-08-01 17:35 | P.PN ---
Date of Service: 07/31/22 Subjective Patient continues to do well. The family was in the room when patient was saying he was going to go home. However, they had a talk with him and she is decided to go to a residential facility. We will continue with getting patient out of bed to ambulate as well as getting patient out bed into a chair. Physical therapy will resume Tuesday morning. Review of Systems 10-point ROS is otherwise unremarkable Physical Examination - Vital Signs Reviewed - Physical Exam General: Alert, In no apparent distress, Oriented x3 Respiratory: Clear to auscultation bilaterally, Normal air movement Cardiovascular: Regular rate/rhythm, Normal S1 S2 Gastrointestinal: Normal bowel sounds, Soft and benign, Non-distended, No tenderness Musculoskeletal: No clubbing, No swelling, No tenderness Neurological: Sensation intact, Cranial nerves 3-12 intact Assessment & Plan - Problems (Diagnosis) (1) ESRD (end stage renal disease) Current Visit: Yes Status: Acute (2) S/P kidney transplant Current Visit: Yes Status: Acute (3) Anemia, chronic renal failure Current Visit: Yes Status: Acute (4) Hyperkalemia Current Visit: Yes Status: Acute - Plan Plan of care as mentioned below: 1. Continue with hemodialysis per nephrology; Arranged for outpatient hemodialysis at clinic 2. Continue with strict blood pressure and blood sugar control 3. Monitor labs day on day of HD 4. Failed transplant; immunosuppressants on hold 5. Continue with physical therapy; would benefit from PT at home or SNF placement 6. Diurese patient 7. GI DVT prophylaxis
--- NOTE | 2022-08-01 17:38 | P.PN ---
Date of Service: 08/01/22 Subjective Has been reviewed. Patient is a 66-year-old gentleman who has a history of renal transplant and he has been on immunosuppressant. Patient has recovered well from his hemodialysis access catheter placement as well as peritoneal dialysis access catheter placement. Patient is not really participating well with physical therapy. His strength is significantly diminished. Had a family meeting and agreement was that [place] [facility] [place] [facility] in [place], [place]. Physical Examination - Vital Signs Reviewed - Physical Exam General: Alert, In no apparent distress, Oriented x3 Respiratory: Clear to auscultation bilaterally, Normal air movement Cardiovascular: Regular rate/rhythm, Normal S1 S2 Gastrointestinal: Normal bowel sounds, Soft and benign, Non-distended, No tenderness Musculoskeletal: No clubbing, No swelling, No tenderness Neurological: Sensation intact, Cranial nerves 3-12 intact Assessment & Plan - Problems (Diagnosis) (1) ESRD (end stage renal disease) Current Visit: Yes Status: Acute (2) S/P kidney transplant Current Visit: Yes Status: Acute (3) Anemia, chronic renal failure Current Visit: Yes Status: Acute (4) Hyperkalemia Current Visit: Yes Status: Acute - Plan Plan of care as mentioned below: 1. Continue with hemodialysis per nephrology; Arranged for outpatient hemodialysis at clinic 2. Continue with strict blood pressure and blood sugar control 3. Monitor labs day on day of HD 4. Failed transplant; immunosuppressants on hold 5. Continue with physical therapy; after long discussion family has agreed to go to [place] [facility] [place] [facility] 6. Diurese patient 7. GI DVT prophylaxis
[2022-08-02] MEDS: HYDRALAZINE HCL 20 MG/ML VIAL IV PRN (03:56)
[2022-08-02 04:04] LABS: Potassium 4.5 mmol/L (3.5-5.1)
[2022-08-02 05:31] LABS: Magnesium 2.2 mg/dL (1.6-2.4); Phosphorus 1.8 mg/dL (2.5-4.9)
[2022-08-02] MEDS: PANTOPRAZOLE 40MG TABLET PO SCH (06:18)
[2022-08-02] MEDS: METOPROLOL TAR 25 MG TAB PO SCH ×2 (06:19→17:07)
[2022-08-02] MEDS: INSULIN -REGULAR HUMAN 50 UNIT/0.5 ML ML SQ SCH ×4 (07:30→20:35)
[2022-08-02] MEDS: HEPARIN 5000 UNIT/ML 1 ML VIAL SQ SCH ×2 (08:38→20:35)
[2022-08-02] MEDS: SEVELAMER CARBONATE 800 MG TABLET PO SCH ×3 (08:38→16:43)
[2022-08-02] MEDS: predniSONE 10 MG TAB PO SCH (08:38)
[2022-08-02] MEDS: allopurinoL 100 MG TAB PO SCH (08:39)
[2022-08-02] MEDS: ATORVASTATIN 10 MG TAB PO SCH (08:39)
[2022-08-02] MEDS: ACYCLOVIR 400 MG TABLET PO SCH (08:39)
[2022-08-02] MEDS: DOCUSATE NA 100 MG CAP PO SCH ×2 (08:39→20:35)
[2022-08-02] MEDS: MYCOPHENOLATE MOFETIL 500 MG PO SCH ×2 (08:40→20:36)
[2022-08-02] MEDS: ASPIRIN 81 MG CHEWABLE TABLET PO SCH (08:40)
[2022-08-02] MEDS: TACROLIMUS 1 MG PO SCH ×2 (08:41→20:37)
[2022-08-02] MEDS: NIFEDIPINE XL 60 MG TABLET PO SCH ×2 (08:43→20:35)
[2022-08-02] MEDS: ESCITALOPRAM 20 MG TAB PO SCH (08:43)
[2022-08-02] MEDS: CEFTRIAXONE 1,000 MG in NA CHLORIDE 0.9% 50 ML IVPB SCH (08:44)
[2022-08-02] MEDS: NEPRO SHAKE 237 ML CAN PO SCH ×3 (08:48→20:37)
[2022-08-02] MEDS: levETIRAcetam 500 MG in NA CHLORIDE 0.9% 100 ML IV SCH ×2 (09:16→20:34)
[2022-08-02] MEDS ORDERED: POTASS/SODIUM PHOSPHATE 1 PKT POWD.PACK PO ONE (09:51)
--- NOTE | 2022-08-02 09:55 | P.PN ---
Date of Service: 08/02/22 Vital Signs Temp Pulse Resp BP Pulse Ox 97.6 F 61 14 125/52 L 96 08/02/22 08:00 08/02/22 08:00 08/02/22 08:00 08/02/22 08:00 08/02/22 08:00 Medications Acetaminophen (Acetaminophen 325 Mg Tablet) 650 mg PO Q6H PRN PRN Reason: TEMP > 100' F Last Admin: 07/25/22 09:34 Dose: 650 mg Hydrocodone Bitart/Acetaminophen (Hydrocodone/Apap 10/325 Tab) 1 tab PO Q4H PRN PRN Reason: Pain scale 4-6 Last Admin: 07/31/22 12:56 Dose: 1 tab Acyclovir (Acyclovir 400 Mg Tablet) 200 mg PO DAILY [facility] Last Admin: 08/02/22 08:39 Dose: 200 mg Albuterol Sulfate (Albuterol 2.5 Mg/3 Ml Neb Bebe) 2.5 mg NEB [id number] PRN PRN Reason: SHORTNESS OF BREATH Allopurinol (Allopurinol 100 Mg Tab) 200 mg PO DAILY [facility] Last Admin: 08/02/22 08:39 Dose: 200 mg Aspirin (Aspirin 81 Mg Chewable Tablet) 81 mg PO DAILY [facility] Last Admin: 08/02/22 08:40 Dose: 81 mg Atorvastatin Calcium (Atorvastatin 10 Mg Tab) 10 mg PO DAILY [facility] Last Admin: 08/02/22 08:39 Dose: 10 mg Dextrose (D10w 250 Ml Bag) 125 ml IV PRN PRN; Protocol PRN Reason: HYPOGLYCEMIA Docusate Sodium (Docusate Na 100 Mg Cap) 100 mg PO BID [facility] Last Admin: 08/02/22 08:39 Dose: 100 mg Enteral Nutritional Formula (Nepro Shake 237 Ml Can) 240 ml PO TID [facility] Last Admin: 08/02/22 08:48 Dose: 240 ml Epoetin David (Epoetin David 10,000 Unit/Ml Vial) 10,000 unit SQ MoWeFr@1700 [facility] Last Admin: 07/30/22 16:59 Dose: 10,000 unit Ergocalciferol (Drisdol (Vitamin D=Ergocalciferol) 62855 Unit Cap) 50,000 unit PO Q7D@0900 [facility] Last Admin: 08/01/22 09:06 Dose: 50,000 unit Escitalopram Oxalate (Escitalopram 20 Mg Tab) 20 mg PO DAILY [facility] Last Admin: 08/02/22 08:43 Dose: 20 mg Fentanyl Citrate (Fentanyl Citr 100 Mcg/2 Ml) 25 mcg IV Q8H PRN PRN Reason: Pain scale 7-10 Last Admin: 07/28/22 21:34 Dose: 25 mcg Glucagon (Glucagon 1 Mg/Vial) 1 mg IM 1X PRN PRN Reason: HYPOGLYCEMIA Heparin Sodium (Porcine) (Heparin 5000 Unit/Ml 1 Ml Vial) 5,000 unit SQ Q12HR [facility] Last Admin: 08/02/22 08:38 Dose: 5,000 unit Heparin Sodium (Porcine) (Heparin 1,000 Unit/Ml Vial) 4,000 unit IV EVERY HD PRN PRN Reason: FOR DIALYSIS CATHETER CARE Last Admin: 07/31/22 16:46 Dose: 4,000 unit Home Med (Mycophenolate Mofetil [Cellcept]) 250 mg PO BID [facility] Last Admin: 08/02/22 08:40 Dose: 250 mg Home Med (Tacrolimus [Tacrolimus]) 2 mg PO BID [facility] Last Admin: 08/02/22 08:41 Dose: 2 mg Hydralazine HCl (Hydralazine Hcl 20 Mg/Ml Vial) 5 mg IV Q6HP PRN PRN Reason: SBP > 160 - IF LABETALOL INEFF Last Admin: 08/02/22 03:56 Dose: 5 mg Azithromycin 500 mg/ Sodium (Chloride) 250 mls @ 250 mls/hr IVPB DAILY [facility]; Protocol Last Admin: 08/01/22 09:08 Dose: 250 mls Ceftriaxone Sodium 1,000 mg/ (Sodium Chloride) 50 mls @ 100 mls/hr IVPB DAILY [facility]; Protocol Last Admin: 08/02/22 08:44 Dose: 50 mls Levetiracetam 500 mg/ Sodium (Chloride) 105 mls @ 420 mls/hr IV BID [facility] Last Admin: 08/02/22 09:16 Dose: 105 mls Albumin Human (Albumin 25%) 50 mls @ 100 mls/hr IV EVERY HD [facility] Insulin Human Regular (Insulin -Regular Human 50 Unit/0.5 Ml Ml) 0 unit SQ ACHS [facility]; Protocol Last Admin: 08/01/22 20:47 Dose: 4 unit Ipratropium [place] (Ipratropium Brom 0.5mg/2.5ml) 0.5 mg NEB [id number] PRN PRN Reason: SHORTNESS OF BREATH Mannitol (Mannitol 25% 12.5 Gm/50 Ml Vial) 12.5 gm IV EVERY HD PRN PRN Reason: PRN FOR BP SUPPORT AT HD Metoprolol Tartrate (Metoprolol Tar 25 Mg Tab) 25 mg PO BID 6AM 6PM [facility] Last Admin: 08/02/22 06:19 Dose: 25 mg Nifedipine (Nifedipine Xl 60 Mg Tablet) 60 mg PO BID [facility] Last Admin: 08/02/22 08:43 Dose: 60 mg Ondansetron HCl (Ondansetron 4 Mg/2 Ml Vial) 4 mg IV Q6HP PRN PRN Reason: NAUSEA / VOMITING Last Admin: 07/28/22 21:35 Dose: 4 mg Pantoprazole Sodium (Pantoprazole 40mg Tablet) 40 mg PO DAILYAC [facility] Last Admin: 08/02/22 06:18 Dose: 40 mg Prednisone (Prednisone 10 Mg Tab) 10 mg PO DAILY [facility] Last Admin: 08/02/22 08:38 Dose: 10 mg Sevelamer Carbonate (Sevelamer Carbonate 800 Mg Tablet) 800 mg PO TIDWM [facility] Last Admin: 08/02/22 08:38 Dose: 800 mg Sodium Chloride (Flush Normal Saline 10 Ml) 10 ml IV BID [facility] Last Admin: 08/02/22 08:48 Dose: 10 ml Vitamin B Complex/Vit C/Folic Acid (Multivitamins,Therapeut 1 Tab) 1 tab PO DAILY [facility] Last Admin: 08/01/22 09:06 Dose: 1 tab Assessment/ Plan: Nephrology No dyspnea No chest pain Improving appetite Fatigue and weakness No acute events overnight Vitals, medications, blood work and imaging reviewed in the chart. General: In no apparent distress, Cooperative HEENT: Atraumatic Neck: Supple Respiratory: Clear to auscultation bilaterally Cardiovascular: No edema, Regular rate/rhythm Gastrointestinal: Soft and benign, Non-distended Musculoskeletal: No clubbing, No contractures Integumentary: No rashes, No cyanosis Neurological: Abnormal speech, Abnormal affect Laboratory Data (last 24 hrs) 07/20/22 09:10: Phosphorus 4.0, Magnesium 2.1 07/20/22 09:10: Sodium 137, Potassium 5.1, BUN 47 H, Creatinine 3.31 H, Glucose 131 H, Total Bilirubin 0.7, AST 10 L, ALT 11 L, Alkaline Phosphatase 111, Lipase 43 L 07/20/22 09:10: WBC 9.10, Hgb 11.0 L, Hct 33.8 L, Plt Count 257 Imagings Data: EXAM DESCRIPTION: CT - Head Brain Wo Cont - 07/20/2022 3:14 pm CLINICAL HISTORY: AMS Fall, trauma, head injury COMPARISON: No comparisons TECHNIQUE: All CT scans are performed using dose optimization technique as appro priate and may include automated exposure control or mA/KV adjustment according to patient size. FINDINGS: No intracranial hemorrhage, hydrocephalus or extra-axial fluid collection.Mild brain atrophy is present.No areas of brain edema or evidence of midline shift. Vertebral atherosclerosis. The paranasal sinuses and mastoids are clear. The calvarium is intact. IMPRESSION: No acute intracranial abnormality. EXAM DESCRIPTION: CTChest Abd Pelvis Wo Con - 07/20/2022 10:02 am CLINICAL HISTORY: fall, rib pain, back pain COMPARISON: CT CHEST ABD PELVIS WO CONT dated 09/20/2007 TECHNIQUE: CT of the chest, abdomen, and pelvis was performed. All CT scans are performed using dose optimization technique as appropriate and may include automated exposure control or mA/KV adjustment according to patient size. FINDINGS: Thorax: Chest Wall: No abnormal mass Lungs: Nodular airspace disease in the superior segment of the left lower lobe. Likely atelectasis as a result of the fusion. Pleura: Small to moderate right pleural effusion. Kari/Mediastinum: No lymphadenopathy. Aorta/Pulmonary Arteries: Unremarkable Heart: Normal size. Multi-vessel coronary artery disease. Small pericardial effusion. Abdomen/Pelvis: Liver: No acute abnormality or suspicious lesions. Biliary: Cholelithiasis. Distended gallbladder. Stomach: No significant focal abnormality. Duodenum: No significant focal abnormality. Pancreas: No significant abnormality. Spleen: No significant abnormality. Adrenal: No suspicious lesions. Kidney/ureter: No hydronephrosis. No renal calculi. Atrophic [place] kidneys. Right upper pole renal lesion which is likely a cyst. Right iliac fossa renal transplant. No hydronephrosis. Retroperitoneum: No retroperitoneal adenopathy. Vascular: No aneurysm. Advanced atherosclerosis. Bowel: Liquid contents within the rectum.. Peritoneum: No ascites or free air. Bladder: Grossly unremarkable. Reproductive: No masses identified. Bones: No acute fracture. Other: n/a IMPRESSION: 1. No evidence of significant trauma to the chest abdomen, or pelvis. 2. Small to moderate right pleural effusion and likely underlying atelectasis. Very mild nodularity in the superior segment of the left lower lobe could reflect mild pneumonia or pneumonitis. 3. Distended gallbladder with cholelithiasis but no definite evidence of acute cholecystitis. Could correlate with LFTs. Conclusions/Impression: CKD V with proteinuria/ ESRD Renal Transplant 2008 -No NSAIDs -Continue Tacrolimus and Mycophenolate -Continue Prednisone 10mg daily -HD initiated 07-27-22 due to ESRD Hyperkalemia -Renal diet Hypophosphatemia -Neutraphos X1 HTN with CKD -Hydralazine IV prn -Continue Nifedipine ER 90mg BID -Hold Hydralazine DM II with CKD -RISS Moderate malnutrition with debility and anorexia -Continue Nepro -Continue MVI -PT as tolerated Anemia in chronic illness -Monitor H&H -Retacrit MWF CKD MBD -Continue Ergo -Start Calcitriol Toxic Metabolic Encephalopathy suspicious for PRES -CT Head negative for acute change -Brain MRI reviewed CAD PAD/ Atherosclerosis of aorta Paroxysmal Afib complicated by bradycardia -Cardiology prn
[2022-08-02] MEDS: AZITHROMYCIN IV 500 MG in NA CHLORIDE 0.9% 250 ML IVPB SCH (10:15)
[2022-08-02] MEDS: MULTIVITAMINS,THERAPEUT 1 TAB PO SCH (10:17)
[2022-08-02] MEDS: ONDANSETRON 4 MG/2 ML VIAL IV PRN (13:19)
[2022-08-02] MEDS: CALCITROL 0.25 MCG CAP PO SCH (16:43)
[2022-08-02] MEDS: EPOETIN ALFA 10,000 UNIT/ML VIAL SQ SCH (17:07)
--- NOTE | 2022-08-02 18:17 | P.PN ---
Subjective Date of Service: 08/02/22 Chief Complaint: AMS No acute events overnight. He states that he is doing well outside of generalized weakness. He and his family have selected [facility] SNF. Appreciate CM assistance with placement. Review of Systems 10-point ROS is otherwise unremarkable General: Weakness (generalized) Physical Examination - Vital Signs Temperature: 97.5 F Blood Pressure: 166/60 Pulse: 66 Respirations: 14 Pulse Ox (%): 98 - Studies Medications List Reviewed: Yes Assessment And Plan - Plan - Physical Exam General: Alert, In no apparent distress, Oriented x3 HEENT: Atraumatic, Sclerae nonicteric Neck: JVD not distended Respiratory: Clear to auscultation without wheezes, rhonchi, or rales Cardiovascular: No edema, Regular rate/rhythm, No murmurs Gastrointestinal: Soft, Non-distended, No tenderness Musculoskeletal: No clubbing Integumentary: No rashes Neurological: Normal speech, Normal affect # Deconditioning - PT consulted - Appreciate CM assistance with placement into SNF # Acute Toxic Metabolic Encephalopathy with Acute Seizure - concern for Posterior Reversible Encephalopathy Syndrome (PRES) - resolved # Hypertensive Emergency with Acute Encephalopathy - resolved - Evaluation thus far: - Labs = Na+ 136, Ca2+ 8.3, CO2 21, Glucose 162, Ammonia 34, BUN 47, Vitamin B12 928, TSH 3.66 - ABG = pH 7.33, PCO2 40.6, PO2 60.2 - Tacrolimus level = 5.5 - Blood cultures x 2 drawn - Urinalysis = unremarkable - CT head = " No acute intracranial abnormality." - MRI brain = "No acute intracranial abnormality. Specifically, no evidence of acute infarct." - EEG = "this is a moderately abnormal routine eeg due to the presence of a moderately slow and poorly express background activity. this is a nonspecific finding indicating the presence of a moderate diffuse disturbance in cerebral activity. no epileptiform activity was recorded." - Management plan: - Consulted Neurology - recommendations appreciated - Consulted Nephrology - recommendations appreciated - q4hr neurochecks - Continue levetiracetam # Acute Kidney Injury on Chronic Kidney Disease Stage IV of Transplanted Kidney now on Hemodialysis - Nephrology consulted and spoke with Dr. Oden - recommendations appreciated - Immunosuppressants per Neph - S/P HD and PD dialysis catheter placement by Dr. Fischer - Creatinine = near baseline - Urinalysis = unremarkable - Renal ultrasound = "unremarkable ultrasound transplant kidney." - Monitor creatinine and urine output - Renally dose medications # Community Acquired Pneumonia - Evaluation thus far: - Does not meet sepsis criteria - Procalcitonin = 0.62 - ABG = pH 7.33, PCO2 40.6, PO2 60.2 - Chest x-ray = "bibasilar airspace opacities as above, concerning for underlying pneumonia. Prominence of the central interstitium could reflect a component of pulmonary edema as well." - CT chest/abdomen/pelvis = "1. No evidence of significant trauma to the chest abdomen, or pelvis. 2. Small to moderate right pleural effusion and likely underlying atelectasis. Very mild nodularity in the superior segment of the left lower lobe could reflect mild pneumonia or pneumonitis. 3. Distended gallbladder with cholelithiasis but no definite evidence of acute cholecystitis. Could correlate with LFTs." - RUQ ultrasound = "cholelithiasis without convincing sonographic evidence of acute cholecystitis. Trace pericholecystic fluid favored to represent ascites rather than as a result of inflammation. Right-sided pleural effusion" - HIDA scan = "Nonvisualization of the gallbladder. The study is indeterminate, as this could be related to the somewhat prolonged duration since timing of last food intake, versus obstruction of the cystic duct. Normal tracer excretion in the small bowel, confirming patent extrahepatic bile ducts." - General Surgery consulted and spoke with Dr. Fischer - recommendations appreciated - Management plan: - Consulted Respiratory Therapy - Supplemental oxygen to maintain SpO2 > 92% - Completed course of ceftriaxone + azithromycin - Incentive spirometry as tolerated # Type II Diabetes Mellitus - Continue correction scale insulin # Gastroesophageal Reflux Disease - Continue pantoprazole # Subclinical Hypothyroidism - TSH 6.46, Free T4 1.24 - Follow-up with PCP Jacob Mercedes M.D.
[2022-08-03] MEDS: HYDRALAZINE HCL 20 MG/ML VIAL IV PRN (00:04)
[2022-08-03 03:58] LABS: Potassium 4.4 mmol/L (3.5-5.1)
[2022-08-03] MEDS: METOPROLOL TAR 25 MG TAB PO SCH ×2 (05:59→17:08)
[2022-08-03] MEDS: PANTOPRAZOLE 40MG TABLET PO SCH (05:59)
[2022-08-03 06:40] LABS: Magnesium 2.2 mg/dL (1.6-2.4); Phosphorus 1.9 mg/dL (2.5-4.9)
[2022-08-03] MEDS: INSULIN -REGULAR HUMAN 50 UNIT/0.5 ML ML SQ SCH ×4 (07:30→20:33)
[2022-08-03] MEDS: MYCOPHENOLATE MOFETIL 500 MG PO SCH ×2 (08:52→20:32)
[2022-08-03] MEDS: SEVELAMER CARBONATE 800 MG TABLET PO SCH ×3 (08:54→17:08)
[2022-08-03] MEDS: ASPIRIN 81 MG CHEWABLE TABLET PO SCH (08:55)
[2022-08-03] MEDS: allopurinoL 100 MG TAB PO SCH (08:55)
[2022-08-03] MEDS: MULTIVITAMINS,THERAPEUT 1 TAB PO SCH (08:55)
[2022-08-03] MEDS: predniSONE 10 MG TAB PO SCH (08:55)
[2022-08-03] MEDS: ATORVASTATIN 10 MG TAB PO SCH (08:56)
[2022-08-03] MEDS: ESCITALOPRAM 20 MG TAB PO SCH (08:56)
[2022-08-03] MEDS: HEPARIN 5000 UNIT/ML 1 ML VIAL SQ SCH ×2 (08:56→20:33)
[2022-08-03] MEDS: DOCUSATE NA 100 MG CAP PO SCH ×2 (08:57→20:33)
[2022-08-03] MEDS: NIFEDIPINE XL 60 MG TABLET PO SCH ×2 (08:58→20:32)
[2022-08-03] MEDS: NEPRO SHAKE 237 ML CAN PO SCH ×3 (08:58→20:33)
[2022-08-03] MEDS: ACYCLOVIR 400 MG TABLET PO SCH (09:00)
[2022-08-03] MEDS: TACROLIMUS 1 MG PO SCH ×2 (09:00→20:38)
[2022-08-03] MEDS: levETIRAcetam 500 MG in NA CHLORIDE 0.9% 100 ML IV SCH ×2 (09:07→20:33)
--- NOTE | 2022-08-03 20:14 | P.PN ---
Subjective Date of Service: 08/03/22 Chief Complaint: AMS No acute events overnight. He is working well with PT. He reports no concerns at this time. Appreciate CM assistance with placement. Review of Systems 10-point ROS is otherwise unremarkable General: Weakness (generalized) Physical Examination - Vital Signs Temperature: 98.2 F Blood Pressure: 164/63 Pulse: 75 Respirations: 16 Pulse Ox (%): 96 - Studies Medications List Reviewed: Yes Assessment And Plan - Plan - Physical Exam General: Alert, In no apparent distress, Oriented x3 HEENT: Atraumatic, Sclerae nonicteric Neck: JVD not distended Respiratory: Clear to auscultation without wheezes, rhonchi, or rales Cardiovascular: No edema, Regular rate/rhythm, No murmurs Gastrointestinal: Soft, Non-distended, No tenderness Musculoskeletal: No clubbing Integumentary: No rashes Neurological: Normal speech, Normal affect # Deconditioning - PT consulted - Appreciate CM assistance with placement into SNF # Acute Toxic Metabolic Encephalopathy with Acute Seizure - concern for Posterior Reversible Encephalopathy Syndrome (PRES) - resolved # Hypertensive Emergency with Acute Encephalopathy - resolved - Evaluation thus far: - Labs = Na+ 136, Ca2+ 8.3, CO2 21, Glucose 162, Ammonia 34, BUN 47, Vitamin B12 928, TSH 3.66 - ABG = pH 7.33, PCO2 40.6, PO2 60.2 - Tacrolimus level = 5.5 - Blood cultures x 2 drawn - Urinalysis = unremarkable - CT head = " No acute intracranial abnormality." - MRI brain = "No acute intracranial abnormality. Specifically, no evidence of acute infarct." - EEG = "this is a moderately abnormal routine eeg due to the presence of a moderately slow and poorly express background activity. this is a nonspecific finding indicating the presence of a moderate diffuse disturbance in cerebral activity. no epileptiform activity was recorded." - Management plan: - Consulted Neurology - recommendations appreciated - Consulted Nephrology - recommendations appreciated - q4hr neurochecks - Continue levetiracetam # Acute Kidney Injury on Chronic Kidney Disease Stage IV of Transplanted Kidney now on Hemodialysis - Nephrology consulted and spoke with Dr. Oden - recommendations appreciated - Immunosuppressants per Neph - S/P HD and PD dialysis catheter placement by Dr. Fischer - Creatinine = near baseline - Urinalysis = unremarkable - Renal ultrasound = "unremarkable ultrasound transplant kidney." - Monitor creatinine and urine output - Renally dose medications # Community Acquired Pneumonia - Evaluation thus far: - Does not meet sepsis criteria - Procalcitonin = 0.62 - ABG = pH 7.33, PCO2 40.6, PO2 60.2 - Chest x-ray = "bibasilar airspace opacities as above, concerning for underlying pneumonia. Prominence of the central interstitium could reflect a component of pulmonary edema as well." - CT chest/abdomen/pelvis = "1. No evidence of significant trauma to the chest abdomen, or pelvis. 2. Small to moderate right pleural effusion and likely underlying atelectasis. Very mild nodularity in the superior segment of the left lower lobe could reflect mild pneumonia or pneumonitis. 3. Distended gallbladder with cholelithiasis but no definite evidence of acute cholecystitis. Could correlate with LFTs." - RUQ ultrasound = "cholelithiasis without convincing sonographic evidence of acute cholecystitis. Trace pericholecystic fluid favored to represent ascites rather than as a result of inflammation. Right-sided pleural effusion" - HIDA scan = "Nonvisualization of the gallbladder. The study is indeterminate, as this could be related to the somewhat prolonged duration since timing of last food intake, versus obstruction of the cystic duct. Normal tracer excretion in the small bowel, confirming patent extrahepatic bile ducts." - General Surgery consulted and spoke with Dr. Fischer - recommendations appreciated - Management plan: - Consulted Respiratory Therapy - Supplemental oxygen to maintain SpO2 > 92% - Completed course of ceftriaxone + azithromycin - Incentive spirometry as tolerated # Type II Diabetes Mellitus - Continue correction scale insulin # Gastroesophageal Reflux Disease - Continue pantoprazole # Subclinical Hypothyroidism - TSH 6.46, Free T4 1.24 - Follow-up with PCP No new changes. Awaiting placement into [facility]. Jacob Mercedes M.D.
[2022-08-03] MEDS ORDERED: LOPERAMIDE HCL 2 MG CAPSULE PO PRN (21:31)
--- NOTE | 2022-08-03 21:36 | P.PN ---
Date of Service: 08/03/22 Vital Signs Temp Pulse Resp BP Pulse Ox 98.2 F 75 16 164/63 H 96 08/03/22 20:13 08/03/22 20:13 08/03/22 20:13 08/03/22 20:13 08/03/22 20:13 Medications Acetaminophen (Acetaminophen 325 Mg Tablet) 650 mg PO Q6H PRN PRN Reason: TEMP > 100' F Last Admin: 07/25/22 09:34 Dose: 650 mg Hydrocodone Bitart/Acetaminophen (Hydrocodone/Apap 10/325 Tab) 1 tab PO Q4H PRN PRN Reason: Pain scale 4-6 Last Admin: 07/31/22 12:56 Dose: 1 tab Acyclovir (Acyclovir 400 Mg Tablet) 200 mg PO DAILY [facility] Last Admin: 08/03/22 09:00 Dose: 200 mg Albuterol Sulfate (Albuterol 2.5 Mg/3 Ml Neb Bebe) 2.5 mg NEB [id number] PRN PRN Reason: SHORTNESS OF BREATH Allopurinol (Allopurinol 100 Mg Tab) 200 mg PO DAILY [facility] Last Admin: 08/03/22 08:55 Dose: 200 mg Aspirin (Aspirin 81 Mg Chewable Tablet) 81 mg PO DAILY [facility] Last Admin: 08/03/22 08:55 Dose: 81 mg Atorvastatin Calcium (Atorvastatin 10 Mg Tab) 10 mg PO DAILY [facility] Last Admin: 08/03/22 08:56 Dose: 10 mg Calcitriol (Calcitrol 0.25 Mcg Cap) 0.5 mcg PO M,W,F [facility] Last Admin: 08/02/22 16:43 Dose: 0.5 mcg Dextrose (D10w 250 Ml Bag) 125 ml IV PRN PRN; Protocol PRN Reason: HYPOGLYCEMIA Docusate Sodium (Docusate Na 100 Mg Cap) 100 mg PO BID [facility] Last Admin: 08/03/22 20:33 Dose: Not Given Enteral Nutritional Formula (Nepro Shake 237 Ml Can) 240 ml PO TID [facility] Last Admin: 08/03/22 20:33 Dose: Not Given Epoetin David (Epoetin David 10,000 Unit/Ml Vial) 10,000 unit SQ MoWeFr@1700 [facility] Last Admin: 08/02/22 17:07 Dose: 10,000 unit Ergocalciferol (Drisdol (Vitamin D=Ergocalciferol) 22500 Unit Cap) 50,000 unit PO Q7D@0900 [facility] Last Admin: 08/01/22 09:06 Dose: 50,000 unit Escitalopram Oxalate (Escitalopram 20 Mg Tab) 20 mg PO DAILY [facility] Last Admin: 08/03/22 08:56 Dose: 20 mg Fentanyl Citrate (Fentanyl Citr 100 Mcg/2 Ml) 25 mcg IV Q8H PRN PRN Reason: Pain scale 7-10 Last Admin: 07/28/22 21:34 Dose: 25 mcg Glucagon (Glucagon 1 Mg/Vial) 1 mg IM 1X PRN PRN Reason: HYPOGLYCEMIA Heparin Sodium (Porcine) (Heparin 5000 Unit/Ml 1 Ml Vial) 5,000 unit SQ Q12HR [facility] Last Admin: 08/03/22 20:33 Dose: 5,000 unit Heparin Sodium (Porcine) (Heparin 1,000 Unit/Ml Vial) 4,000 unit IV EVERY HD PRN PRN Reason: FOR DIALYSIS CATHETER CARE Last Admin: 08/03/22 13:46 Dose: 4,000 unit Home Med (Mycophenolate Mofetil [Cellcept]) 250 mg PO BID [facility] Last Admin: 08/03/22 20:32 Dose: 250 mg Home Med (Tacrolimus [Tacrolimus]) 2 mg PO BID [facility] Last Admin: 08/03/22 20:38 Dose: 2 mg Hydralazine HCl (Hydralazine Hcl 20 Mg/Ml Vial) 5 mg IV Q6HP PRN PRN Reason: SBP > 160 - IF LABETALOL INEFF Last Admin: 08/03/22 00:04 Dose: 5 mg Levetiracetam 500 mg/ Sodium (Chloride) 105 mls @ 420 mls/hr IV BID [facility] Last Admin: 08/03/22 20:33 Dose: 105 mls Albumin Human (Albumin 25%) 50 mls @ 100 mls/hr IV EVERY HD [facility] Insulin Human Regular (Insulin -Regular Human 50 Unit/0.5 Ml Ml) 0 unit SQ ACHS [facility]; Protocol Last Admin: 08/03/22 20:33 Dose: Not Given Ipratropium Alba (Ipratropium Brom 0.5mg/2.5ml) 0.5 mg NEB [id number] PRN PRN Reason: SHORTNESS OF BREATH Mannitol (Mannitol 25% 12.5 Gm/50 Ml Vial) 12.5 gm IV EVERY HD PRN PRN Reason: PRN FOR BP SUPPORT AT HD Metoprolol Tartrate (Metoprolol Tar 25 Mg Tab) 25 mg PO BID 6AM 6PM [facility] Last Admin: 08/03/22 17:08 Dose: 25 mg Nifedipine (Nifedipine Xl 60 Mg Tablet) 60 mg PO BID [facility] Last Admin: 08/03/22 20:32 Dose: 60 mg Ondansetron HCl (Ondansetron 4 Mg/2 Ml Vial) 4 mg IV Q6HP PRN PRN Reason: NAUSEA / VOMITING Last Admin: 08/02/22 13:19 Dose: 4 mg Pantoprazole Sodium (Pantoprazole 40mg Tablet) 40 mg PO DAILYAC [facility] Last Admin: 08/03/22 05:59 Dose: 40 mg Prednisone (Prednisone 10 Mg Tab) 10 mg PO DAILY [facility] Last Admin: 08/03/22 08:55 Dose: 10 mg Sevelamer Carbonate (Sevelamer Carbonate 800 Mg Tablet) 800 mg PO TIDWM [facility] Last Admin: 08/03/22 17:08 Dose: 800 mg Sodium Chloride (Flush Normal Saline 10 Ml) 10 ml IV BID [facility] Last Admin: 08/03/22 20:33 Dose: 10 ml Vitamin B Complex/Vit C/Folic Acid (Multivitamins,Therapeut 1 Tab) 1 tab PO DAILY [facility] Last Admin: 08/03/22 08:55 Dose: 1 tab Assessment/ Plan: Nephrology No dyspnea No chest pain Improving appetite Fatigue and weakness No acute events overnight Vitals, medications, blood work and imaging reviewed in the chart. General: In no apparent distress, Cooperative HEENT: Atraumatic Neck: Supple Respiratory: Clear to auscultation bilaterally Cardiovascular: No edema, Regular rate/rhythm Gastrointestinal: Soft and benign, Non-distended Musculoskeletal: No clubbing, No contractures Integumentary: No rashes, No cyanosis Neurological: Abnormal speech, Abnormal affect Laboratory Data (last 24 hrs) 07/20/22 09:10: Phosphorus 4.0, Magnesium 2.1 07/20/22 09:10: Sodium 137, Potassium 5.1, BUN 47 H, Creatinine 3.31 H, Glucose 131 H, Total Bilirubin 0.7, AST 10 L, ALT 11 L, Alkaline Phosphatase 111, Lipase 43 L 07/20/22 09:10: WBC 9.10, Hgb 11.0 L, Hct 33.8 L, Plt Count 257 Imagings Data: EXAM DESCRIPTION: CT - Head Brain Wo Cont - 07/20/2022 3:14 pm CLINICAL HISTORY: AMS Fall, trauma, head injury COMPARISON: No comparisons TECHNIQUE: All CT scans are performed using dose optimization technique as appropriate and may include automated exposure control or mA/KV adjustment according to patient size. FINDINGS: No intracranial hemorrhage, hydrocephalus or extra-axial fluid collection.Mild brain atrophy is present.No areas of brain edema or evidence of midline shift. Vertebral atherosclerosis. The paranasal sinuses and mastoids are clear. The calvarium is intact. IMPRESSION: No acute intracranial abnormality. EXAM DESCRIPTION: CTChest Abd Pelvis Wo Con - 07/20/2022 10:02 am CLINICAL HISTORY: fall, rib pain, back pain COMPARISON: CT CHEST ABD PELVIS WO CONT dated 09/20/2007 TECHNIQUE: CT of the chest, abdomen, and pelvis was performed. All CT scans are performed using dose optimization technique as appropriate and may include automated exposure control or mA/KV adjustment according to patient size. FINDINGS: Thorax: Chest Wall: No abnormal mass Lungs: Nodular airspace disease in the superior segment of the left lower lobe. Likely atelectasis as a result of the fusion. Pleura: Small to moderate right pleural effusion. Kari/Mediastinum: No lymphadenopathy. Aorta/Pulmonary Arteries: Unremarkable Heart: Normal size. Multi-vessel coronary artery disease. Small pericardial effusion. Abdomen/Pelvis: Liver: No acute abnormality or suspicious lesions. Biliary: Cholelithiasis. Distended gallbladder. Stomach: No significant focal abnormality. Duodenum: No significant focal abnormality. Pancreas: No significant abnormality. Spleen: No significant abnormality. Adrenal: No suspicious lesions. Kidney/ureter: No hydronephrosis. No renal calculi. Atrophic [place] kidneys. Right upper pole renal lesion which is likely a cyst. Right iliac fossa renal transplant. No hydronephrosis. Retroperitoneum: No retroperitoneal adenopathy. Vascular: No aneurysm. Advanced atherosclerosis. Bowel: Liquid contents within the rectum.. Peritoneum: No ascites or free air. Bladder: Grossly unremarkable. Reproductive: No masses identified. Bones: No acute fracture. Other: n/a IMPRESSION: 1. No evidence of significant trauma to the chest abdomen, or pelvis. 2. Small to moderate right pleural effusion and likely underlying atelectasis. Very mild nodularity in the superior segment of the left lower lobe could reflect mild pneumonia or pneumonitis. 3. Distended gallbladder with cholelithiasis but no definite evidence of acute cholecystitis. Could correlate with LFTs. Conclusions/Impression: CKD V with proteinuria/ ESRD Renal Transplant 2008 -No NSAIDs -Continue Tacrolimus and Mycophenolate -Continue Prednisone 10mg daily -HD initiated 07-27-22 due to ESRD -HD TTS Hyperkalemia -Renal diet Hypophosphatemia -Neutraphos prn HTN with CKD -Hydralazine IV prn -Continue Nifedipine ER 90mg BID DM II with CKD -RISS Moderate malnutrition with debility and anorexia -Continue Nepro -Continue MVI -PT as tolerated Anemia in chronic illness -Monitor H&H -Retacrit MWF CKD MBD -Continue Ergo -Continue Calcitriol Toxic Metabolic Encephalopathy suspicious for PRES -CT Head negative for acute change -Brain MRI reviewed CAD PAD/ Atherosclerosis of aorta Paroxysmal Afib complicated by bradycardia -Cardiology prn
[2022-08-04] MEDS: HYDRALAZINE HCL 20 MG/ML VIAL IV PRN (01:00)
[2022-08-04] MEDS: METOPROLOL TAR 25 MG TAB PO SCH ×2 (05:57→17:24)
[2022-08-04] MEDS: PANTOPRAZOLE 40MG TABLET PO SCH (05:57)
[2022-08-04] MEDS: INSULIN -REGULAR HUMAN 50 UNIT/0.5 ML ML SQ SCH ×3 (07:30→15:47)
[2022-08-04 08:46] VITALS: O2SAT 97
[2022-08-04] MEDS ORDERED: LACTOBACILLUS/ACIDOPHILUS TAB PO SCH (09:00)
[2022-08-04] MEDS: TACROLIMUS 1 MG PO SCH (09:00)
[2022-08-04] MEDS: ATORVASTATIN 10 MG TAB PO SCH (09:25)
[2022-08-04] MEDS: ESCITALOPRAM 20 MG TAB PO SCH (09:25)
[2022-08-04] MEDS: SEVELAMER CARBONATE 800 MG TABLET PO SCH (09:25)
[2022-08-04] MEDS: MULTIVITAMINS,THERAPEUT 1 TAB PO SCH (09:25)
[2022-08-04] MEDS: NIFEDIPINE XL 60 MG TABLET PO SCH (09:25)
[2022-08-04] MEDS: ASPIRIN 81 MG CHEWABLE TABLET PO SCH (09:25)
[2022-08-04] MEDS: predniSONE 10 MG TAB PO SCH (09:25)
[2022-08-04] MEDS: allopurinoL 100 MG TAB PO SCH (09:25)
[2022-08-04] MEDS: MYCOPHENOLATE MOFETIL 500 MG PO SCH (09:26)
[2022-08-04] MEDS: ACYCLOVIR 400 MG TABLET PO SCH (09:26)
[2022-08-04] MEDS: levETIRAcetam 500 MG in NA CHLORIDE 0.9% 100 ML IV SCH (09:28)
[2022-08-04] MEDS: NEPRO SHAKE 237 ML CAN PO SCH ×2 (09:28→12:03)
[2022-08-04] MEDS: HEPARIN 5000 UNIT/ML 1 ML VIAL SQ SCH (09:28)
--- NOTE | 2022-08-04 11:56 | P.PN ---
Nephrology note (S) Pt dialyzed yesterday without issues, no UF performed. Supine BP elevated this AM but orthostatic vitals checked and did drop with standing > 30 mmHg. Pt reports continued weakness but ambulating short distance within room (O) Vitals reviewed in the EMR General: NAD HEENT: Atraumatic, sclera anicteric,off NC Neck: Supple, RT IJ TDC Respiratory: b/l air entry on anterior auscultation, no rhonchi Cardiovascular: No edema, Regular rate/rhythm Gastrointestinal: Soft and benign, Non-distended, PD catheter with dressing in LLQ Musculoskeletal: Muscle mass loss Integumentary: No rashes Neurological: Awake, alert, interactive, non focal Laboratory Data (last 24 hrs) Reviewed in the EMR Conclusions/Impression: Hx of kidney transplant remotely ENMA on underlying transplant CKD IV, otherwise progressive it appears since 2014 (prior labs in the EMR) Significant proteinuria/macroalbuminuria noted on spot urine testing 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 Initiated dialysis in the setting of his low GFR state and hyperkalemia/acidosis over the weekend, last HD Tue. PD catheter inserted as anticipate need for on going [employer] with pt preference to return to home therapy/PD which he is familiar with in the past while he pursues w/u for second renal transplantation when stable. Since PD catheter inserted > 7 days ago, will have RN do dressing change today, protocol entered in nursing communication notes. Metab profiles stable, lytes ok, cont iHD Accelerated HTN, hypertensive emergency on admission now with orthostatic hypotension -Supine BP elevated but pt with continued orthostatic drops in BP, will not escalate BP meds further currently, UF has been limited on HD sessions AMS. Seizure unspecified Likely related to hypertensive PRES encephalopathy, improved, no recurrence Anemia 2nd to CKD, illness, inflammation -Cont to monitor H/H closely Hiram Oneil MD, JOSE
[2022-08-04] MEDS ORDERED: MUPIROCIN 2% OINT 22GM TUBE TOP ONE (12:00)
[2022-08-04 15:28] LABS: Absolute Lymphocytes (CBC) 0.2 K/uL (0.7-4.9); Hematocrit 31.9 % (39.6-49.0); Lymphocytes % 2.7 % (15.3-44.8); MCV 91.7 fL (80-100); MPV 8.9 fL (7.6-11.3); RBC Red Blood Cell Count 3.48 M/uL (4.33-5.43)
[2022-08-04 15:44] LABS: Potassium 4.5 mmol/L (3.5-5.1)
[2022-08-04 16:23] LABS: Blood Morphology Comment NOT SEEN (NOT SEEN); Platelet Estimate ADEQ; White Blood Cell Scan OK (OK)
[2022-08-04] MEDS: CALCITROL 0.25 MCG CAP PO SCH (16:25)
[2022-08-04] MEDS: EPOETIN ALFA 10,000 UNIT/ML VIAL SQ SCH (16:25)
[2022-08-04 17:07] VITALS: BP 150/64; TEMP 98.2
--- NOTE | 2022-08-04 20:24 | P.DS ---
Admission Date: 07/20/22 Discharge Date: 08/04/22 Disposition: ROUTINE DISCHARGE Discharge Condition: GOOD Reason for Admission: AMS Consultations: 1. Nephrology 2. General Surgery 3. Neurology 4. Cardiology Procedures: - 07/27/2022 - Placement of Right Internal Jugular Tunnelled HD Catheter - 07/27/2022 - Laparoscopic Placement of Tunnelled Peritoneal Dialysis Catheter Hospital Course: DIAGNOSES: # Deconditioning # Acute Toxic Metabolic Encephalopathy with Acute Seizure - concern for Posterior Reversible Encephalopathy Syndrome (PRES) - resolved # Hypertensive Emergency with Acute Encephalopathy - resolved # Acute Kidney Injury on Chronic Kidney Disease Stage IV of Transplanted Kidney now on Hemodialysis # Community Acquired Pneumonia # Type II Diabetes Mellitus # Gastroesophageal Reflux Disease # Subclinical Hypothyroidism HOSPITAL COURSE: Mr. Rg Benavides is a pleasant 66 year old male with a past medical history significant for chronic kidney disease stage IV s/p transplanted kidney, type 2 diabetes mellitus, hypertension, and gastroesophageal reflux disease who was admitted to the [facility] [place] on 07/20/2022 for nausea, vomiting, and altered mental status. He was admitted to the Medicine service. Upon further evaluation, his CT head revealed, "no acute intracranial abnormality." His MRI brain revealed, "no acute intracranial abnormality. Specifically, no evidence of acute infarct." Nephrology and Neurology were consulted and he was evaluated by Dr. Oneil and Dr. Arreola, respectively. Shortly after admission, he had a witnessed tonic- clonic seizure, raising the concern for hypertensive encephalopathy with possible posterior reversible encephalopathy syndrome (PRES). With the assistance of Nephrology, his blood pressure was gradually controlled, and he had no recurrent seizures during his hospitalization. Over the hospitalization, his renal function did not improve much, and our Nephrology team in conjuction with his transplant Nephrology team decided to proceed with dialysis. General Surgery was consulted and he was evaluated by Dr. Fischer. On 07/27/2022, he underwent placement of a right internal jugular tunnelled HD catheter and laparoscopic placement of a tunnelled peritoneal dialysis catheter. He did well with PT; however, it was decided that he would benefit from continued PT services as an outpatient at a [facility]. With the assistance of case management, he was accepted to [facility]. Of note, during his evaluation, his CT abdomen/pelvis was notable for a distended gallbladder. His right upper quadrant ultrasound revealed, "cholelithiasis without convincing sonographic evidence of acute cholecystitis. Trace pericholecystic fluid favored to represent ascites rather than as a result of inflammation. Right-sided pleural effusion." A HIDA scan was obtained, which revealed, "nonvisualization of the gallbladder. The study is indeterminate, as t his could be related to the somewhat prolonged duration since timing of last food intake, versus obstruction of the cystic duct. Normal tracer excretion in the small bowel, confirming patent extrahepatic bile ducts." Per Dr. Fischer, he did not feel that he had acute cholecystitis, and he recommended that he follow this up as an outpatient. On 08/04/2022, he was seen on morning rounds and deemed medically stable for discharge. He and his were given the opportunity to ask questions and reported no further questions. Furthermore, all questions were answered to the best of my ability. A copy of this discharge summary will be sent to the above providers to facilitate continuity of care. Today, I personally spent 20 minutes on his case, of which greater than 50% of the time was spent in patient education, counseling, and coordination of care as described above. - Physical Exam General: Alert, In no apparent distress, Oriented x3 HEENT: Atraumatic, Sclerae nonicteric Neck: JVD not distended Respiratory: Clear to auscultation without wheezes, rhonchi, or rales Cardiovascular: No edema, Regular rate/rhythm, No murmurs Gastrointestinal: Soft, Non-distended, No tenderness Musculoskeletal: No clubbing Integumentary: No rashes Neurological: Normal speech, Normal affect Vital Signs/Physical Exam: Temp Pulse Resp BP Pulse Ox 98.2 F 66 18 150/64 H 98 08/04/22 16:00 08/04/22 16:00 08/04/22 16:00 08/04/22 16:00 08/04/22 16:00 Laboratory Data at Discharge: WBC 8.90 K/uL (4.3-10.9) 08/04/22 14:44 Hgb 10.1 g/dL (13.6-17.9) L 08/04/22 14:44 Hct 31.9 % (39.6-49.0) L 08/04/22 14:44 Plt Count 264 K/uL (152-406) 08/04/22 14:44 PT 9.8 SECONDS (9.5-12.5) 07/27/22 05:40 INR 0.89 07/27/22 05:40 APTT 30.6 SECONDS (24.3-36.9) 07/27/22 05:40 Sodium 141 mmol/L (136-145) 08/04/22 14:44 Potassium 4.5 mmol/L (3.5-5.1) 08/04/22 14:44 BUN 19 mg/dL (7-18) H 08/04/22 14:44 Creatinine 2.45 mg/dL (0.70-1.30) H 08/04/22 14:44 Glucose 212 mg/dL (74-106) H 08/04/22 14:44 Uric Acid 11.0 mg/dL (3.5-7.2) H 07/27/22 05:40 Phosphorus 1.9 mg/dL (2.5-4.9) L 08/03/22 02:49 Magnesium 2.2 mg/dL (1.6-2.4) 08/03/22 02:49 Total Bilirubin 0.3 mg/dL (0.2-1.0) 07/29/22 06:07 AST 9 U/L (15-37) L 07/29/22 06:07 ALT < 10 U/L (16-61) L 07/29/22 06:07 Alkaline Phosphatase 73 U/L (45-117) 07/29/22 06:07 Lipase 43 U/L (73-393) L 07/20/22 09:10 Home Medications: Acyclovir 200 mg PO DAILY 07/21/22 Allopurinol 200 mg PO DAILY 07/21/22 Atorvastatin Calcium 10 mg PO DAILY 07/21/22 Furosemide [Lasix*] 40 mg PO DAILY 07/21/22 Insulin Aspart [Novolog Penfill] 3 ml SQ DAILY 07/21/22 Insulin Degludec [Tresiba Flextouch U-200] 80 units SQ DAILY 07/21/22 Metoprolol Tartrate [Lopressor] 150 mg PO BID 07/21/22 Mycophenolate Mofetil [Cellcept] 250 mg PO BID 07/21/22 predniSONE [Prednisone*] 5 mg PO DAILY 07/21/22 Aspirin Chewable [Aspirin Chewable*] 81 mg PO DAILY #30 tab.chew 07/31/22 Cefdinir [Cefdinir*] 300 mg PO BID #14 cap 07/31/22 Docusate [Colace Cap*] 100 mg PO BID #60 cap 07/31/22 Metoprolol Tartrate [Lopressor*] 25 mg PO BID 6AM 6PM #60 tab 07/31/22 Nepro Shake [Nepro*] 240 ml PO TID #90 can 07/31/22 Nifedipine Xl [Procardia XL*] 60 mg PO BID #60 tab 07/31/22 Pantoprazole [Protonix Tab*] 40 mg PO DAILYAC #30 tab 07/31/22 Sevelamer Carbonate [Renvela*] 800 mg PO TIDWM #90 tab 07/31/22 Vitamin D [Drisdol*] 50,000 unit PO Q7D@0900 #5 cap 07/31/22 levETIRAcetam [Keppra Tab] 500 mg PO BID #60 tab 07/31/22 New Medications: Aspirin Chewable [Aspirin Chewable*] 81 mg PO DAILY #30 tab.chew Cefdinir [Cefdinir*] 300 mg PO BID #14 cap Docusate [Colace Cap*] 100 mg PO BID #60 cap Vitamin D [Drisdol*] 50,000 unit PO Q7D@0900 #5 cap levETIRAcetam [Keppra Tab] 500 mg PO BID #60 tab Metoprolol Tartrate [Lopressor*] 25 mg PO BID 6AM 6PM #60 tab Nepro Shake [Nepro*] 240 ml PO TID #90 can Nifedipine Xl [Procardia XL*] 60 mg PO BID #60 tab Pantoprazole [Protonix Tab*] 40 mg PO DAILYAC #30 tab Sevelamer Carbonate [Renvela*] 800 mg PO TIDWM #90 tab Physician Discharge Instructions: -DC IV and DC home -Follow-up with PCP in 1 to 2 weeks -Follow-up with Nephrology for hemodialysis and Nephrology clinic appointment in 1 to 2 weeks -Follow-up with Cardiology, Dr. Parmar, in 1 to 2 weeks for atrial fibrillation -Follow-up with Neurology, Dr. Arreola, for seizure diagnosis in 2-4 weeks -Please call Dr. Joshua at [phone] if any questions regarding hospital stay -Please call nursing station at [phone] if any nursing or medication questions -Return to the emergency room if symptoms worsen Diet: Renal Activity: No lifting more than 10 lbs Followup: Rosbon Fischer MD [ACTIVE - CAN ADMIT] - (call to schedule follow up appointment) Alejandro Moore MD [Primary Care Provider] - (Call to schedule appoint ment) Hiram Oneil [ACTIVE - CAN ADMIT] - Carlos Arreola MD [ASSOCIATE-ACTIVE - CAN ADMIT] - Time spent managing pt's care (in minutes): 20
[2022-08-04] MEDS ORDERED: levETIRAcetam 500 MG TAB PO SCH (21:00)
== END 2022-08-04 19:25 | DRG 981 ==
LOC: ER 08:41 → ERHOLD 14:02 → 2ND 07-21 01:04 → 3RD-ICU 07-21 13:41 → 2ND 07-23 10:17
PROVIDERS: ADMIT Internal Medicine; ATTEND Internal Medicine
PROC: 02HV33Z Insertion of Infusion Device into Superior Vena Cava, Percutaneous Approach (ICD-10-PCS; 2022-07-27)
PROC: 3E1M39Z Irrigation of Peritoneal Cavity using Dialysate, Percutaneous Approach (ICD-10-PCS; 2022-07-27)
PROC: 0WHG03Z Insertion of Infusion Device into Peritoneal Cavity, Open Approach (ICD-10-PCS; principal; 2022-07-27 10:45)
PROC: 0JH63XZ Insertion of Tunneled Vascular Access Device into Chest Subcutaneous Tissue and Fascia, Percutaneous Approach (ICD-10-PCS; 2022-07-27 10:45)
DX: J18.9 Pneumonia, unspecified organism (principal); G92.8 Other toxic encephalopathy; I67.83 Posterior reversible encephalopathy syndrome; Z94.0 Kidney transplant status; I31.39 Other pericardial effusion (noninflammatory); I16.1 Hypertensive emergency; N17.9 Acute kidney failure, unspecified; E87.20 Acidosis, unspecified; E44.0 Moderate protein-calorie malnutrition; N18.4 Chronic kidney disease, stage 4 (severe); G40.409 Other generalized epilepsy and epileptic syndromes, not intractable, without status epilepticus; E86.0 Dehydration; I12.9 Hypertensive chronic kidney disease with stage 1 through stage 4 chronic kidney disease, or unspecified chronic kidney disease; E11.22 Type 2 diabetes mellitus with diabetic chronic kidney disease; E11.51 Type 2 diabetes mellitus with diabetic peripheral angiopathy without gangrene; D63.1 Anemia in chronic kidney disease; E78.5 Hyperlipidemia, unspecified; I48.0 Paroxysmal atrial fibrillation; M10.9 Gout, unspecified; E87.5 Hyperkalemia; I95.1 Orthostatic hypotension; E03.8 Other specified hypothyroidism; K21.9 Gastro-esophageal reflux disease without esophagitis; E83.39 Other disorders of phosphorus metabolism; K80.20 Calculus of gallbladder without cholecystitis without obstruction; I25.10 Atherosclerotic heart disease of native coronary artery without angina pectoris; R00.1 Bradycardia, unspecified; Z88.0 Allergy status to penicillin; Z90.5 Acquired absence of kidney; Z88.1 Allergy status to other antibiotic agents; Z79.4 Long term (current) use of insulin; Z79.52 Long term (current) use of systemic steroids; Z79.01 Long term (current) use of anticoagulants; Z79.899 Other long term (current) drug therapy; Z85.528 Personal history of other malignant neoplasm of kidney; Z20.822 Contact with and (suspected) exposure to COVID-19
CPT/HCPCS: 0240U; 36415; 70450; 70551; 71045; 71250; 74018; 74176; 76000; 76705; 76770; 78226; 80048; 80053; 80197; 81001; 82043; 82140; 82550; 82570; 82607; 82805; 82947; 83010; 83540; 83615; 83690; 83735; 83880; 84100; 84145; 84156; 84439; 84443; 84550; 85014; 85018; 85025; 85044; 85610; 85730; 86038; 86160; 86704; 86706; 86803; 87040; 87045; 87046; 87086; 87088; 87177; 87209; 87340; 89055; 90935; 93005; 94640; 95819; 96361; 96365; 96366; 96367; 96375; 97110; 97116; 97161; 97530; 99285; A4216; A9537; C1752; C9113; J0360; J0456; J1100; J1642; J1644; J1815; J1940; J1953; J2001; J2250; J2405; J2704; J3010; J7030; J7040; J7050; J7120; J7512; J7613; J7644; U0003

== ENCOUNTER 2022-11-03 07:27 | Day surgery (SDC) | payer OTHER ==
[2022-11-02 14:26] LABS: Potassium 3.4 mEq/L (3.5-5.1)
[2022-11-03] MEDS ORDERED: NA CHLORIDE 0.9% 500 ML ONE (07:59)
[2022-11-03] MEDS ORDERED: CEFAZOLIN SODIUM 2 GM/VIAL ONE (07:59)
[2022-11-03] MEDS ORDERED: LIDOCAINE 1% MPF 30 ML VIAL ONE (08:32)
[2022-11-03] MEDS ORDERED: propofoL 200 MG/20 ML VIAL IV ONE (08:32)
[2022-11-03] MEDS ORDERED: LIDOCAINE 2% MPF 5 ML VIAL ONE (08:32)
[2022-11-03] MEDS ORDERED: MIDAZOLAM HCL 2 MG/2 ML INJ ONE (08:32)
[2022-11-03] MEDS ORDERED: BUPIVACAINE 0.25% PF 30 ML VIAL ONE (08:32)
[2022-11-03] MEDS ORDERED: LIDOCAINE HCL/EPINEPHRINE 20 ML MDV ONE (08:34)
--- NOTE | 2022-11-03 08:58 | P.OP ---
Preoperative diagnosis: Attention to Tunnelled HD Catheter Postoperative diagnosis: Attention to Tunnelled HD Catheter Primary procedure: Removal of RIGHT IJ Tunnelled HD Catheter Anesthesia: MAC Local Estimated blood loss: < 5cc Specimen: Cath for ID only Findings: tunnelled HD cath, no infection noted Transferred to: Recovery Room Condition: Good
--- NOTE | 2022-11-03 09:25 | OP ---
Date of Procedure: 11/03/2022 Surgeon: Robson Fischer MD, Preoperative Diagnosis: Attention to tunneled hemodialysis catheter. Postoperative Diagnosis: Attention to tunneled hemodialysis catheter. Procedure Performed: Removal of the right internal jugular tunneled hemodialysis catheter. Anesthesia: MAC plus local with 0.25% Marcaine. Estimated Blood Loss: 5 cc. Specimen: Catheter for ID only. Findings: Tunneled hemodialysis catheter noted in the right internal jugular vein position. No infection noted. Disposition: The patient was transferred to the recovery room in good condition. Procedure In Detail: After informed consent was obtained, the patient was brought to the operating room, prepped and draped in the usual sterile fashion after adequate anesthesia was achieved. The patient was placed in steep Trendelenburg position. I then removed sutures previously placed in the right chest wall. I made a small moi incision overlying the insertion site and dilated the tract to expose the hemodialysis cuff catheter and the cuff was exposed to the catheter, which was placed into the right internal jugular vein. I circumferentially dissected the catheter cuff free of all surrounding tissues, ultimately allowing for its mobilization. At this point, I held pressure at the insertion site and at the exit site removing the catheter, sent off for ID only and pathologic examination. The area was then irrigated copiously after pressure was held for approximately 5 minutes. There was no bleeding or hemostatic maneuvers were required. I irrigated the exit site of the catheter, closed with interrupted 2-0 nylon suture, and a sterile dressing placed over top. The patient remained in steep Trendelenburg position and was put in the head up position at the end of the case. There were no hematomas at this point. All counts were correct at the end of the case. SERAFIN/KAREN Voice ID: [id number] Report ID: [id number]
[2022-11-03 10:40] VITALS: BP 193/79; TEMP 97; O2SAT 100
== END 2022-11-03 10:05 | disposition home or self-care (01) ==
LOC: OR 07:27
PROVIDERS: ATTEND Surgery
PROC: 0WPG03Z Removal of Infusion Device from Peritoneal Cavity, Open Approach (ICD-10-PCS; principal; 2022-11-03 08:15)
DX: Z49.02 Encounter for fitting and adjustment of peritoneal dialysis catheter (principal); N18.6 End stage renal disease
CPT/HCPCS: 80048; 36415; 88300; 36590; J2704; J2001; J7040; J2250

== ENCOUNTER → 2023-08-10 | Emergency (ER) | payer OTHER ==
[~2023-08-10] MED LIST: ALBUMIN HUMAN 25% 100 ML IV ONE; CEFTRIAXONE 1000 MG/VIAL ONE; METOCLOPRAMIDE 10 MG/2mL INJ ONE; METRONIDAZOLE 500mg IVPB 500 MG/100 ML BAG IV ONE; NA CHLORIDE 0.9% 50 ML ONE; POTASSIUM CL SA 10 MEQ TAB PO ONE
[2023-08-10 23:56] LABS: Absolute Lymphocytes (CBC) 0.2 K/uL (0.7-4.9); Basophils % 0.3 % (0-1.3); Eosinophils % 0.2 % (0-4.4); Hematocrit 31.6 % (39.6-49.0); Hemoglobin 10.5 g/dL (13.6-17.9); Lymphocytes % 3.1 % (15.3-44.8); MCV 87.8 fL (80-100); MPV 9.1 fL (7.6-11.3); Platelets 214 thou/uL (152-406)
[2023-08-11 00:02] LABS: Protime INR 1.47
[2023-08-11 00:03] LABS: SARS-CoV-2 Antigen Rapid Res Negative (Negative)
[2023-08-11 00:22] LABS: ALT/SGPT < 10 U/L (16-61); AST/SGOT 7 U/L (15-37); Albumin 1.5 g/dL (3.4-5.0); Albumin/Globulin Ratio 0.5 (1.1-1.8); Alkaline Phosphatase 85 U/L (45-117); Anion Gap 11.4 mEq/L (5.0-15.0); BUN Blood Urea Nitrogen 21 mg/dL (7-18); Bicarbonate 30 mEq/L (21-32); Bilirubin Direct 0.2 mg/dL (0-0.2); Bilirubin Indirect, Calculated 0.2 mg/dL (0.2-0.8); Bilirubin Total 0.4 mg/dL (0.2-1.0); Creatine Phosphokinase 50 U/L (39-308); Glomerular Filtration Rate 9 ml/min (=/>90); Glucose Level 194 mg/dL (74-106); Lipase < 6 U/L (13-75); Magnesium 1.7 mg/dL (1.6-2.4); NT PRO-BNP 162810 pg/mL (<125); Protein, Total 4.5 g/dL (6.4-8.2); Sodium Level 139 mEq/L (136-145)
[2023-08-11 00:23] LABS: Potassium 2.4 mEq/L (3.5-5.1); Troponin High Sensitivity 192.7 pg/mL (<58.9)
--- NOTE | 2023-08-11 01:06 | ER ---
Nurse's Notes [facility] Name: Rg Benavides Jr Age: 67 yrs Sex: Male : 1955 Arrival Date: 08/10/2023 Time: 21:12 Bed 6 Private MD: Diagnosis: Pleural effusion, not elsewhere classified;Generalized weakness, gastroenteritis, NSTEMI, congestive heart failure, end-stage renal disease on peritoneal dialysis, large right pleural effusion Presentation: 08/09 22:00 Chief complaint: Spouse and/or significant other states: Nausea, Vomiting, and weakness jw7 for the last two days. 22:00 Coronavirus screen: At this time, the client does not indicate any symptoms associated jw7 with coronavirus-19. Ebola Screen: No symptoms or risks identified at this time. Initial Sepsis Screen: Does the patient meet any 2 criteria? No. Patient's initial sepsis screen is negative. Does the patient have a suspected source of infection? No. Patient's initial sepsis screen is negative. Risk Assessment: Do you want to hurt yourself or someone else? Patient reports no desire to harm self or others. Onset of symptoms was August 08, 2023. Care prior to arrival: Medication(s) given: Normal saline infusion, 400 mL zofran 4 mg, IV initiated. 20 GA, in the right forearm, Glucose check: 201. 22:00 Method Of Arrival: EMS: [facility] 22:00 Acuity: EVARISTO 3 jw7 Triage Assessment: 22:00 General: Appears in no apparent distress. comfortable, ill, Behavior is calm, jw7 cooperative, quiet. Pain: Denies pain. EENT: No deficits noted. No signs and/or symptoms were reported regarding the EENT system. Neuro: Level of Consciousness is awake, alert, obeys commands, Oriented to person, place, time, situation. 22:00 Cardiovascular: Heart tones S1 S2 present Capillary refill < 3 seconds Clubbing of nail jw7 beds is absent JVD is absent Patient's skin is warm and dry. Respiratory: Airway is patent Trachea midline Respiratory effort is even, unlabored, Respiratory pattern is regular, symmetrical, Breath sounds are clear bilaterally. GI: Abdomen is flat, non-distended, Bowel sounds present X 4 quads. Abd is soft and non tender X 4 quads. : No deficits noted. No signs and/or symptoms were reported regarding the genitourinary system. Derm: Skin is intact, is healthy with good turgor, Skin is dry, Skin is normal, Skin temperature is warm. Musculoskeletal: Circulation, motion, and sensation intact. Range of motion: intact in all extremities, Parent/caregiver report the patient having generalized weakness. Historical: - Allergies: 22:18 PENICILLINS; jw7 22:18 Vancomycin; jw7 22:18 azithromycin; jw7 - Home Meds: 22:18 allopurinol 100 mg Oral tab 1 tab daily [Active]; atorvastatin 10 mg Oral tab 1 tab jw7 daily [Active]; furosemide 40 mg Oral tab 1 tab 2 times per day [Active]; mycophenolate 250 MG 1 tab twice a day [Active]; tresiba [Active]; prednisone 5 mg Oral tab 1 tab daily [Active]; Zofran 4 MG Oral 1 tab daily [Active]; nifedipine 30 mg oral Tablet, Extended Release 24 hr 1 tab daily [Active]; Eliquis 5 mg oral tablet 1 tab daily [Active]; losartan 50 mg oral tablet 1 tab daily [Active]; escitalopram oxalate 5 mg oral tablet 1 tab daily [Active]; metoprolol tartrate 50 mg Oral tablet 1 tab 2 times per day [Active]; Novolog Sub-Q [Active]; - PMHx: 22:18 diabetes mellitus; Hyperlipidemia; Hypertensive disorder; Atrial fibrillation; jw7 Dialysis; Renal Failure; - PSHx: 22:18 right kidney removal; Dialysis Port (right kidney removal); 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 - Social history:: Smoking status: Patient denies any tobacco usage or history of. Patient/guardian denies using alcohol, street drugs, IV drugs. - Family history:: not pertinent. - History obtained from: spouse. Screenin:00 [facility] ED Fall Risk Assessment (Adult) History of falling in the last 3 months, jw7 including since admission Yes- single mechanical fall (1 pt) Confusion or Disorientation No (0 pts) Intoxicated or Sedated No (0 pts) Impaired Gait Yes (1 pt) Mobility Assist Device Used Yes (1 pt) Altered Elimination No (0 pt) Score/Fall Risk Level 3 or more points = High Risk Oriented to surroundings, Maintained a safe environment, Educated pt \T\ family on fall prevention, incl call for assistance when getting out of bed, Assessed \T\ reinforced patient's understanding of fall precautions, Hourly rounding (assess needs \T\ fall precautionary measures) done, Used ambulatory aids as needed (educated on \T\ assisted with), Used gait belt as appropriate. Abuse screen: Denies threats or abuse. Denies injuries from another. Nutritional screening: No deficits noted. Tuberculosis screening: No symptoms or risk factors identified. Assessment: 22:00 General: See Triage Assessment. jw7 23:00 Reassessment: Patient appears in no apparent distress at this time. No changes from 7 previously documented assessment. Patient and/or family updated on plan of care and expected duration. Pain level reassessed. Patient is alert, oriented x 3, equal unlabored respirations, skin warm/dry/pink. 08/10 00:00 Reassessment: Patient appears in no apparent distress at this time. No changes from jw7 previously documented assessment. Patient and/or family updated on plan of care and expected duration. Pain level reassessed. Patient is alert, oriented x 3, equal unlabored respirations, skin warm/dry/pink. 01:00 Reassessment: Patient appears in no apparent distress at this time. No changes from jw7 previously documented assessment. Patient and/or family updated on plan of care and expected duration. Pain level reassessed. Patient is alert, oriented x 3, equal unlabored respirations, skin warm/dry/pink. 02:00 Reassessment: Patient appears in no apparent distress at this time. No changes from jw7 previously documented assessment. Patient and/or family updated on plan of care and expected duration. Pain level reassessed. Patient is alert, oriented x 3, equal unlabored respirations, skin warm/dry/pink. 03:00 Reassessment: Patient appears in no apparent distress at this time. No changes from jw7 previously documented assessment. Patient and/or family updated on plan of care and expected duration. Pain level reassessed. Patient is alert, oriented x 3, equal unlabored respirations, skin warm/dry/pink. 04:05 Reassessment: Patient appears in no apparent distress at this time. No changes from jw7 previously documented assessment. Patient and/or family updated on plan of care and expected duration. Pain level reassessed. Patient is alert, oriented x 3, equal unlabored respirations, skin warm/dry/pink. Vital Signs: 08/09 22:00 BP 104 / 54; Pulse 64; Resp 17 S; Temp 97.7(O); Pulse Ox 93% on R/A; Weight 68.95 kg; jw7 Height 5 ft. 9 in. ; Pain 0/10; 23:30 BP 139 / 56; Pulse 62; Resp 18 S; Pulse Ox 96% on R/A; jw7 08/10 00:30 BP 125 / 59; Pulse 57; Resp 19 S; Pulse Ox 96% on R/A; jw7 01:30 BP 119 / 60; Pulse 62; Resp 21 S; Pulse Ox 94% on R/A; jw7 02:30 BP 98 / 58; Pulse 69; Resp 20 S; Pulse Ox 96% on R/A; jw7 03:30 BP 111 / 47; Pulse 64; Resp 14 S; Pulse Ox 95% on R/A; jw7 03 22:00 Body Mass Index 22.45 (68.95 kg, 175.26 cm) jw7 08/09 22:00 Pain Scale: Adult jw7 Roselle Coma Score: 08/09 23:26 Eye Response: spontaneous(4). Motor Response: obeys commands(6). Verbal Response: sp4 oriented(5). Total: 15. ED Course: 21:58 Patient arrived in ED. wm 21:59 Jonathan Stephenson MD is Attending Physician. sp4 22:00 Patient has correct armband on for positive identification. Placed in gown. Bed in low jw7 position. Call light in reach. Side rails up X 1. 22:00 Arm band placed on. jw7 22:00 Client placed on continuous cardiac and pulse oximetry monitoring. NIBP monitoring jw7 applied. panel monitor on. 22:00 Door closed. Warm blanket given. Family accompanied patient. jw7 22:00 Provided Education on: use of call light. jw7 22:00 Maintain EMS IV. Dressing intact. Good blood return noted. Site clean \T\ dry. Gauge \T\ jw 7 site: 20 G RFA. 22:18 Triage completed. jw7 22:30 RN/MOTION PICTURE SET WORKER escort patient out of department to CT scan. jw7 22:42 CT Chest Abdomen Pelvis W/O Contrast In Process Unspecified. EDMS 22:42 CT Head Brain wo Cont In Process Unspecified. EDMS 03/07 00:47 US Abdomen Limited In Process Unspecified. EDMS 01:[address] [facility], spoke with Saima Gaspar. wm 02:00 One-on-one care X 15 minutes. jw7 03:07 Pt [address] transfer to [facility] Rm: [id number] by Stella Bean \T\ 0244 per Saima Gaspar. wm 03:39 EMS accepted Pt for transport with an ETA \T\ 0400. wm 04:08 Patient transferred, IV remains in place. jw7 04:08 No provider procedures requiring assistance completed. jw7 Administered Medications: 00:47 Drug: Rocephin - Rocephin (cefTRIAXone) IVPB 1 grams IVPB once over 30 mins; (mix in 50 jw7 mL NS) Route: IVPB; Infused Over: 30 mins; Site: right forearm; 01:38 Follow up: Response: No adverse reaction; IV Status: Completed infusion; IV Intake: [id number] 00:47 Drug: Potassium Chloride PO 40 mEq PO once Route: PO; jw7 01:38 Follow up: Response: No adverse reaction jw7 01:40 Drug: metroNIDAZOLE IVPB 500 mg 100 ml IVPB at 200 ml/hr once over 30 mins Volume: 100 jw7 ml; Route: IVPB; Rate: 200 ml/hr; Infused Over: 30 mins; Site: right forearm; 04:05 Follow up: Response: No adverse reaction; IV Status: Completed infusion; IV Intake: jw7 100ml 02:07 Drug: metoCLOPramide IVP 10 mg IVP once; over 1 to 2 minutes Route: IVP; Site: right rv antecubital; 04:04 Follow up: Response: No adverse reaction; Marked relief of symptoms; Nausea is decreasedjw7 02:38 Drug: Albumin IVPB 25 grams 100 ml IVPB once; (Note: Albumin 25% concentration) Volume: jw7 100 ml; Route: IVPB; Site: right forearm; 04:05 Follow up: Response: No adverse reaction; IV Status: Completed infusion; IV Intake: jw7 100ml 04:05 Not Given (Patient Refused): ondansetron 4 mg IVP once; over 2 minutes jw7 Medication: 04:08 VIS not applicable for this client. jw7 Intake: 01:38 IV: 50ml; Total: 50ml. jw7 04:05 IV: 100ml; Total: 150ml. jw7 04:05 IV: 100ml; Total: 250ml. jw7 Outcome: 01:05 ER care complete, transfer ordered by sp4 04:08 [place]red by ground [facility] [place] [facility] 04:08 Condition: stable 04:08 Instructed on the need for admit, Demonstrated understanding of instructions, 04:09 Patient left the ED. jw7 Signatures: Dispatcher [employer] EDMS Leonardo Lassiter, RN Alyx Mendoza Jodi, RN RN jw7 Potepalov, Sergey, MD MD sp4 Corrections: (The following items were deleted from the chart) 04:08 02:00 Patient admitted, IV remains in place. jw7 jw7
--- NOTE | 2023-08-11 01:06 | EDPHYS ---
Physician Documentation [facility] Name: Rg Benavides Jr Age: 67 yrs Sex: Male : 1955 Arrival Date: 08/10/2023 Time: 21:12 Bed 6 Private MD: ED Physician Jonathan Stpehenson HPI: 08/09 22:15 This 67 yrs old Male presents to ER via Unassigned with complaints of General sp4 Weakness. 23:12 Male on peritoneal dialysis, history of diabetes end-stage renal disease hyperlipidemia sp4 anemia atrial fibrillation. Presents with EMS for acute onset of generalized weakness this evening. Patient appears pale on presentation. Patient reports he is undergoing daily peritoneal dialysis at home. He is currently being treated for bilateral lower extremity heel ulcers.. Patient reported associated vomiting at home. Denied bloody emesis. Patient's screen tacker is Dr. Roland in [place] . 23:27 And is currently undergoing treatment for right foot infection.. Patient has peritoneal sp4 dialysis catheter. He is no longer on hemodialysis. Patient's medications include Lopressor, losartan, Colace, Procardia, CellCept, atorvastatin, latanoprost, there is no, enteric-coated aspirin, acyclovir, Keppra. Patient takes mycophenolate or CellCept 250 mg twice a day and prednisone 5 mg daily but he is kidney transplant is failing and patient was taken off tacrolimus 3 months ago.. Historical: - Allergies: 22:18 PENICILLINS; jw7 22:18 Vancomycin; jw7 22:18 azithromycin; jw7 - Home Meds: 22:18 allopurinol 100 mg Oral tab 1 tab daily [Active]; atorvastatin 10 mg Oral tab 1 tab jw7 daily [Active]; furosemide 40 mg Oral tab 1 tab 2 times per day [Active]; mycophenolate 250 MG 1 tab twice a day [Active]; tresiba [Active]; prednisone 5 mg Oral tab 1 tab daily [Active]; Zofran 4 MG Oral 1 tab daily [Active]; nifedipine 30 mg oral Tablet, Extended Release 24 hr 1 tab daily [Active]; Eliquis 5 mg oral tablet 1 tab daily [Active]; losartan 50 mg oral tablet 1 tab daily [Active]; escitalopram oxalate 5 mg oral tablet 1 tab daily [Active]; metoprolol tartrate 50 mg Oral tablet 1 tab 2 times per day [Active]; Novolog Sub-Q [Active]; - PMHx: 22:18 diabetes mellitus; Hyperlipidemia; Hypertensive disorder; Atrial fibrillation; jw7 Dialysis; Renal Failure; - PSHx: 22:18 right kidney removal; Dialysis Port (right kidney removal); 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 - Social history:: Smoking status: Patient denies any tobacco usage or history of. Patient/guardian denies using alcohol, street drugs, IV drugs. - Family history:: not pertinent. - History obtained from: spouse. ROS: 23:28 Constitutional: Negative for fever, chills, and weight loss, positive generalized sp4 weakness and vomiting at home. 23:28 All other systems are negative, Exam: 23:26 ECG was reviewed by the Attending Physician. EKG at 2251 atrial fibrillation at the sp4 rate of 65 23:28 Constitutional: This is a well developed, well nourished patient who is awake, alert, sp4 and in no acute distress. Patient is physically debilitated male who appears pale but nontoxic. Patient has left lower abdominal peritoneal dialysis catheter generalized physical debility. Physical deconditioning.. Head/Face: Normocephalic, atraumatic. Eyes: Pupils equal round and reactive to light, extra-ocular motions intact. Lids and lashes normal. Conjunctiva and sclera are not injected. Cornea within normal limits. Periorbital areas with no swelling, redness, or edema. ENT: Nares patent. No nasal discharge, no septal abnormalities noted. Tympanic membranes are normal and external auditory canals are clear. Oropharynx with no redness, swelling, or masses, exudates, or evidence of obstruction, uvula midline. Mucous membranes moist. Neck: Trachea midline, no thyromegaly or masses palpated, and no cervical lymphadenopathy. Supple, full range of motion without nuchal rigidity, or vertebral point tenderness. Chest/axilla: Normal chest wall appearance and motion. Nontender with no deformity. No lesions are appreciated. Cardiovascular: Regular rate and rhythm with a normal S1 and S2. No gallops, murmurs, or rubs. Normal PMI, no JVD. No pulse deficits. Respiratory: Lungs have equal breath sounds bilaterally, clear to auscultation and percussion. No rales, rhonchi or wheezes noted. No increased work of breathing, no retractions or nasal flaring. Abdomen/GI: Soft, with normal bowel sounds. No distension or tympany. No guarding or rebound. No evidence of tenderness throughout. Back: No spinal tenderness. No costovertebral tenderness. Skin: Warm, dry with normal turgor. Normal color with no rashes, no lesions, and no evidence of cellulitis. MS/ Extremity: Pulses equal, no cyanosis. Neurovascular intact. Full, normal range of motion. There is right foot with dressing with signs of chronic peripheral arterial disease. Neuro: Awake and alert, GCS 15, oriented to person, place, time, and situation. Cranial nerves II-XII grossly intact. Motor strength 5/5 in all extremities. Sensory grossly intact. Psych: Awake, alert, with orientation to person, place and time. Behavior, mood, and affect are within normal limits Vital Signs: 22:00 BP 104 / 54; Pulse 64; Resp 17 S; Temp 97.7(O); Pulse Ox 93% on R/A; Weight 68.95 kg; [facility] Height 5 ft. 9 in. ; Pain 0/10; 23:30 BP 139 / 56; Pulse 62; Resp 18 S; Pulse Ox 96% on R/A; [facility] 0307 00:30 BP 125 / 59; Pulse 57; Resp 19 S; Pulse Ox 96% on R/A; [facility] 01:30 BP 119 / 60; Pulse 62; Resp 21 S; Pulse Ox 94% on R/A; [facility] 02:30 BP 98 / 58; Pulse 69; Resp 20 S; Pulse Ox 96% on R/A; [facility] 03:30 BP 111 / 47; Pulse 64; Resp 14 S; Pulse Ox 95% on R/A; [facility] 08/09 22:00 Body Mass Index 22.45 (68.95 kg, 175.26 cm) [facility] 08/09 22:00 Pain Scale: Adult [facility] Gonzalo Coma Score: 08/09 23:26 Eye Response: spontaneous(4). Motor Response: obeys commands(6). Verbal Response: sp4 oriented(5). Total: 15. MDM: 22:00 Patient medically screened. sp4 08/10 00:20 ED course: PROCEDURE: 5 mm axial images were obtained along with 3 mm reformatted sp4 coronal and sagittal images. This exam was performed according to our departmental dose-optimization program, which includes automated exposure control, adjustment of the mA and/or kV according to patient size and/or use of iterative reconstruction technique. COMPARISON: 07/24/2022. FINDINGS: No acute abnormal extracerebral fluid collections are demonstrated. The cortical sulci, ventricles, and cisterns are within normal limits. There are mild chronic bilateral periventricular microangiopathic white matter changes. There is atherosclerosis about the cavernous portions of the internal carotid arteries. There are no areas of altered attenuation identified to suggest acute hemorrhage, infarction, or mass lesion. The visualized portions of the paranasal sinuses and mastoid air cells are clear. IMPRESSION: 1. No acute intracranial abnormalities. . ED course: CT chest , abdomen , pelvis - IMPRESSION: 1. Large right pleural effusion which is increased in size from prior study. There is severe compressive atelectasis of the right lung field. 2. Coronary arterial disease. 3. Findings suggestive of gastroenteritis. 4. Moderate amount of peritoneal ascites. 5. Fracture of the left 11th rib. 6. Moderate severe distention of the gallbladder with evidence of cholelithiasis. 7. Large pericardial effusion was has increased in size.. Electronically signed by: Ned Cohen MD 08/10/2023 11:36 P. 01:05 Differential Diagnosis altered mental status, sepsis, flu. Data reviewed: vital signs, sp4 nurses notes, EMS record, lab test result(s), cardiac enzymes, CBC, electrolytes, hepatic panel, EKG, radiologic studies, CT scan. Consideration of Admission/Observation Patient was admitted/placed on observation. Escalation of care including admission/observation considered. Management of patient was discussed with the following: Hospitalist: [facility]. 08/09 21:59 Order name: BMP; Complete Time: 00:53 sp4 08/09 21:59 Order name: Blood Culture Adult (2) sp4 08/09 21:59 Order name: CBC with Diff; Complete Time: 01:59 sp4 08/09 21:59 Order name: CPK; Complete Time: 00:53 sp4 08/09 21:59 Order name: Hepatic Function; Complete Time: 00:53 sp4 08/09 21:59 Order name: Lipase; Complete Time: 00:53 sp4 08/09 21:59 Order name: Magnesium; Complete Time: 00:53 sp4 08/09 21:59 Order name: NT PRO-BNP; Complete Time: 00:53 sp4 08/09 21:59 Order name: PT-INR; Complete Time: 00:06 sp4 08/09 21:59 Order name: Ptt, Activated; Complete Time: 00:06 sp4 08/09 21:59 Order name: Troponin HS; Complete Time: 00:53 sp4 08/09 21:59 Order name: Type And Screen; Complete Time: 01:59 sp4 08/09 22:16 Order name: SARS RAPID; Complete Time: 00:06 sp4 08/09 22:16 Order name: Influenza Screen (a \T\ B); Complete Time: 00:53 sp4 08/09 22:16 Order name: Lactate w/ 2H reflex if indic.; Complete Time: 00:20 sp4 08/10 00:04 Order name: Manual Differential; Complete Time: 01:59 EDMS 08/10 03:24 Order name: Lactate Sepsis 2 HR Follow-up EDMS 08/09 22:16 Order name: CT Chest Abdomen Pelvis W/O Contrast sp4 08/09 22:16 Order name: CT Head Brain wo Cont sp4 08/10 00:23 Order name: US Abdomen Limited sp4 08/09 21:59 Order name: EKG; Complete Time: 22:00 sp4 08/09 21:59 Order name: Cardiac monitoring; Complete Time: 22:32 sp4 08/09 21:59 Order name: EKG - Nurse/Tech; Complete Time: 23:20 sp4 08/09 21:59 Order name: IV Saline Lock; Complete Time: 22:32 sp4 08/09 21:59 Order name: Labs collected and sent; Complete Time: 23:20 sp4 08/09 21:59 Order name: O2 Per Protocol; Complete Time: 22:31 sp4 08/09 21:59 Order name: O2 Sat Monitoring; Complete Time: 22:31 sp4 08/09 23:25 Order name: Wound Care; Complete Time: 23:38 sp4 EC/06 23:26 Rate is 65 beats/min. Rhythm is irregularly irregular, A fib. QRS [place] is Normal. QRS sp4 interval is normal. QT interval is prolonged. No ST changes noted. Clinical impression: No evidence of ischemia. Interpreted by me. Reviewed by me. Administered Medications: 08/10 00:47 Drug: Rocephin - Rocephin (cefTRIAXone) IVPB 1 grams IVPB once over 30 mins; (mix in 50 jw7 mL NS) Route: IVPB; Infused Over: 30 mins; Site: right forearm; 01:38 Follow up: Response: No adverse reaction; IV Status: Completed infusion; IV Intake: [id number] 00:47 Drug: Potassium Chloride PO 40 mEq PO once Route: PO; jw7 01:38 Follow up: Response: No adverse reaction 7 01:40 Drug: metroNIDAZOLE IVPB 500 mg 100 ml IVPB at 200 ml/hr once over 30 mins Volume: 100 jw7 ml; Route: IVPB; Rate: 200 ml/hr; Infused Over: 30 mins; Site: right forearm; 04:05 Follow up: Response: No adverse reaction; IV Status: Completed infusion; IV Intake: jw7 100ml 02:07 Drug: metoCLOPramide IVP 10 mg IVP once; over 1 to 2 minutes Route: IVP; Site: right rv antecubital; 04:04 Follow up: Response: No adverse reaction; Marked relief of symptoms; Nausea is decreasedjw7 02:38 Drug: Albumin IVPB 25 grams 100 ml IVPB once; (Note: Albumin 25% concentration) Volume: jw7 100 ml; Route: IVPB; Site: right forearm; 04:05 Follow up: Response: No adverse reaction; IV Status: Completed infusion; IV Intake: jw7 100ml 04:05 Not Given (Patient Refused): ondansetron 4 mg IVP once; over 2 minutes jw7 Disposition Summary: 08/11/23 01:05 Transfer Ordered Notes: Transfer Location: [facility] sp4 Reason: Higher level of care sp4 Condition: Stable sp4 Problem: new sp4 Symptoms: have improved sp4 Accepting Physician: [facility] hospitalist(08/11/23 04:09) jw7 Diagnosis - Pleural effusion, not elsewhere classified sp4 - Generalized weakness, gastroenteritis, NSTEMI, congestive heart failure, end-stage sp4 renal disease on peritoneal dialysis, large right pleural effusion Forms: - Medication Reconciliation Form sp4 - SBAR form sp4 Signatures: Dispatcher [employer] Leonardo Dixon RN RN Marilyn Dueñas RN RN jw7 Jonathan Stephenson MD MD sp4 Corrections: (The following items were deleted from the chart) 01:57 03/06 23:27 Patient has peritoneal dialysis catheter. He is no longer on hemodialysis. sp4 Patient's medications include Lopressor, losartan, Colace, tacrolimus, Procardia, CellCept, atorvastatin, latanoprost, there is no, enteric-coated aspirin, acyclovir, Keppra,. sp4 08/10 04:09 01:05 [facility] jw[facility]
[2023-08-11 01:50] LABS: Band Neutrophils 2 % (0-1); Eosinophils 1 % (0-3)
[2023-08-11 01:51] LABS: Blood Morphology Comment NOT SEEN (NOT SEEN); Platelet Estimate ADEQ
[2023-08-11 04:33] VITALS: TEMP 97.7
[2023-08-11 04:54] VITALS: BP 111/47; O2SAT 95
--- NOTE | 2023-08-11 10:41 | RAD REPORT ---
EXAM DESCRIPTION: CT - Chest Abd Pelvis Wo Con - 08/11/2023 3:44 am CLINICAL HISTORY: Shortness of breath. Nausea and vomiting. Weakness. TECHNIQUE: CT scan of the chest, abdomen and pelvis was performed with intravenous contrast. 3 mm ax ial images were obtained along with coronal and sagittal reformatted images. DOSE OPTIMIZATION: This facility uses dose optimization techniques as appropriate to perform exams, i ncluding at least one of the following techniques: 1. Automated exposure control. 2. Adjustment of the mA and/or kV according to patient size (this includes techniques or standardized protocols for targeted exams where dose is matched to the indication/reason for exam, i.e. extremiti es or head). 3. Use of iterative reconstructive technique. COMPARISON: None. FINDINGS: Lung Eckert: Lung eckert are clear for active infiltrates. There is severe compressive atelectasis of the right lung field secondary to a large pleural effusion . Mediastinal Structures: The heart is normal in size. There is a large pericardial effusion which has increased in size. There is evidence of coronary arterial disease. There is no aortic aneurysm. There is moderately severe atherosclerotic disease about the thoracic aorta. Pleural Space: There is a large right pleural effusion as well pleural effusion which is increased in size.. Axillae: Normal. Chest Wall: Normal. Liver: Normal. Spleen: Normal. Pancreas: Normal. Gallbladder: There are moderately severe distention. There are multiple small gallstones. Adrenal Glands: Normal. Kidneys: There is moderately severe cortical atrophy bilaterally. There are cortical cysts on the right. No follow-up imaging recommended. 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 Retroperitoneal Structures: There is diffuse atherosclerotic disease but the abdominal aorta and its branch vessels. Bowel Survey: The stomach is mildly distended with gas and fluid. There are multiple distended small bowel loops with air-fluid levels. The appendix is unremarkable. There is a moderate amount of residual stool in the rectum. Uterus and Adnexa: Normal. Prostate Gland: Normal in size. Urinary Bladder: Normal. Peritoneal Cavity: There is a moderate amount peritoneal ascites. Mesenteric Structures: Normal. Abdominal Wall: There is a small umbilical hernia containing fat. Bony Structures: There is a fracture identified involving the left rib. IMPRESSION: 1. Large right pleural effusion which is increased in size from prior study. There is se veronica compressive atelectasis of the right lung field. 2. Coronary arterial disease. 3. Findings suggestive of gastroenteritis. 4. Moderate amount of peritoneal ascites. 5. Fracture of the left 11th rib. 6. Moderate severe distention of the gallbladder with evidence of cholelithiasis. 7. Large pericardial effusion was has increased in size.. Electronically signed by: Ned Cohen MD 08/10/2023 11:36 PM MOVER Due to temporary technical issues with the PACS/Fluency reporting system, reports are being signed by the in house radiologists without review as a courtesy to insure prompt reporting. The interpreting radiologist is fully responsible for the content of the report.
--- NOTE | 2023-08-11 10:59 | RAD REPORT ---
EXAM DESCRIPTION: US - Abdomen Exam Limited - 08/11/2023 12:45 am CLINICAL HISTORY: Male, 67 years old, eval for cholecystitis COMPARISON: CT chest/abdomen/pelvis 08/10/2023 TECHNIQUE: Multiple sonographic images of the gallbladder were obtained with transabdominal ultrasou nd using 2D (grayscale), color Doppler and pulse Doppler techniques. FINDINGS: Liver: Image parenchyma is unremarkable. Biliary system: The gallbladder is distended with multiple layering echogenic stones. Fluid surroundi ng the gallbladder more consistent with ascites and pericholecystic edema. Gallbladder wall thickness measures 2 mm. Common duct diameter measures 6 mm. Sonographic Jacobson's sign was not indicated posit jerilyn or negative. Other: Right upper quadrant ascites has seen on comparison CT. IMPRESSION: Cholelithiasis and ascites without sonographic evidence of acute cholecystitis. Electronically signed by: Ba Nunes MD 08/11/2023 01:14 AM RUBBER GOODS ASSEMBLER Due to temporary technical issues with the PACS/Fluency reporting system, reports are being signed by the in house radiologists without review as a courtesy to insure prompt reporting. The interpreting radiologist is fully responsible for the content of the report.
--- NOTE | 2023-08-11 11:39 | RAD REPORT ---
EXAM DESCRIPTION: CT - Head Brain Wo Cont - 08/11/2023 3:45 am CLINICAL HISTORY: 67 years Male, gen weakness CLINICAL HISTORY: 5 mm axial images were obtained along with 3 mm reformatted coronal and sagittal i mages. This exam was performed according to our departmental dose-optimization program, which includes autom ated exposure control, adjustment of the mA and/or kV according to patient size and/or use of iterati ve reconstruction technique. COMPARISON: 07/24/2022. FINDINGS: No acute abnormal extracerebral fluid collections are demonstrated. The cortical sulci, ventricles, and cisterns are within normal limits. There are mild chronic bilateral periventricular microangiopathic white matter changes. There is atherosclerosis about the cavernous portions of the internal carotid arteries. There are no areas of altered attenuation identified to suggest acute hemorrhage, infarction, or mass lesion. The visualized portions of the paranasal sinuses and mastoid air cells are clear. IMPRESSION: 1. No acute intracranial abnormalities. Electronically signed by: Ned Cohen MD 08/10/2023 11:40 PM FLUTE POLISHER Due to temporary technical issues with the PACS/Fluency reporting system, reports are being signed by the in house radiologists without review as a courtesy to insure prompt reporting. The interpreting radiologist is fully responsible for the content of the report.
--- NOTE | 2023-08-11 14:13 | EKG ---
Test Date: 2023-08-10 Test Time: 22:51:35 Stock Checkerer: URI MEASUREMENT RESULTS: Intervals: Rate: 65 MN: QRSD: 90 QT: 582 QTc: 605 Whitney: P: MN: QRS: 80 T: 213 INTERPRETIVE STATEMENTS: Atrial fibrillation Septal infarct, age undetermined ST & T wave abnormality, consider anterolateral ischemia or digitalis effect Prolonged QT Abnormal ECG Compared to ECG 07/20/2022 12:29:48 ST (T wave) deviation now present Possible ischemia now present Prolonged QT interval now present Sinus rhythm no longer present First degree AV block no longer present Myocardial infarct finding still present Electronically Signed On 08-11-23 14:12:36 BORING MACHINE OPERATOR by Navi Parmar
== END ==
LOC: ER 21:12
DX: J90 Pleural effusion, not elsewhere classified (principal); I21.4 Non-ST elevation (NSTEMI) myocardial infarction; K52.9 Noninfective gastroenteritis and colitis, unspecified; E11.22 Type 2 diabetes mellitus with diabetic chronic kidney disease; I13.2 Hypertensive heart and chronic kidney disease with heart failure and with stage 5 chronic kidney disease, or end stage renal disease; N18.6 End stage renal disease; Z99.2 Dependence on renal dialysis; I48.91 Unspecified atrial fibrillation; Z79.01 Long term (current) use of anticoagulants; Z11.52 Encounter for screening for COVID-19; Z79.4 Long term (current) use of insulin; Z90.5 Acquired absence of kidney
CPT/HCPCS: 36415; 70450; 71250; 74176; 76705; 80048; 80076; 82550; 83605; 83690; 83735; 83880; 84484; 85025; 85610; 85730; 86850; 86900; 86901; 87040; 87804; 87811; 93005; 96365; 96366; 96367; 96368; 96375; 99285